=== PATIENT | female | born 1960 | race Caucasian/White ===

== ENCOUNTER 2017-05-05 10:03 | Outpatient (RCR) | payer MEDICARE, SELFPAY | END 2017-06-02 | LOC: PT 10:03 | PROVIDERS: Visit Provider Nurse Practitioner Family | DX: R60.0 Localized edema (principal) | CPT/HCPCS: G8987; G8988; G8989; 97162; 98960 ==

== ENCOUNTER 2017-06-08 08:35 | Outpatient (CLI) | payer MEDICARE, SELFPAY ==
[2017-06-08 14:03] LABS: PHA INR Fingerstick 2.2 (0.9-1.1)
== END 2017-06-08 14:05 | disposition home or self-care (01) ==
LOC: ACC 08:39
PROVIDERS: PCP Emergency Medicine; Visit Provider Emergency Medicine
DX: I82.401 Acute embolism and thrombosis of unspecified deep veins of right lower extremity; Z79.01 Long term (current) use of anticoagulants; Z51.81 Encounter for therapeutic drug level monitoring
CPT/HCPCS: 85610; 99211; G0463

== ENCOUNTER → 2017-06-27 09:00 | Outpatient (CLI) | payer MEDICARE, SELFPAY ==
[2017-06-27 15:59] LABS: PHA INR Fingerstick 3.7 (0.9-1.1)
== END | disposition home or self-care (01) ==
PROVIDERS: PCP Physician Assistant; Visit Provider Physician Assistant
DX: Z79.01 Long term (current) use of anticoagulants (principal); I82.811 Embolism and thrombosis of superficial veins of right lower extremity; Z51.81 Encounter for therapeutic drug level monitoring
CPT/HCPCS: 85610; 99211; G0463

== ENCOUNTER → 2017-07-05 11:33 | Outpatient (CLI) | payer MEDICARE, SELFPAY ==
[2017-07-05 17:01] LABS: PHA INR Fingerstick 2.3 (0.9-1.1)
== END | disposition home or self-care (01) ==
PROVIDERS: Family Provider Physician Assistant; PCP Emergency Medicine; Visit Provider Emergency Medicine
DX: Z79.01 Long term (current) use of anticoagulants (principal); Z51.81 Encounter for therapeutic drug level monitoring
CPT/HCPCS: 85610; 99211; G0463

== ENCOUNTER → 2017-07-18 13:59 | Outpatient (CLI) | payer MEDICARE, SELFPAY ==
--- NOTE | 2017-07-18 14:21 | XR_ITS ---
XR foot LT min 3V HISTORY: Foot pain ITS.REASON: B/L PTTD, COOL EXTREMITY, SKIN CHANGES ORDERING PHYSICIAN: Fatou Russo DPM PATIENT AGE: 56 years COMPARISON: None FINDINGS: Weightbearing views are performed. There is moderate hallux valgus with a first metatarsophalangeal angle of -34 degrees with osteoarthritic change of the first MTP joint and bony hypertrophic change of the distal aspect of the first metatarsal. There is pes planus with Mearys angle of -16 degrees. Hypertrophic changes are present at the talonavicular joint. No fracture or dislocation. There is a small calcaneal spur. IMPRESSION: 1. Pes planus. 2. Calyx valgus with bunion formation and osteoarthritic change of the first MTP joint. 3. Osteoarthritic change of the midfoot
--- NOTE | 2017-07-18 14:21 | XR_ITS ---
XR foot RT min 3V HISTORY: The peripheral ITS.REASON: SKIN CHANGES, B/L PTTD, COOL EXTREMITY ORDERING PHYSICIAN: Fatou Russo DPM PATIENT AGE: 56 years COMPARISON: None FINDINGS: The weightbearing views are performed. There is mild pes planus with osteoarthritic change of the talonavicular joint and the navicular cuneiform joint. There is moderate size calcaneal spur measuring 12 mm. There is moderate hallux valgus with first metatarsophalangeal angle of -44 degrees with osteoarthritic change of the first metatarsophalangeal joint and hypertrophic changes of the distal first metatarsal. No fracture or dislocation. No lytic or blastic change. IMPRESSION: Pes planus with hallux valgus and bunion formation with osteoarthritic change and calcaneal spur
== END ==
PROVIDERS: PCP Emergency Medicine; Referring Provider Podiatrist; Visit Provider Podiatrist
DX: I82.402 Acute embolism and thrombosis of unspecified deep veins of left lower extremity (principal); M20.41 Other hammer toe(s) (acquired), right foot; M20.42 Other hammer toe(s) (acquired), left foot; M21.41 Flat foot [pes planus] (acquired), right foot; M21.42 Flat foot [pes planus] (acquired), left foot; M19.071 Primary osteoarthritis, right ankle and foot; M19.072 Primary osteoarthritis, left ankle and foot; L60.0 Ingrowing nail; R23.9 Unspecified skin changes
CPT/HCPCS: 73630

== ENCOUNTER 2017-07-19 08:18 | Outpatient (CLI) | payer MEDICARE, SELFPAY | END 2017-07-19 15:22 | disposition home or self-care (01) | PROVIDERS: PCP Physician Assistant; Visit Provider Physician Assistant | DX: I82.401 Acute embolism and thrombosis of unspecified deep veins of right lower extremity (principal) | CPT/HCPCS: 85610; 99211; G0463 ==

== ENCOUNTER → 2017-07-28 08:57 | Outpatient (CLI) | payer MEDICARE, SELFPAY ==
--- NOTE | 2017-07-28 09:02 | US_ITS ---
US Arterial Ankle Brachial Ind INDICATION: Leg pain, claudication ORDERING PHYSICIAN: Fatou Russo DPM PATIENT AGE: 57 years TECHNIQUE: Segmental pressures obtained of both right and left leg. These are compared to brachial blood pressure to yield index at each level sampled including summary ANNA. The data sheets from the procedure are available in PACS FINDINGS Rest study only performed today No prior studies available for comparison. Blood pressures reported are in millimeters mercury. RIGHT LEG ANNA = 1.0 Right TBI equals 0.7. Brachial BP: 136 Thigh BP: 156 Calf BP: 134 Ankle PT: 134 Ankle DP : 131 Digit =98 LEFT LEG ANNA = 1.0 Left TBI 0.6 Brachial BPD: 128 Thigh BP: 141 Calf BP: 137 Ankle PT:139 Ankle DP: 135 Digit = 86 Pulses and waveforms: Normal IMPRESSION: 1. The ABIs are normal bilaterally with normal pulses and waveforms. 2. Left TBI is slightly low in the right TBI is borderline suggesting mild small vessel disease
== END ==
PROVIDERS: Family Provider Physician Assistant; PCP Physician Assistant; Visit Provider Podiatrist
DX: I73.9 Peripheral vascular disease, unspecified (principal); M79.671 Pain in right foot; M79.672 Pain in left foot
CPT/HCPCS: 93922

== ENCOUNTER 2017-08-22 12:00 | Outpatient (CLI) | payer MEDICARE, SELFPAY | END 2017-08-22 13:21 | disposition home or self-care (01) | LOC: ACC 12:02 | PROVIDERS: Family Provider Physician Assistant; PCP Emergency Medicine; Visit Provider Emergency Medicine | DX: Z79.01 Long term (current) use of anticoagulants (principal); Z51.81 Encounter for therapeutic drug level monitoring; I82.401 Acute embolism and thrombosis of unspecified deep veins of right lower extremity | CPT/HCPCS: 85610; 99211; G0463 ==

== ENCOUNTER 2017-09-15 10:30 | Outpatient (CLI) | payer MEDICARE, SELFPAY ==
[2017-09-15 13:40] LABS: PHA INR Fingerstick 2.2 (0.9-1.1)
== END 2017-09-15 13:55 | disposition home or self-care (01) ==
LOC: ACC 10:33
PROVIDERS: PCP Physician Assistant; Visit Provider Physician Assistant
DX: Z79.01 Long term (current) use of anticoagulants (principal); Z51.81 Encounter for therapeutic drug level monitoring; I82.401 Acute embolism and thrombosis of unspecified deep veins of right lower extremity
CPT/HCPCS: 85610; 99211; G0463

== ENCOUNTER → 2017-10-13 14:20 | Outpatient (CLI) | payer MEDICARE, SELFPAY ==
[2017-10-13 18:05] LABS: Basophils # 0.1 K/mm3 (0-0.2); Basophils % 0.7 % (0.1-2.0); Eosinophils # 0.2 K/mm3 (0.0-0.4); Hemoglobin 12.5 g/dL (12.2-16.2); Lymphocytes # 1.5 K/mm3 (0.7-4.5); Lymphocytes % 23.2 K/mm3 (10-50); Mean Corpuscular HGB Conc 32.8 g/dL (31.8-35.4); Mean Corpuscular Hemoglobin 30.4 pg (27.0-31.2); Mean Corpuscular Volume 92.8 fl (81-99); Mean Platelet Volume 9.2 fl (7.4-10.4); Monocytes # 0.4 K/mm3 (0.1-1.0); Monocytes % 6.2 % (1.7-9.3); Neutrophils # 4.4 K/mm3 (1.8-7.8); Neutrophils % 66.9 % (37.0-80.0); Platelet Count 275 K/mm3 (142-424); Red Cell Distribution Width 14.4 % (11.5-17.5); White Blood Count 6.6 K/mm3 (4.8-10.8)
[2017-10-13 18:28] LABS: Alanine Aminotransferase 16 U/L (12-78); Albumin Level 3.5 gm/dL (3.4-5.0); Albumin/Globulin Ratio 0.9 (1.1-1.8); Alkaline Phosphatase 89 U/L (46-116); Anion Gap 10.9 mEq/L (5-15); Aspartate Amino Transferase 21 U/L (15-37); Bilirubin,Total 0.2 mg/dL (0.2-1.0); Blood Urea Nitrogen 24 mg/dL (7-18); Calcium 9.5 mg/dL (8.5-10.1); Carbon Dioxide 31 mmol/L (21.0-32.0); Chloride 102 mmol/L (98-107); Creatinine,Serum 0.97 mg/dL (0.55-1.02); Estimated Glomerular Filt Rate 59 ml/min (>60); Free T4 (Free Thyroxine) 1.14 ng/dl (0.76-1.46); GFR (African American) 72 ML/MIN (>60); Globulin 3.7 gm/dl (1.3-3.2); Glucose 92 mg/dL (74-106); Potassium 4.9 mmoL/L (3.5-5.1); Sodium 139 mmol/L (136-145); Thyroid Stimulating Hormone 1.98 uIU/ml (0.358-3.740); Total Protein,Serum 7.2 gm/dL (6.4-8.2)
== END ==
PROVIDERS: Visit Provider Emergency Medicine
DX: Z79.01 Long term (current) use of anticoagulants (principal); R53.83 Other fatigue; R07.9 Chest pain, unspecified
CPT/HCPCS: 80053; 84439; 84443; 85025

== ENCOUNTER 2017-11-21 12:52 | Outpatient (CLI) | payer MEDICARE, SELFPAY ==
[2017-11-21 13:51] LABS: PHA INR Fingerstick 2.8 (0.9-1.1)
== END 2017-11-21 13:57 | disposition home or self-care (01) ==
LOC: ACC 12:54
PROVIDERS: PCP Physician Assistant; Visit Provider Physician Assistant
DX: Z79.01 Long term (current) use of anticoagulants (principal); Z51.81 Encounter for therapeutic drug level monitoring; I82.409 Acute embolism and thrombosis of unspecified deep veins of unspecified lower extremity
CPT/HCPCS: 85610; 99211; G0463

== ENCOUNTER → 2017-12-20 11:26 | Outpatient (REF) | payer MEDICARE, SELFPAY | LOC: LAB 11:26 | PROVIDERS: Visit Provider Physician Assistant | DX: L02.31 Cutaneous abscess of buttock (principal) | CPT/HCPCS: 87070; 87077; 87205 ==

== ENCOUNTER 2017-12-20 11:41 | Outpatient (CLI) | payer MEDICARE, SELFPAY ==
[2017-12-20 15:38] LABS: PHA INR Fingerstick 2.4 (0.9-1.1)
== END 2017-12-20 15:56 | disposition home or self-care (01) ==
LOC: ACC 11:42
PROVIDERS: Visit Provider Physician Assistant
DX: Z79.01 Long term (current) use of anticoagulants (principal); Z51.81 Encounter for therapeutic drug level monitoring; I82.401 Acute embolism and thrombosis of unspecified deep veins of right lower extremity; L02.31 Cutaneous abscess of buttock
CPT/HCPCS: 85610; 87070; 87205; 99211; G0463

== ENCOUNTER → 2018-01-26 06:28 | Outpatient (CLI) | payer MEDICARE, SELFPAY ==
--- NOTE | 2018-01-26 06:31 | NVE_ITS ---
Venous Exam Indications: 782.3 Edema. IMPRESSIONS 1. There is no evidence of significant Reflux. 2. No evidence of deep or superficial vein thrombosis involving the right lower extremity History: PMH: Deep vein thrombosis. Right lower extremity venous duplex evaluation. Doppler flow study including spectral analysis, color and bruno scale imaging. Location: Vascular laboratory. Patient status: Outpatient. CRITICAL FINDINGS - Reported to: HELIO - Read back and verified. - 01/26/18 - 824 - NONE Tables: Venous flow and imaging: + +-------+ + Location Overall Flow properties + +-------+ + Right common femoral Patent Normal phasicity; spontaneous; normal augmentation; compressible + +-------+ + Right saphenofemoral junction Patent Compressible + +-------+ + Right profunda femoral Patent Compressible + +-------+ + Right femoral Patent Normal phasicity; spontaneous; normal augmentation; compressible + +-------+ + Right greater saphenous Patent Normal phasicity; spontaneous; normal augmentation; compressible + +-------+ + Right popliteal Patent Normal phasicity; spontaneous; normal augmentation; compressible + +-------+ + Right posterior tibial Patent Compressible + +-------+ + Right peroneal Patent Compressible + +-------+ + Right gastrocnemius Patent Compressible + +-------+ + Right soleal Patent Compressible + +-------+ + (Report amended ) Electronically signed by: Chico Alejo [id number]
== END ==
PROVIDERS: Family Provider Physician Assistant; PCP Physician Assistant; Visit Provider Internal Medicine
DX: I82.409 Acute embolism and thrombosis of unspecified deep veins of unspecified lower extremity (principal); R06.00 Dyspnea, unspecified; R07.9 Chest pain, unspecified
CPT/HCPCS: 93971

== ENCOUNTER → 2018-01-31 07:16 | Outpatient (CLI) | payer MEDICARE, SELFPAY ==
--- NOTE | 2018-01-31 08:13 | CT_ITS ---
CT angio chest HISTORY: ITS.REASON: chest pain ORDERING PHYSICIAN: Thomas Allan MD PATIENT AGE: 57 years COMPARISON: None TECHNIQUE: Axial images obtained following the administration of 75 mL of Isovue 370 . Sagittal, and coronal reformatted images are also generated and reviewed. All CT scans at the facility use one or more dose reduction, viz: automated exposure control, ma/kV adjustment per patient size (including targeted exams where dose is matched to indication, i.e. head), or iterative reconstruction technique. FINDINGS: PULMONARY ARTERIES:No pulmonary embolus evident. AORTA:No acute finding. No thoracic aortic aneurysm or dissection evident LUNGS:There is a 3 mm noncalcified nodule right lower lobe laterally, a 6 mm noncalcified nodule in the superior segment of the left lower lobe laterally, and a 4 mm noncalcified nodule left lower lobe in the lung bases.. PLEURAL SPACES:No significant effusion. No evidence of pneumothorax. HEART:Unremarkable. Normal heart size. No significant pericardial effusion. MEDIASTINAL AND HILAR STRUCTURES:No mediastinal or hilar mass evident. No dominant adenopathy. BONY STRUCTURES:No acute bony abnormalities apparent. Degenerative changes thoracic spine LYMPH NODES:No enlarged lymph nodes evident UPPER ABDOMEN:Prior gastric surgery. IMPRESSION: 1. No acute finding. No evidence of pulmonary embolus or aortic aneurysm or dissection. 2. There are 3 noncalcified pulmonary nodules largest in the left lower lobe a 6 mm. Suggest 6 month follow-up
--- NOTE | 2018-01-31 08:13 | NM_ITS ---
History and Indications: Hypertension, chronic tobacco use, family history, shortness of breath and fatigue Procedure: Patient received a 0.4 mg of Lexiscan, resting heart rate was 68 bpm resting blood pressure 136/73, with Lexiscan maximum heart rate achieved was 90 bpm which is less than 85% of the maximum predicted heart rate and a blood pressure was 116/49. With Lexiscan patient complained of shortness of breath. Electrocardiogram: Resting electrocardiogram showed sinus rhythm nonspecific ST-T changes, with Lexiscan there is less than 1.[address] segment depression noted from the baseline EKG. The EKG portion of the Lexiscan Myoview is nondiagnostic. Cardiac stress and resting SPECT images: Cardiac stress and rest SPECT images were obtained using technetium 99 Myoview 31.4 mCi at stress 9.6 mCi at rest. Gated SPECT further analysis of segmental wall motion and calculation of the ejection fraction also done. Cardiac stress and rest images show a mild reversible defect involving the anteroapical and apical wall, suggestive of reversible ischemia, computer derived ejection fraction is over 65% with no obvious regional wall motion abnormality, right ventricle is normal size and contractility. This study is technically limited due to patient's body habitus Conclusion: 1. The EKG portion of the Lexiscan Myoview is nondiagnostic. 2. Scintigraphic evidence of mild reversible ischemia involving the anteroapical and apical wall, however this study is technically limited due to patient's body habitus. Computer derived ejection fraction is over 65% with no obvious regional wall motion abnormality, right ventricle is normal size and contractility. 3. Likely abnormal Myoview perfusion imaging
--- NOTE | 2018-01-31 08:39 | HMH.ITSHM ---
NEURONTIN LEVOTHYROXINE METHADONE ATENOLOL
[2018-01-31 11:38] LABS: Blood Urea Nitrogen 28 mg/dL (7-18); Creatinine,Serum 1.18 mg/dL (0.55-1.02); Estimated Glomerular Filt Rate 47 ml/min (>60); GFR (African American) 57 ML/MIN (>60)
== END ==
PROVIDERS: Family Provider Physician Assistant; PCP Physician Assistant; Visit Provider Internal Medicine
DX: R39.9 Unspecified symptoms and signs involving the genitourinary system; R06.09 Other forms of dyspnea; R60.0 Localized edema; R07.9 Chest pain, unspecified
CPT/HCPCS: 36415; 71275; 78452; 82565; 84520; 93017; A9502; J2785; Q9967

== ENCOUNTER → 2018-02-02 11:18 | Outpatient (CLI) | payer MEDICARE, SELFPAY ==
[2018-02-02 11:22] LABS: Microscopic, Urine URINE MICROSCOPIC (MICROSCOPIC)
[2018-02-02 11:49] LABS: Appearance,Urine SL CLOUDY (Clear); Bilirubin,Urine Negative (Negative); Blood, Urine 3+ (Negative); Color,Urine YELLOW (Yellow); Glucose,Urine (UA) Negative (Negative); Ketones,Urine Negative (Negative); Leukocyte Esterase,Urine Negative (Negative); Nitrate,Urine Negative (Negative); Protein,Urine Negative (Negative); Urobilinogen,Urine 0.2 EU/dl (0.2)
[2018-02-02 11:55] LABS: Bacteria,Urine Trace /lpf; WBC,Urine Occasional #/hpf (0-3)
== END ==
PROVIDERS: Internal Medicine Cardiovascular Disease; Family Provider Physician Assistant; PCP Physician Assistant; Visit Provider Emergency Medicine
DX: R39.9 Unspecified symptoms and signs involving the genitourinary system (principal)
CPT/HCPCS: 81001

== ENCOUNTER → 2018-02-09 14:25 | Outpatient (CLI) | payer MEDICARE, SELFPAY ==
[2018-02-09 17:16] LABS: Blood Urea Nitrogen 26 mg/dL (7-18); Calcium 8.5 mg/dL (8.5-10.1); Carbon Dioxide 33 mmol/L (21.0-32.0); Chloride 101 mmol/L (98-107); Estimated Glomerular Filt Rate 51 ml/min (>60); GFR (African American) 62 ML/MIN (>60); Glucose 94 mg/dL (74-106)
[2018-02-09 17:39] LABS: Sodium 134 mmol/L (136-145)
[2018-02-09 17:40] LABS: Anion Gap 4.2 mEq/L (5-15); Potassium 4.2 mmoL/L (3.5-5.1)
== END ==
PROVIDERS: PCP Emergency Medicine; Visit Provider Urology
DX: R06.09 Other forms of dyspnea (principal); R60.0 Localized edema
CPT/HCPCS: 36415; 80048; 83880

== ENCOUNTER → 2018-02-27 09:12 | Outpatient (REF) | payer MEDICARE, SELFPAY ==
[2018-02-27 13:43] LABS: Basophils % 0.8 % (0.1-2.0); Eosinophils # 0.2 K/mm3 (0.0-0.4); Eosinophils % 2.9 % (0.1-12.0); Hematocrit 41.7 % (37.0-47.0); Lymphocytes # 0.9 K/mm3 (0.7-4.5); Lymphocytes % 16.9 K/mm3 (10-50); Mean Corpuscular HGB Conc 31.2 g/dL (31.8-35.4); Mean Corpuscular Hemoglobin 28.8 pg (27.0-31.2); Mean Corpuscular Volume 92.4 fl (81-99); Mean Platelet Volume 9.1 fl (7.4-10.4); Monocytes # 0.3 K/mm3 (0.1-1.0); Monocytes % 5.5 % (1.7-9.3); Neutrophils % 73.9 % (37.0-80.0); Platelet Count 278 K/mm3 (142-424); Red Blood Count 4.51 M/mm3 (4.20-5.40); Red Cell Distribution Width 15.1 % (11.5-17.5); White Blood Count 5.5 K/mm3 (4.8-10.8)
[2018-02-27 14:44] LABS: Alanine Aminotransferase 16 U/L (12-78); Albumin Level 3.4 gm/dL (3.4-5.0); Albumin/Globulin Ratio 0.9 (1.1-1.8); Alkaline Phosphatase 95 U/L (46-116); Anion Gap 12.7 mEq/L (5-15); Aspartate Amino Transferase 17 U/L (15-37); Bilirubin,Total 0.3 mg/dL (0.2-1.0); Blood Urea Nitrogen 22 mg/dL (7-18); Calcium 8.9 mg/dL (8.5-10.1); Carbon Dioxide 29 mmol/L (21.0-32.0); Chloride 102 mmol/L (98-107); Chol/HDL Ratio 3.6 (1-3.5); Cholesterol 178 mg/dL (140-200); Creatinine,Serum 1.01 mg/dL (0.55-1.02); Estimated Glomerular Filt Rate 56 ml/min (>60); GFR (African American) 68 ML/MIN (>60); Globulin 3.6 gm/dl (1.3-3.2); Glucose 86 mg/dL (74-106); HDL Cholesterol 49 mg/dL (29-89); LDL Cholesterol 113 mg/dL (0-130); Potassium 4.7 mmoL/L (3.5-5.1); Sodium 139 mmol/L (136-145); T4 (Thyroxine) 8.7 ug/dl (4.7-13.3); Triglycerides 82 mg/dL (30-200); VLDL Cholesterol 16 mg/dL (0-40)
== END ==
LOC: LAB 09:12
PROVIDERS: Visit Provider Physician Assistant
DX: I11.9 Hypertensive heart disease without heart failure (principal); R53.83 Other fatigue
CPT/HCPCS: 80053; 80061; 82652; 84436; 84443; 85025

== ENCOUNTER 2018-03-05 10:23 | Outpatient (CLI) | payer MEDICARE, SELFPAY ==
--- NOTE | 2018-03-05 10:25 | MM_ITS ---
MM Dig screening mamm BI w/CAD ORDERING PHYSICIAN : GENEVA Lopez PATIENT AGE: 57 years GENDER: Female COMPARISON: Digital mammogram November 2016;. Film mammogram August 2006 INDICATION: ITS.REASON: Breast cancer screening. No hormones. No new complaintsPrevious cyst aspiration Family history. Maternal aunt with breast cancer TECHNIQUE: Standard CC and MLO images were obtained. R2 CAD reviewed. Additional nipple profile cc views bilaterally FINDINGS: Low-density breast with generalized fatty replacement.. Mild to moderate asymmetry with slightly more evident fibroglandular elements throughout the left breast and right RIGHT BREAST:No areas of concern follow-up in one year on right LEFT BREAST: I would note Patient denies female hormones Although the fibroglandular elements is slightly more apparent today, similar asymmetric pattern goes back to at least 2006 & 2004 appears relatively stable. IMPRESSION: Stable bilateral mammogram Generalized fatty replacement with overall Stable mild asymmetry Follow-up in one year recommended BI-RADS Category: 2 Benign Finding(s) RECOMMENDED FOLLOW-UP: 1YR 1 YEAR FOLLOW-UP (A letter has been sent to the patient regarding results of the study.)
[2018-03-05 13:46] LABS: PHA INR Fingerstick 3.8 (0.9-1.1)
== END 2018-03-05 13:51 | disposition home or self-care (01) ==
LOC: RAD 10:24 → ACC 11:42
PROVIDERS: Family Provider Physician Assistant; PCP Emergency Medicine; Visit Provider Physician Assistant
DX: Z12.31 Encounter for screening mammogram for malignant neoplasm of breast (principal); Z79.01 Long term (current) use of anticoagulants
CPT/HCPCS: 77067; 85610; 99211; G0463

== ENCOUNTER 2018-04-19 10:09 | Outpatient (CLI) | payer MEDICARE, SELFPAY ==
[2018-04-19 10:43] LABS: PHA INR Fingerstick 3.3 (0.9-1.1)
== END 2018-04-19 10:45 | disposition home or self-care (01) ==
PROVIDERS: PCP Emergency Medicine; Visit Provider Emergency Medicine
DX: Z51.81 Encounter for therapeutic drug level monitoring (principal); Z79.01 Long term (current) use of anticoagulants; I82.409 Acute embolism and thrombosis of unspecified deep veins of unspecified lower extremity
CPT/HCPCS: 85610; 99211; G0463

== ENCOUNTER 2018-06-20 14:27 | Outpatient (CLI) | payer MEDICARE, SELFPAY ==
[2018-06-20 15:17] LABS: PHA INR Fingerstick 2.2 (0.9-1.1)
== END 2018-06-20 15:29 | disposition home or self-care (01) ==
LOC: ACC 14:30
PROVIDERS: PCP Emergency Medicine; Visit Provider Emergency Medicine
DX: Z51.81 Encounter for therapeutic drug level monitoring (principal); Z79.01 Long term (current) use of anticoagulants; I82.409 Acute embolism and thrombosis of unspecified deep veins of unspecified lower extremity
CPT/HCPCS: 85610; 99211; G0463

== ENCOUNTER → 2018-07-03 09:18 | Outpatient (CLI) | payer MEDICARE, SELFPAY ==
[2018-07-03 10:34] LABS: INR 1.44 (0.9-1.1); Prothrombin Time 14.7 seconds (9.4-11.8)
== END ==
PROVIDERS: Emergency Medicine; PCP Physician Assistant; Visit Provider Internal Medicine Cardiovascular Disease
DX: Z51.81 Encounter for therapeutic drug level monitoring (principal); Z79.01 Long term (current) use of anticoagulants; I82.409 Acute embolism and thrombosis of unspecified deep veins of unspecified lower extremity
CPT/HCPCS: 36415; 85610

== ENCOUNTER 2018-07-11 12:53 | Outpatient (CLI) | payer MEDICARE, SELFPAY ==
[2018-07-11 14:53] LABS: PHA INR Fingerstick 2.3 (0.9-1.1)
== END 2018-07-11 14:59 | disposition home or self-care (01) ==
LOC: ACC 12:54
PROVIDERS: PCP Emergency Medicine; Visit Provider Emergency Medicine
DX: Z51.81 Encounter for therapeutic drug level monitoring (principal); Z79.01 Long term (current) use of anticoagulants; I82.409 Acute embolism and thrombosis of unspecified deep veins of unspecified lower extremity
CPT/HCPCS: 85610; 99211; G0463

== ENCOUNTER 2018-09-18 08:44 | Outpatient (CLI) | payer MEDICARE, SELFPAY ==
[2018-09-18 10:16] LABS: Blood Urea Nitrogen 22 mg/dL (7-18); Creatinine,Serum 1.05 mg/dL (0.55-1.02); Estimated Glomerular Filt Rate 54 ml/min (>60); GFR (African American) 65 ML/MIN (>60)
== END 2018-09-18 10:44 | disposition home or self-care (01) ==
PROVIDERS: PCP Physician Assistant; Visit Provider Anesthesiology Pain Medicine
DX: Z51.81 Encounter for therapeutic drug level monitoring (principal); Z79.01 Long term (current) use of anticoagulants; M47.817 Spondylosis without myelopathy or radiculopathy, lumbosacral region; M47.816 Spondylosis without myelopathy or radiculopathy, lumbar region
CPT/HCPCS: 36415; 82565; 84520; 85610; 93005; 99211; G0463

== ENCOUNTER → 2018-09-20 08:18 | Outpatient (CLI) | payer MEDICARE, SELFPAY ==
--- NOTE | 2018-09-20 08:21 | MR_ITS ---
MR pelvis wo con CLINICAL INDICATION: Left-sided hip and groin pain, left leg pain and numbness ITS.REASON: RADICULOPATHY ORDERING PHYSICIAN: Titi Brown MD PATIENT AGE: 58 years Comparison: None TECHNIQUE: Multiplanar multiecho sequences performed without contrast. FINDINGS: There is extensive motion artifact degrading fine detail. There are osteoarthritic changes involving both hips. There are small bilateral hip joint effusions slightly larger on the left.. No fracture or dislocation. No bony destructive process or soft tissue masses. No evidence of avascular necrosis or bone marrow edema. There is increased T2 signal along the deep aspect of the left iliac is muscle and along the lateral aspect of the iliopsoas at the hip joint level. The etiology of the fluid is indeterminate. This could be due to bursitis or could be posttraumatic.. There is some increased T2 signal along the left aspect of the L5-S1 junction possibly related to type I endplate changes and may be better evaluated with MRI of the lumbar spine There is increased T2 signal along the right lower anterior abdominal wall consistent with an ileostomy site IMPRESSION: Mild bilateral osteoarthritis of the hips with bilateral hip joint effusions slightly larger on the left with fluid along the left iliopsoas muscle laterally extending from the deep iliac is region possibly related to bursitis or could be posttraumatic. No evidence of avascular necrosis, bone marrow edema, or bony destructive process Bilateral osteoarthritis
== END ==
PROVIDERS: PCP Physician Assistant; Visit Provider Anesthesiology Pain Medicine
DX: M47.817 Spondylosis without myelopathy or radiculopathy, lumbosacral region (principal)
CPT/HCPCS: 72195

== ENCOUNTER → 2018-09-26 08:18 | Outpatient (CLI) | payer MEDICARE, SELFPAY ==
--- NOTE | 2018-09-26 08:20 | MR_ITS ---
MR lumbar spine wo/w con, MR 3-d myelogram/MRCP HISTORY: LT sided groin pain. Low back pain. Prior HX back surgery 1999. LT leg pain, numbness, and tingling X1YR. ITS.REASON: RADICULOPATHY ORDERING PHYSICIAN: Titi Brown MD PATIENT AGE: 58 years Comparison: None TECHNIQUE: Standard multiplanar multiecho sequences are performed without and with gadolinium enhancement . 3-D MIP and myelographic images are also rendered and reviewed FINDINGS: There is normal alignment. The spinal cord ends at the T12-L1 level. T10-T11: Mild degenerative disc disease. T11-T12 and T12-L1 have an unremarkable appearance. L1-L2: Mild degenerative disc disease. Mild facet hypertrophic change with mild right lateral recess narrowing. L2-L3: Degenerative disc disease with mild concentric bulging disc along with mild facet and ligamentum flavum hypertrophy with mild bilateral lateral recess and foraminal narrowing. L3-L4: Degenerative disc disease with mild facet and ligamentum flavum hypertrophy with moderate right-sided foraminal narrowing and mild left foraminal narrowing. There are type I endplate changes at this level. L4-L5: Degenerative disc disease with bulging disc. Prior left-sided laminectomy. Mild facet and ligamentum flavum hypertrophy with moderate left-sided foraminal narrowing. There is some minimal enhancement of the posterior aspect of the disc at this region and some minimal enhancement of the left L5 nerve root suggesting some minimal epidural fibrosis. L5-S1: Facet hypertrophic change with moderate to severe left-sided foraminal narrowing with impingement upon the exiting L5 nerve root. There is mild degenerative disc disease at this level with type I endplate changes on the left. No recurrent herniated disc or canal stenosis. IMPRESSION: 1. Multilevel lumbar spondylosis with degenerative disc disease along with facet hypertrophy with lateral recess and foraminal narrowing. Please see above for detailed description at each level. The foraminal narrowing is most severe on the left at L5-S1. 2. Postsurgical changes at L4-L5 with left-sided laminectomy. There is some minimal bulging disc with some minimal enhancement of the posterior aspect of the disc and the left proximal L5 nerve root which may be related to some mild epidural fibrosis.
--- NOTE | 2018-09-26 09:40 | HMH.ITSHM ---
Current Home Medications as stated by this patient Carlos Brunner or public service representative. []KRYSTINA ZARATE NEURONTIN
== END ==
PROVIDERS: PCP Emergency Medicine; Visit Provider Anesthesiology Pain Medicine
DX: M47.817 Spondylosis without myelopathy or radiculopathy, lumbosacral region (principal)
CPT/HCPCS: 72158; 76376; A9576

== ENCOUNTER 2018-12-04 13:42 | Outpatient (CLI) | payer MEDICARE, SELFPAY ==
[2018-12-04 14:21] LABS: PHA INR Fingerstick 2.8 (0.9-1.1)
== END 2018-12-04 14:22 | disposition home or self-care (01) ==
LOC: ACC 13:43
PROVIDERS: PCP Emergency Medicine; Visit Provider Emergency Medicine
DX: Z51.81 Encounter for therapeutic drug level monitoring (principal); Z79.01 Long term (current) use of anticoagulants; I82.409 Acute embolism and thrombosis of unspecified deep veins of unspecified lower extremity
CPT/HCPCS: 85610; 99211; G0463

== ENCOUNTER → 2019-01-15 17:19 | Outpatient (CLI) | payer MEDICARE, SELFPAY ==
[2019-01-15 20:27] LABS: Amphetamine/Metha Screen,Urine Negative ng/mL (<1000); Barbiturates Screen,Urine Negative ng/mL (<200); Benzodiazepines Screen,Urine Negative ng/mL (<200); Cannabinoid Screen,Urine Negative ng/mL (<50); Cocaine Screen,Urine Negative ng/mL (<300); Methadone Screen,Urine Positive ng/mL (<300); Opiate Screen,Urine Negative ng/mL (<300); Phencyclidine Screen,Urine Negative ng/mL (<25)
== END ==
PROVIDERS: Visit Provider Physician Assistant
DX: Z79.899 Other long term (current) drug therapy (principal)
CPT/HCPCS: 80305

== ENCOUNTER → 2019-01-31 20:19 | Outpatient (CLI) | payer MEDICARE, SELFPAY | PROVIDERS: PCP Physician Assistant; Visit Provider Physician Assistant | DX: G47.33 Obstructive sleep apnea (adult) (pediatric) (principal); I10 Essential (primary) hypertension; R40.0 Somnolence; R06.83 Snoring | CPT/HCPCS: 95810 ==

== ENCOUNTER → 2019-02-25 20:17 | Outpatient (CLI) | payer MEDICARE, SELFPAY | PROVIDERS: PCP Physician Assistant; Visit Provider Physician Assistant | DX: G47.33 Obstructive sleep apnea (adult) (pediatric) (principal); J44.9 Chronic obstructive pulmonary disease, unspecified | CPT/HCPCS: 95811 ==

== ENCOUNTER 2019-03-26 14:17 | Outpatient (CLI) | payer MEDICARE, SELFPAY | END 2019-03-26 15:47 | disposition home or self-care (01) | LOC: ACC 14:18 | PROVIDERS: PCP Emergency Medicine; Visit Provider Emergency Medicine | DX: Z51.81 Encounter for therapeutic drug level monitoring (principal); Z79.01 Long term (current) use of anticoagulants | CPT/HCPCS: 85610; 99211; G0463 ==

== ENCOUNTER → 2019-05-07 11:27 | Outpatient (CLI) | payer MEDICARE, SELFPAY | PROVIDERS: PCP Emergency Medicine; Visit Provider Nurse Practitioner Family | DX: Z51.81 Encounter for therapeutic drug level monitoring (principal); Z79.01 Long term (current) use of anticoagulants ==

== ENCOUNTER 2019-05-07 12:12 | Outpatient (CLI) | payer MEDICARE, SELFPAY ==
[2019-05-07 12:59] LABS: INR 5.71 (0.9-1.1); Prothrombin Time 54.7 seconds (9.4-11.8)
[2019-05-07 13:53] LABS: PHA INR Fingerstick 5.1 (0.9-1.1)
== END 2019-05-07 15:07 | disposition home or self-care (01) ==
LOC: ACC 12:15
PROVIDERS: Nurse Practitioner Family; Visit Provider Emergency Medicine
DX: R09.89 Other specified symptoms and signs involving the circulatory and respiratory systems (principal); R69 Illness, unspecified; Z51.81 Encounter for therapeutic drug level monitoring; Z79.01 Long term (current) use of anticoagulants
CPT/HCPCS: 36415; 85610; 86695; 86696; 99211; G0463

== ENCOUNTER → 2020-01-22 18:43 | Outpatient (CLI) | payer MEDICARE, SELFPAY ==
[2020-01-22 19:04] LABS: Basophils # 0.1 K/mm3 (0-0.2); Basophils % 1.1 % (0.1-2.0); Eosinophils # 0.3 K/mm3 (0.0-0.4); Hematocrit 38.6 % (37.0-47.0); Hemoglobin 12.5 g/dL (12.2-16.2); Lymphocytes # 2.2 K/mm3 (0.7-4.5); Lymphocytes % 30.9 % (10-50); Mean Corpuscular HGB Conc 32.4 g/dL (31.8-35.4); Mean Corpuscular Hemoglobin 30.5 pg (27.0-31.2); Mean Corpuscular Volume 94.1 fl (81-99); Mean Platelet Volume 8.8 fl (7.4-10.4); Monocytes # 0.5 K/mm3 (0.1-1.0); Monocytes % 6.6 % (1.7-9.3); Neutrophils % 57.4 % (37.0-80.0); Platelet Count 288 K/mm3 (142-424); Red Cell Distribution Width 14.1 % (11.5-17.5)
[2020-01-22 19:07] LABS: Chloride 99 mmol/L (98-107)
[2020-01-22 19:08] LABS: Potassium 4.5 mmoL/L (3.5-5.1); Sodium 138 mmol/L (136-145)
[2020-01-22 19:10] LABS: Alanine Aminotransferase 12 U/L (12-78); Alkaline Phosphatase 85 U/L (38-126); Anion Gap 12.5 mEq/L (5-15); Aspartate Amino Transferase 29 U/L (14-36); Bilirubin,Total 0.5 mg/dl (0.2-1.3); Blood Urea Nitrogen 19 mg/dl (7-17); Carbon Dioxide 31 mmol/L (22.0-30.0); Estimated Glomerular Filt Rate 57 ml/min (>60); GFR (African American) 69 ML/MIN (>60)
[2020-01-22 19:11] LABS: Albumin Level 3.9 g/dl (3.5-5.0); Albumin/Globulin Ratio 1.1 (1.1-1.8); Calcium 9.3 mg/dl (8.4-10.2); Chol/HDL Ratio 3.5 (1-3.5); Cholesterol 202 mg/dl (140-200); Globulin 3.4 g/dL (1.3-3.2); Glucose 80 mg/dl (74-100); HDL Cholesterol 58 mg/dl (40-60); Total Protein,Serum 7.3 g/dl (6.3-8.2); Triglycerides 116 mg/dl (30-150); VLDL Cholesterol 23 mg/dL (0-40)
[2020-01-22 19:22] LABS: Direct LDL Cholesterol 110.04 mg/dL (100-129)
[2020-01-22 19:27] LABS: T4 (Thyroxine) 9.7 ug/dl (5.53-11.0)
[2020-01-22 19:32] LABS: 25-OH Vitamin D, Total 24.4 ng/mL (30-100)
[2020-01-22 19:41] LABS: Thyroid Stimulating Hormone 3.88 uIU/mL (0.465-4.68)
== END ==
PROVIDERS: Visit Provider Physician Assistant
DX: E07.9 Disorder of thyroid, unspecified (principal); E55.9 Vitamin D deficiency, unspecified; I11.9 Hypertensive heart disease without heart failure
CPT/HCPCS: 80053; 80061; 82306; 84436; 84443; 85025

== ENCOUNTER 2020-01-24 08:56 | Outpatient (CLI) | payer MEDICARE, SELFPAY ==
[2020-01-24 13:46] LABS: PHA INR Fingerstick 2.8 (0.9-1.1)
== END 2020-01-24 13:52 | disposition home or self-care (01) ==
LOC: ACC 08:57
PROVIDERS: Emergency Medicine; PCP Physician Assistant; Visit Provider Internal Medicine
DX: Z79.01 Long term (current) use of anticoagulants (principal)
CPT/HCPCS: 85610; 99211; G0463

== ENCOUNTER → 2020-01-24 16:12 | Outpatient (CLI) | payer MEDICARE, SELFPAY ==
[2020-01-26 08:58] LABS: Covid-19 Nasal PCR Sendout UK Not Detected
== END ==
PROVIDERS: PCP Physician Assistant; Visit Provider Nurse Practitioner
DX: Z03.818 Encounter for observation for suspected exposure to other biological agents ruled out (principal); Z51.81 Encounter for therapeutic drug level monitoring; Z79.01 Long term (current) use of anticoagulants
CPT/HCPCS: 85610; 99211; G0463; U0003

== ENCOUNTER 2020-04-06 13:16 | Outpatient (CLI) | payer MEDICARE, SELFPAY ==
--- NOTE | 2020-04-06 13:31 | MR_ITS ---
PROCEDURE: MR LUMBAR SPINE WO CON CLINICAL INDICATION: SPONDYLS WITHOUT MYELOPATHY OR RADICULOPATHY CHRONIC LOW BACK PAIN, PREVIOUS BACK SURGERIES, TINGLING/NUMBNESS DOWN LEFT LEG. PRIOR 09-26-18 COMPARISON: MR SPLUMBWW MR lumbar spine wo/w con from 09/26/2018 TECHNIQUE: Standard multiplanar multiecho sequences are performed without contrast. 3-D MIP and myelographic images are also rendered and reviewed FINDINGS: There is normal alignment. The spinal cord ends at the T12-L1 level. T12-L1: Unremarkable. L1-L2: Degenerative disc disease with anterior osteophytes. L2-L3: Degenerative disc disease with mild bulging disc with facet and ligamentum hypertrophy. L3-L4: Degenerative disc disease. L4-5: Degenerative disc disease. Prior L5 left-sided laminectomy. There is a small broad based area of bony ridging versus small disc osteophyte complex at L4-5 centrally and slightly to the left abutting the anterior medial aspect of the left L5 nerve root.. There is mild bilateral lateral recess and foraminal narrowing. L5-S1: Moderate left-sided facet and ligamentum hypertrophy which is causing left-sided foraminal narrowing and impinging upon the exiting L5 nerve root similar to the previous exam. There has been a prior laminotomy on the left at L5. No extruded herniated disc is evident. IMPRESSION: 1. Multilevel lumbar spondylosis. Please see above for detailed description at each level. 2. L4-5: Degenerative disc disease. Prior L5 left-sided laminectomy. There is a small broad based area of bony ridging versus small disc osteophyte complex at L4-5 centrally and slightly to the left slightly more prominent compared to the previous exam abutting the anterior medial aspect of the left L5 nerve root.. There is mild bilateral lateral recess and foraminal narrowing. 3. L5-S1: Moderate left-sided facet and ligamentum hypertrophy which is causing left-sided foraminal narrowing and impinging upon the exiting L5 nerve root similar to the previous exam. There has been a prior laminotomy on the left at L5. 4. No extruded herniated disc is evident. Dictated by: Chico Alejo MD 04/08/2020 09:45 Chico Alejo MD in [place] 04/08/2020 09:45
[2020-04-06 14:53] LABS: PHA INR Fingerstick 2.7 (0.9-1.1)
--- NOTE | 2020-04-06 16:38 | ECG_ITS ---
APPROVED REPORT Exam: Resting ECG HR:68 bpm ECG Measurements Heart Rate 68 AXES WY 126 P 16 QRSd 78 QRS 24 QT 406 T -1 QTc 431 Conclusion Normal sinus rhythm Normal ECG Electronically signed by : Reed Raphael, 04/07/2020 14:47:39
== END 2020-04-06 14:54 | disposition home or self-care (01) ==
PROVIDERS: Emergency Medicine; PCP Physician Assistant; Visit Provider Anesthesiology Pain Medicine
DX: M47.817 Spondylosis without myelopathy or radiculopathy, lumbosacral region (principal); Z79.899 Other long term (current) drug therapy; Z51.81 Encounter for therapeutic drug level monitoring; Z79.01 Long term (current) use of anticoagulants
CPT/HCPCS: 72148; 76376; 85610; 93005; 99211; G0463

== ENCOUNTER → 2020-06-16 09:12 | Outpatient (CLI) | payer MEDICARE, SELFPAY ==
--- NOTE | 2020-06-16 09:18 | CA_ITS ---
APPROVED REPORT EXAM: Comprehensive 2D, Doppler, and color-flow Echocardiogram Marketing Rep: Abbi Clay CRT Ht: 5 ft 2 in Wt: 189lbs BSA: 1.87 BP: 123/75 mmHg Indications: Shortness of Breath, Fatigue, Peripheral Edema, Hypertension/HDD, Abnormal ECG, Fatigue, Pre-Op 2D Dimensions LVOT 1.67 cm (M/F) 1.5-2.5 M-Mode Dimensions RVDd 3.75 cm (0.9-2.6) LA Diam 4.06 cm (1.9-4.0) LVDd 5.65 cm (3.5-5.7) Ao Diam 4.13 cm (2.0-3.7) LVDs 3.98 cm (3.5-5.7) IVSd 0.99 cm (0.6-1.1) PWd 0.72 cm (0.6-1.1) EF (Teich) 55.90% FS 29.60% EDV (Teich) 156.80 mL ESV (Teich) 69.20 mL LV Diastology E Decel Time 170.00 (160-240 msec) E/A Ratio 1.15 MED E' 9.80 (< 7 cm/sec) MED A' 6.50 cm/s E'/MED E' Ratio 7.14 (>14) LAT E' 12.10 (<10 cm/sec) LAT A' 6.10 cm/s E/LAT E' Ratio 5.79 (>14) Aortic Valve AO Peak GR. 6.60 mmHg Mitral Valve MV A Velocity 61.00 (40-130 cm/s) E/A Ratio 1.15 MV Decel. Time 170.00 (160-240 ms) Tricuspid Valve TR P. Velocity 254.00 cm/s RAP Estimate 10.00 mmHg RVSP 35.80 mmHg Left Ventricle Left atrium is qualitatively mildly enlarged, left ventricle is normal size, left ventricle wall thickness upper limit of the normal, there is preserved left ventricular systolic function, visually estimated ejection fraction 55% with no regional wall motion abnormality, diastolic parameters are within normal range. Endocardial surfaces are very poorly visualized. Right Ventricle Right atrium and right ventricular qualitatively normal size and function. Aortic Valve Aortic valve is grossly normal, there is no aortic stenosis or aortic insufficiency. Mitral Valve Mitral valve is grossly normal, there is trace mitral regurgitation. Tricuspid Valve Tricuspid valve grossly normal, there is trace tricuspid regurgitation, tricuspid regurgitation jet velocity is inadequate for calculation of the right ventricular systolic pressure. Pulmonic Valve Pulmonic valve is poorly visualized. Great Vessels Aortic root is normal size. Pericardium No significant pericardial effusion noted. Conclusion 1. Qualitatively mildly enlarged left atrium, normal left ventricular size, visually estimated ejection fraction 55% with no regional wall motion abnormality, diastolic parameters are within normal range. 2. Trace mitral and tricuspid regurgitation. 3. No significant pericardial effusion noted. Inferior vena cava is normal size with normal inspiratory collapse. Electronically signed by : Florencio Bess, 06/17/2020 06:03:32
== END ==
LOC: RT 09:15
PROVIDERS: PCP Physician Assistant; Visit Provider Physician Assistant
DX: Z01.810 Encounter for preprocedural cardiovascular examination (principal); R06.02 Shortness of breath; R53.83 Other fatigue; R94.31 Abnormal electrocardiogram [ECG] [EKG]
CPT/HCPCS: 93306

== ENCOUNTER → 2021-02-06 15:10 | Outpatient (CLI) | payer MEDICARE, SELFPAY ==
--- NOTE | 2021-02-07 09:29 | PC.NURSE ---
PATIENT NOTIFIED OF POSITIVE COVID TEST AT THIS TIME
== END ==
PROVIDERS: PCP Physician Assistant; Visit Provider Physician Assistant
DX: Z20.822 Contact with and (suspected) exposure to COVID-19 (principal); U07.1 COVID-19
CPT/HCPCS: U0003

== ENCOUNTER 2021-02-13 15:56 | Emergency (ER) | payer MEDICARE, SELFPAY ==
--- NOTE | 2021-02-13 17:31 | XR_ITS ---
PROCEDURE INFORMATION: Exam: XR Chest Exam date and time: 02/13/2021 5:31 PM Age: 60 years old Clinical indication: Cough and shortness of breath; Additional info: Cough, covid positive TECHNIQUE: Imaging protocol: XR of the chest. Views: 1 view. COMPARISON: CR CXR CHEST(2 VIEWS-NOT PORTABLE) 05/05/2017 7:41 AM FINDINGS: Lungs: Faint left basilar opacities noted Pleural spaces: Unremarkable. No pleural effusion. No pneumothorax. Heart/Mediastinum: Unremarkable. No cardiomegaly. Bones/joints: Unremarkable. IMPRESSION: Faint left basilar opacities could represent atelectasis or infiltrate
--- NOTE | 2021-02-13 17:45 | HMH.EDUTC ---
[facility] [place] Impression: COVID-19, Bronchitis Disposition: Hospice - Medical Facility Condition on Discharge: Good Instructions: DI for COVID-19 (Suspected or Confirmed ), Preventing the Spread of Coronavirus Discharge Instructions Additional Instructions: Drink plenty of fluids. Take tylenol or ibuprofen for pain or fever. Take the medications as directed. Follow up with your regular doctor. GO TO THE ER FOR ANY WORSENING SYMPTOMS Don't start the oral steroids until tomorrow, since you had the shot here today. The cough medication (promethazine dm) will make you drowsy, so don't drive or operate heavy machinery after taking it. Prescriptions: Promethazine/Dextromethorphan [Promethazine-Dm Syrup] 5 ml PO Q6HP PRN #240 ml PRN Reason: Cough Transmission Status: Received by [facility] # dexAMETHasone [Decadron] 6 mg PO DAILY 6 Days #6 tab Transmission Status: Received by [facility] # Referrals: Louisa Parks PA [Primary Care Provider] - Time of Disposition: 18:26 Medical Decision Making - Medical Records Medical records reviewed: No: I reviewed the patient's medical records. - Jonathon Inquiry Pt receiving controlled substance: No Vital Signs: 02/13/21 18:01 02/13/21 18:39 Temperature 98.2 F 98.6 F Temperature Source Oral Pulse Rate 77 Pulse Rate [Left] 67 Respiratory Rate 20 18 Blood Pressure 133/85 Blood Pressure [Right Arm] 136/86 Blood Pressure Mean [Right Arm] 102 02 Sat by Pulse Oximetry 95 Orders (Tests/Meds): ED MEDICATIONS Discontinued Medications Generic Name Dose Route Start Last Admin Trade Name Freq PRN Reason Stop Dose Admin Methylprednisolone Sodium Succinate 125 mg 02/13/21 18:22 02/13/21 18:35 Methylprednisolone Sod Succ 125mg Vial IM 02/13/21 18:23 125 mg ONCE ONE Administration - Radiology Data #1 Image(s): Chest Image Reviewed: Yes I reviewed the patient's radiology image, Yes I have reviewed radiologist's interpretation Preliminary Findings: Abnormal PROCEDURE INFORMATION: Exam: XR Chest Exam date and time: 02/13/2021 5:31 PM Age: 60 years old Clinical indication: Cough and shortness of breath; Additional info: Cough, covid positive TECHNIQUE: Imaging protocol: XR of the chest. Views: 1 view. COMPARISON: CR CXR CHEST(2 VIEWS-NOT PORTABLE) 05/05/2017 7:41 AM FINDINGS: Lungs: Faint left basilar opacities noted Pleural spaces: Unremarkable. No pleural effusion. No pneumothorax. Heart/Mediastinum: Unremarkable. No cardiomegaly. Bones/joints: Unremarkable. IMPRESSION: Faint left basilar opacities could represent atelectasis or infiltrate [facility] [place] General Stated complaint: covid symptoms worsening Time Seen by Provider: 02/13/21 17:45 - History of Present Illness Provider Complaint: She is here stating that she has got worsening chest congestion. She was diagnosed with covid-19 last week. She states that she got better from that, then she started to get her current chest congestion. - Related Data Home Medications Medication Instructions Recorded Confirmed gabapentin 800 mg tablet 800 mg PO TID tab 06/16/20 12/15/20 methadone 10 mg tablet 10 mg PO TID tab 06/16/20 12/15/20 Previous Rx's Medication Instructions Recorded cholecalciferol (vitamin D3) 25 1,000 unit PO DAILY #90 cap 03/12/20 mcg (1,000 unit) capsule ergocalciferol (vitamin D2) 1,250 1,250 mcg PO WEEKLY #14 cap 07/06/20 mcg (50,000 unit) capsule atenolol 50 mg tablet See Rx Instructions .ROUTE 12/31/20 .COMPLEX #90 tab furosemide 40 mg tablet See Rx Instructions .ROUTE 01/14/21 .COMPLEX #90 tab levothyroxine 50 mcg tablet See Rx Instructions .ROUTE 01/14/21 .COMPLEX #90 tab warfarin 5 mg tablet See Rx Instructions .ROUTE 01/14/21 .COMPLEX #111 tab dicyclomine 10 mg capsule 10 mg
[2021-02-13 18:01] VITALS: BP 136/86; PULSE 67; RESP 20; TEMP 36.8; O2SAT 95; BMI 32.5
[2021-02-13 18:39] VITALS: BP 133/85; PULSE 77; RESP 18; TEMP 37
== END 2021-02-13 18:44 | disposition hospice, inpatient (51) ==
PROVIDERS: Emergency Provider Nurse Practitioner Family; PCP Physician Assistant
DX: U07.1 COVID-19 (principal); F41.8 Other specified anxiety disorders; I25.10 Atherosclerotic heart disease of native coronary artery without angina pectoris; I10 Essential (primary) hypertension; E03.9 Hypothyroidism, unspecified; F17.210 Nicotine dependence, cigarettes, uncomplicated
CPT/HCPCS: G0463; 71045; 96372; 99202

== ENCOUNTER → 2021-02-15 21:45 | Outpatient (CLI) | payer MEDICARE, SELFPAY ==
--- NOTE | 2021-02-16 11:47 | PC.NURSE ---
PATIENT NOTIFIED OF POSITIVE COVID TEST AT THIS TIME
== END ==
PROVIDERS: PCP Emergency Medicine; Visit Provider Emergency Medicine
DX: Z20.822 Contact with and (suspected) exposure to COVID-19 (principal); U07.1 COVID-19
CPT/HCPCS: C9803; U0003; U0005

== ENCOUNTER 2021-03-15 12:42 | Outpatient (CLI) | payer MEDICARE, SELFPAY ==
[2021-03-15 15:08] LABS: PHA INR Fingerstick 2.3 (0.9-1.1)
== END 2021-03-15 15:17 | disposition home or self-care (01) ==
LOC: ACC 12:43
PROVIDERS: Emergency Medicine; PCP Physician Assistant; Visit Provider Physician Assistant
DX: Z51.81 Encounter for therapeutic drug level monitoring (principal); Z79.01 Long term (current) use of anticoagulants
CPT/HCPCS: 85610; 99211; G0463

== ENCOUNTER → 2021-05-05 15:08 | Outpatient (CLI) | payer MEDICARE, SELFPAY | PROVIDERS: PCP Physician Assistant; Visit Provider Nurse Practitioner | DX: Z20.822 Contact with and (suspected) exposure to COVID-19 (principal) | CPT/HCPCS: C9803; U0003; U0005 ==

== ENCOUNTER 2021-05-19 11:43 | Emergency (ER) | payer MEDICARE, SELFPAY ==
[2021-05-19 11:44] VITALS: BP 162/86; PULSE 80; RESP 18; TEMP 36.6; O2SAT 97; BMI 32.9
[2021-05-19 12:00] VITALS: BP 134/70; PULSE 85; RESP 16; O2SAT 100
[2021-05-19 12:50] VITALS: BP 150/80; PULSE 88; RESP 16; O2SAT 99
--- NOTE | 2021-05-19 12:53 | PC.NURSE ---
Patient was walking around the room, yelling out that she needed someone to help her and that her legs were cramping up. Went in to patient's room and attempted to calm her down. Advised her that we had medicated her per MAR and she needed to give the medicine some time to work. Pt continued to yell and smack the bedside table. I advised patient again she needed to try and calm down and give the medicine some time to work. V/S obtained at this time and are as noted. Pt laying in bed at this time, trying to relax
--- NOTE | 2021-05-19 12:58 | HMH.EDANX ---
ED Disposition Clinical Impression: Anxiety Disposition: Home, Self-Care Condition on Discharge: Good Instructions: Anxiety Disorders Additional Instructions: Please follow up with your primary care physician in 2-3 days for further management. Please continue to go to the suboxone clinic for treatment. I have also placed you a script for clonidine please take as prescribed. Return for any concerning symptoms such as ches tpain, difficulty breathing, or other worsening symptoms. Prescriptions: cloNIDine HCL [cloNIDine 0.1mg Tablet] 0.1 mg PO BID #9 tab Transmission Status: Received by [facility] Referrals: Louisa Parks PA [Primary Care Provider] - Time of Disposition: 13:35 - Critical Care Critical Care Time: No Attestation: On 05/19/21, the high probability of a clinically significant, sudden or life threatening deterioration of the following system(s) required my full and direct attention, intervention and personal management. The time I documented below is in addition to time spent performing reported procedures but includes the following listed in this critical care notation. Medical Decision Making - Medical Records Medical records reviewed: Yes: I reviewed the patient's medical records. - Jonathon Inquiry Pt receiving controlled substance: No Vital Signs: 05/19/21 11:44 05/19/21 12:00 05/19/21 12:50 Temperature 97.9 F Temperature Source Oral Pulse Rate 85 88 Pulse Rate [Left Radial] 80 Respiratory Rate 18 16 16 Blood Pressure 134/70 150/80 H Blood Pressure [Right Arm] 162/86 H Blood Pressure Mean 94 Blood Pressure Mean [Right Arm] 111 Blood Pressure Source Automatic Cuff Blood Pressure Source [Right Arm] Automatic Cuff Blood Pressure Position Sitting Blood Pressure Position [Right Arm] Sitting 02 Sat by Pulse Oximetry 97 100 99 Oxygen Delivery Method Room Air Room Air 05/19/21 13:20 Temperature 98.2 F Temperature Source Oral Pulse Rate 88 Pulse Rate [Left Radial] Respiratory Rate 16 Blood Pressure 148/84 H Blood Pressure [Right Arm] Blood Pressure Mean Blood Pressure Mean [Right Arm] Blood Pressure Source Automatic Cuff Blood Pressure Source [Right Arm] Blood Pressure Position Sitting Blood Pressure Position [Right Arm] 02 Sat by Pulse Oximetry Oxygen Delivery Method Room Air - Lab Data Lab results reviewed: Yes: I reviewed the patient's lab results. Orders (Tests/Meds): ED MEDICATIONS Discontinued Medications Generic Name Dose Route Start Last Admin Trade Name Freq PRN Reason Stop Dose Admin Lorazepam 1 mg 05/19/21 12:12 05/19/21 12:21 Lorazepam 1mg Tablet PO 05/19/21 12:13 1 mg ONCE ONE Administration Medical Decision Narrative: Mrs. Brunner is a 60-year-old female with past medical history for methadone use who presents to the emergency department for restlessness following Suboxone dose. Patient is hemodynamically stable on arrival. Patient is very agitated and not cooperative with staff. Patient is given 1mg Ativan p.o. but continues to be noncooperative. Patient's vital signs are monitored in the emergency department for an hour and a half patient remains hemodynamically stable with no obvious signs of withdrawal. Concern for seeking behavior. Patient continues to ask for pain meds for her legs. Discussed with patient giving her a prescription for clonidine, following this the restlessness resolves, patient is agreeable to plan. Patient is given a prescription for clonidine and informed to follow-up with her primary care physician who prescribes her methadone. Patient is discharged in stable condition. Anxiety HPI - General Chief Complaint: Anxiety Stated Complaint: side effects from methadone Time Seen by Provider: 05/19/21 11:55 Mode of Arrival: Ambulatory Limitations: No Limitations Description of Symptoms (Recalled from ER Triage Doc. by RN): nervous/scared after taking subaxone, pt usu
[2021-05-19 13:20] VITALS: BP 148/84; PULSE 88; RESP 16; TEMP 36.8; O2SAT 99
== END 2021-05-19 13:21 | disposition home or self-care (01) ==
PROVIDERS: Emergency Provider Student in an Organized Health Care Education/Training Program; PCP Physician Assistant
DX: F41.8 Other specified anxiety disorders (principal); M54.50 Low back pain, unspecified; I25.10 Atherosclerotic heart disease of native coronary artery without angina pectoris; I10 Essential (primary) hypertension; E03.9 Hypothyroidism, unspecified; F17.210 Nicotine dependence, cigarettes, uncomplicated; Z96.642 Presence of left artificial hip joint; Z79.899 Other long term (current) drug therapy
CPT/HCPCS: 99281

== ENCOUNTER → 2021-06-04 10:20 | Outpatient (CLI) | payer MEDICARE, SELFPAY ==
[2021-06-04 10:52] LABS: Basophils # 0.1 K/mm3 (0-0.2); Basophils % 1.5 % (0.1-2.0); Eosinophils # 0.3 K/mm3 (0.0-0.4); Hematocrit 43.6 % (37.0-47.0); Hemoglobin 13.9 g/dL (12.2-16.2); Lymphocytes # 1.3 K/mm3 (0.7-4.5); Mean Corpuscular HGB Conc 31.9 g/dL (31.8-35.4); Mean Corpuscular Hemoglobin 30.6 pg (27.0-31.2); Mean Platelet Volume 8.9 fl (7.4-10.4); Monocytes # 0.4 K/mm3 (0.1-1.0); Monocytes % 5.2 % (1.7-9.3); Neutrophils # 5.8 K/mm3 (1.8-7.8); Neutrophils % 73.3 % (37.0-80.0); Platelet Count 373 K/mm3 (142-424); Red Blood Count 4.54 M/mm3 (4.20-5.40); Red Cell Distribution Width 14.3 % (11.5-17.5); White Blood Count 7.9 K/mm3 (4.8-10.8)
[2021-06-04 11:49] LABS: Chloride 102 mmol/L (98-107); Potassium 4.3 mmoL/L (3.5-5.1); Sodium 138 mmol/L (136-145)
[2021-06-04 11:52] LABS: Alanine Aminotransferase 15 U/L (12-78); Albumin Level 4.1 g/dl (3.5-5.0); Albumin/Globulin Ratio 1.4 (1.1-1.8); Alkaline Phosphatase 91 U/L (38-126); Anion Gap 13.3 mEq/L (5-15); Aspartate Amino Transferase 27 U/L (14-36); Bilirubin,Total 0.3 mg/dl (0.2-1.3); Blood Urea Nitrogen 26 mg/dl (7-17); Calcium 9.4 mg/dl (8.4-10.2); Carbon Dioxide 27 mmol/L (22.0-30.0); Cholesterol 207 mg/dl (140-200); Estimated Glomerular Filt Rate 51 ml/min (>60); GFR (African American) 61 ML/MIN (>60); Glucose 98 mg/dl (74-100); Total Protein,Serum 7.1 g/dl (6.3-8.2); Triglycerides 105 mg/dl (30-150); VLDL Cholesterol 21 mg/dL (0-40)
[2021-06-04 11:53] LABS: Chol/HDL Ratio 3.3 (1-3.5); HDL Cholesterol 63 mg/dl (40-60)
[2021-06-04 12:03] LABS: Direct LDL Cholesterol 106.55 mg/dL (100-129)
[2021-06-04 12:09] LABS: Free T4 (Free Thyroxine) 1.33 ng/dl (0.78-2.19)
[2021-06-04 12:23] LABS: Thyroid Stimulating Hormone 0.64 uIU/mL (0.465-4.68)
[2021-06-04 12:35] LABS: 25-OH Vitamin D, Total 51.9 ng/mL (30-100)
== END ==
PROVIDERS: Visit Provider Nurse Practitioner Family
DX: E03.9 Hypothyroidism, unspecified (principal); R53.83 Other fatigue; E55.9 Vitamin D deficiency, unspecified; Z09 Encounter for follow-up examination after completed treatment for conditions other than malignant neoplasm
CPT/HCPCS: 36415; 80053; 80061; 82306; 84439; 84443; 85025

== ENCOUNTER 2021-06-23 09:04 | Outpatient (CLI) | payer MEDICARE, SELFPAY ==
[2021-06-23 09:41] LABS: PHA INR Fingerstick 2.2 (0.9-1.1)
== END 2021-06-23 09:51 | disposition home or self-care (01) ==
LOC: ACC 09:05
PROVIDERS: PCP Emergency Medicine; Visit Provider Emergency Medicine
DX: Z51.81 Encounter for therapeutic drug level monitoring (principal); Z79.01 Long term (current) use of anticoagulants
CPT/HCPCS: 85610; 99211; G0463

== ENCOUNTER → 2021-06-24 13:46 | Outpatient (CLI) | payer MEDICARE, SELFPAY | PROVIDERS: Visit Provider Nurse Practitioner Family | DX: R82.90 Unspecified abnormal findings in urine (principal) | CPT/HCPCS: 87086 ==

== ENCOUNTER → 2021-07-26 16:00 | Outpatient (CLI) | payer MEDICARE, SELFPAY ==
[2021-07-26 16:03] LABS: Adenovirus,PCR Not Detected (NotDetected); Bordetella Pertussis Not Detected (NotDetected); Chlamydophila Pneumoniae, PCR Not Detected (NotDetected); Coronavirus 19, PCR Not Detected (NotDetected); Coronavirus 229E Not Detected (NotDetected); Coronavirus NL63 Not Detected (NotDetected); Coronavirus OC43 Not Detected (NotDetected); Coronovirus HKU1,PCR Not Detected (NotDetected); Human Metapneumovirus Not Detected (NotDetected); Influenza A, PCR Not Detected (NotDetected); Influenza AH1, 2009 Not Detected (NotDetected); Influenza AH1, PCR Not Detected (NotDetected); Influenza AH3,PCR Not Detected (NotDetected); Influenza B, PCR Not Detected (NotDetected); Mycoplasma Pneumoniae, PCR Not Detected (NotDetected); Parainfluenza 1, PCR Not Detected (NotDetected); Parainfluenza 2, PCR Not Detected (NotDetected); Parainfluenza 3, PCR Not Detected (NotDetected); Parainfluenza 4, PCR Not Detected (NotDetected); Respiratory Syncytial Virus Not Detected (NotDetected); Rhinovirus/Enterovirus Not Detected (NotDetected)
== END ==
PROVIDERS: Visit Provider Emergency Medicine
DX: J06.9 Acute upper respiratory infection, unspecified (principal); R06.02 Shortness of breath
CPT/HCPCS: 87581; 87632; 87798; C9803; U0003; U0005

== ENCOUNTER 2021-08-17 08:23 | Outpatient (CLI) | payer MEDICARE, SELFPAY ==
[2021-08-17 08:45] LABS: PHA INR Fingerstick 1.9 (0.9-1.1)
--- NOTE | 2021-08-23 13:42 | HMH.PHAINT ---
08/24/21 Spoke with pt concerning upcoming surgery on Monday08/30/21. Instructed pt to hold warfarin starting tomorrow (08/24/21) and hold until after surgery. Pt will get instructions from [facility] on day of surgery and agrees to call [facility] upon her return home post-op. Pt verbalized understanding. Geetha Quinonez PharmD [facility]
== END 2021-08-17 14:15 | disposition home or self-care (01) ==
PROVIDERS: PCP Emergency Medicine; Visit Provider Emergency Medicine
DX: Z51.81 Encounter for therapeutic drug level monitoring (principal); Z79.01 Long term (current) use of anticoagulants
CPT/HCPCS: 85610; 99211; G0463

== ENCOUNTER 2021-09-02 13:01 | Outpatient (CLI) | payer MEDICARE, SELFPAY ==
[2021-09-02 14:52] LABS: PHA INR Fingerstick 1.4 (0.9-1.1)
== END 2021-09-02 14:55 | disposition home or self-care (01) ==
LOC: ACC 13:02
PROVIDERS: PCP Emergency Medicine; Visit Provider Internal Medicine
DX: Z51.81 Encounter for therapeutic drug level monitoring (principal); Z79.01 Long term (current) use of anticoagulants
CPT/HCPCS: 85610; 99211; G0463

== ENCOUNTER 2021-09-07 13:01 | Outpatient (CLI) | payer MEDICARE, SELFPAY ==
[2021-09-07 14:14] LABS: PHA INR Fingerstick 3.9 (0.9-1.1)
== END 2021-09-07 14:15 | disposition home or self-care (01) ==
LOC: ACC 13:02
PROVIDERS: PCP Emergency Medicine; Visit Provider Emergency Medicine
DX: I82.509 Chronic embolism and thrombosis of unspecified deep veins of unspecified lower extremity (principal); Z79.01 Long term (current) use of anticoagulants
CPT/HCPCS: 85610; 99211; G0463

== ENCOUNTER 2021-10-13 09:43 | Outpatient (CLI) | payer MEDICARE, SELFPAY ==
[2021-10-13 15:07] LABS: PHA INR Fingerstick 1.3 (0.9-1.1)
== END 2021-10-13 15:18 | disposition home or self-care (01) ==
LOC: ACC 09:44
PROVIDERS: PCP Emergency Medicine; Visit Provider Emergency Medicine
DX: Z51.81 Encounter for therapeutic drug level monitoring (principal); Z79.01 Long term (current) use of anticoagulants
CPT/HCPCS: 85610; 99211; G0463

== ENCOUNTER → 2021-11-25 09:01 | Outpatient (CLI) | payer MEDICARE, SELFPAY ==
--- NOTE | 2021-11-25 09:01 | MR_ITS ---
FINAL REPORT CLINICAL HISTORY: back pain. PRIOR LUMBAR SURGERY 2001. LOW BACK AND LEFT LEG PAIN. COMPARISON: April 06, 2020 FINDINGS: Multiplanar MR imaging of the lumbar spine was performed without contrast. On the sagittal T2-weighted images, disc degeneration is seen throughout. There are endplate changes at multiple levels. There is leftward curvature. Several hemangiomas are noted. There is mild retrolisthesis of L2 on L3 and L3 on L4. There is no evidence of fracture. No bony mass is identified. The conus has an unremarkable appearance. No significant canal stenosis is identified. T10-11: An annular bulge is present. There is no significant canal stenosis or neural foraminal narrowing. T12-L1: There is no significant canal stenosis or neural foraminal narrowing. L1-2: There is an annular disc bulge with facet arthropathy and vertebral osteophytes. There is no significant canal stenosis. Mild right neural foraminal narrowing. L2-3: There is an annular disc bulge with facet arthropathy. There is no significant canal stenosis. Mild right neural foraminal narrowing. L3-4: There is an annular disc bulge with facet arthropathy and vertebral osteophytes. There is no significant canal stenosis. Moderate right and mild left neural foraminal narrowing. L4-5: There is an annular disc bulge with facet arthropathy and vertebral osteophytes. There is no significant canal stenosis. Mild left neural foraminal narrowing. Postoperative changes on the left are again noted. L5-S1: There is an annular disc bulge with facet arthropathy. There is no significant canal stenosis. Moderate left neural foraminal narrowing. IMPRESSION: Multilevel degenerative disc disease, spondylosis, and osteophytes as described. Several hemangiomas. Reviewed, Interpreted and Dictated by Anselmo Hirsch III, MD Transcribed by Alicia Vigil Authenticated and [facility]
== END ==
LOC: RAD 09:01
PROVIDERS: PCP Emergency Medicine; Visit Provider Emergency Medicine
DX: M54.50 Low back pain, unspecified (principal)
CPT/HCPCS: 72148; 76376

== ENCOUNTER → 2021-12-14 12:28 | Outpatient (CLI) | payer MEDICARE, SELFPAY ==
[2021-12-14 19:23] LABS: Amphetamine/Metha Screen,Urine Negative ng/ml (<1000); Benzodiazepines Screen,Urine Negative ng/ml (<200)
[2021-12-14 19:24] LABS: Barbiturates Screen,Urine Negative ng/ml (<200)
[2021-12-14 19:25] LABS: Cannabinoid Screen,Urine Negative ng/ml (<50); Cocaine Screen,Urine Negative ng/ml (<300)
[2021-12-14 19:26] LABS: Methadone Screen,Urine Negative ng/ml (<300); Opiate Screen,Urine Positive ng/ml (<300)
[2021-12-14 19:27] LABS: Phencyclidine Screen,Urine Negative ng/ml (<25)
== END ==
PROVIDERS: PCP Emergency Medicine; Visit Provider Emergency Medicine
DX: M51.36 Other intervertebral disc degeneration, lumbar region (principal)
CPT/HCPCS: 80305

== ENCOUNTER → 2022-01-24 14:11 | Outpatient (POV) | payer MEDICARE, SELFPAY ==
[2022-01-24 15:01] VITALS: BP 152/81; PULSE 84; RESP 20; TEMP 36.6; O2SAT 97; BMI 39.4
--- NOTE | 2022-01-24 15:16 | HMH.PMCON ---
Assessment and Plan (1) Lumbar radiculopathy Status: Acute Category: Medical Code(s): M54.16 - Radiculopathy, lumbar region (2) Left leg pain Status: Acute Category: Medical Code(s): M79.605 - Pain in left leg (3) DDD (degenerative disc disease), lumbar Status: Acute Category: Medical Code(s): M51.36 - Other intervertebral disc degeneration, lumbar region - Assessment and plan all Dx Assessment and Plan for all problems:: Patient is having significant pain along her lumbar spine that radiates down her left leg. Patient's lumbar MRI did show degenerative disc disease multilevels and spondylosis. Patient has tried and failed conservative therapy such as oral medications, topical creams, injective therapy, at home exercises and stretching for longer than 6 weeks. I have discussed with the patient regarding injective therapy however patient did not get any relief previously at her other pain clinic and is not interested at this time. I have discussed with her regarding trying physical therapy. Patient is agreeable to this option and I will order a referral to PT at today's visit. I will also order the patient a compounding cream. I did residential treatment counselor the patient regarding long-term treatment that she may be a candidate for a spinal cord stimulator. Educational handouts were given to the patient at today's visit. Patient is on warfarin due to a history of blood clots. We will follow-up with the patient in 1 month. Patient will return to clinic in 1 month for follow-up and reevaluation of symptoms. Patient has been instructed to contact the clinic with any concerns before the next appointment. Dr. Lutz has reviewed this note and agrees with this plan of care. This note was dictated using voice recognition software and make contain errors or omissions. HPI - Data of Consult Patient: new to practice Consult date: 01/24/22 Requesting Physician: Bernarda Reddy APRN Primary Care Provider: Chuy Stewart MD Family Provider: Dr. Stewart - Consult Narrative Reason for consult: Low back pain, left leg pain, generalized pain History of present illness: Ms. Brunner is a 61 year old female presents today as a new patient. She is a referral from Dr. Chuy Stewart. Patient states that she is having significant pain in her low back that radiates down into her left leg all the way to her foot. She states that this pain has worsened over the last several months since July. She states she is unable to walk long distances and has trouble doing ADLs. She states the pain is a constant, aching, throbbing sensation that is worse with increased activity. She states that she has been to a pain clinic in the past about [address] Del Valle. At that time she did multiple injective therapies however did not get significant relief with any of these. She states she was put on methadone however the doctor who prescribed the medication did end up getting into trouble and close the practice. She stopped taking the methadone cold and did end up having some blood clots. She is currently on warfarin. Patient states she has tried [id number] oral and topical medications with no relief as well as heat/ice. Patient does use a pillow for positioning between her knees when she sleeps to help give minimal relief of her symptoms. Patient has a significant health history including 4 back surgeries around L2-L3, L4-5. She also has a history of a right shoulder rotator cuff repair. She has had her left leg injured due to a horse falling on her. Recently she has had bilateral hip arthroplasty and she states that her incision sites are still draining. She is scheduled for a bilateral hip/pelvis CT on 01/28/2020. Patient has recent imaging of her lumbar spine. She is currently being managed with gabapentin 800 mg 3 times a day and Clymer 5 mg 4 times a day. These medications are written by Dr. Stewart. Patient also takes clonazepam 0.5 m
== END ==
PROVIDERS: PCP Emergency Medicine; Visit Provider Nurse Practitioner Family
DX: M51.16 Intervertebral disc disorders with radiculopathy, lumbar region (principal); M79.605 Pain in left leg
CPT/HCPCS: 99202; G0463

== ENCOUNTER → 2022-03-01 14:00 | Outpatient (CLI) | payer MEDICARE, SELFPAY ==
[2022-03-01 19:34] LABS: Barbiturates Screen,Urine Negative ng/ml (<200)
[2022-03-01 19:35] LABS: Amphetamine/Metha Screen,Urine Negative ng/ml (<1000); Benzodiazepines Screen,Urine Negative ng/ml (<200)
[2022-03-01 19:36] LABS: Cannabinoid Screen,Urine Negative ng/ml (<50); Cocaine Screen,Urine Negative ng/ml (<300)
[2022-03-01 19:37] LABS: Methadone Screen,Urine Negative ng/ml (<300)
[2022-03-01 19:38] LABS: Opiate Screen,Urine Positive ng/ml (<300); Phencyclidine Screen,Urine Negative ng/ml (<25)
== END ==
PROVIDERS: PCP Emergency Medicine; Visit Provider Emergency Medicine
DX: Z79.899 Other long term (current) drug therapy (principal)
CPT/HCPCS: 80305

== ENCOUNTER 2022-03-18 09:15 | Outpatient (CLI) | payer MEDICARE, SELFPAY | END 2022-03-18 16:14 | PROVIDERS: PCP Emergency Medicine; Visit Provider Emergency Medicine | DX: Z51.81 Encounter for therapeutic drug level monitoring (principal); Z79.01 Long term (current) use of anticoagulants | CPT/HCPCS: 85610; 99211; G0463 ==

== ENCOUNTER 2022-04-09 14:26 | Emergency (ER) | payer MEDICARE, SELFPAY ==
[2022-04-09 15:33] LABS: Apearance,Urine Clear (Clear); Bilirubin,Urine Negative (Negative); Blood, Urine 1+ (Negative); Color,Urine Yellow (Yellow); Glucose,Urine (UA) Negative (Negative); Ketones,Urine Negative (Negative); PH,Urine 5.5 (5.0-8.5); Protein,Urine Negative (Negative); UTC Leukocyte Esterase,Urine Negative (Negative); UTC Nitrate,Urine Negative (Negative); Urobilinogen,Urine 0.2 EU/dl (0.2)
--- NOTE | 2022-04-09 15:40 | EXP.UTC ---
Discharge Plan Disposition Patient Disposition: Home, Self-Care Condition: Good Prescriptions Prescriptions: New metronidazole 500 mg tablet 500 mg PO BID 10 Days Qty: 20 0RF cefdinir 300 mg capsule 300 mg PO BID 7 Days Qty: 14 0RF No Action warfarin 5 mg tablet See Rx Instructions .ROUTE .COMPLEX Dose Instruction: TAKE 1 TABLET DAILY EXCEPT ON MONDAY, MONDAY AND MONDAY TAKE 1 AND 1/2 TABLETS, OR DIRECTED BY COUMADIN CLINIC. Rx Instructions: . clonazepam 0.5 mg tablet 0.5 mg PO BID Qty: 60 1RF gabapentin 800 mg tablet 800 mg PO TID 90 Days Qty: 270 0RF hydrocodone-acetaminophen 7.5-325 mg tablet 1 tab PO QID Qty: 120 0RF atenolol 50 mg tablet See Rx Instructions .Route .COMPLEX Qty: 90 3RF Rx Instructions: TAKE 1 TABLET EVERY DAY cetirizine 10 mg tablet 10 mg PO DAILY Qty: 90 0RF nystatin 100,000 unit/mL suspension 1 ml PO DAILY Qty: 60 0RF Rx Instructions: swish and swallow escitalopram oxalate 20 mg tablet See Rx Instructions .ROUTE .COMPLEX Qty: 30 3RF Dose Instruction: TAKE ONE TABLET BY MOUTH ONCE A DAY Rx Instructions: TAKE ONE TABLET BY MOUTH ONCE A DAY benzonatate 100 mg capsule 100 mg PO TID PRN (Reason: cough) Qty: 30 0RF apxyrytpdchnsyb-[id number] [Bromfed DM] 2-30-10 mg/5 mL syrup 5 ml PO Q6H PRN (Reason: cold symptoms) Qty: 118 0RF furosemide 40 mg tablet See Rx Instructions .ROUTE .COMPLEX Qty: 90 0RF Dose Instruction: TAKE 1 TABLET EVERY DAY Rx Instructions: TAKE 1 TABLET EVERY DAY levothyroxine 50 mcg tablet See Rx Instructions .ROUTE .COMPLEX Qty: 90 0RF Dose Instruction: TAKE 1 TABLET EVERY DAY Rx Instructions: TAKE 1 TABLET EVERY DAY famotidine 20 MG tablet See Rx Instructions .Route .COMPLEX Rx Instructions: TAKE ONE TABLET BY MOUTH ONCE A DAY Referrals Follow up/Referrals: Chuy Stewart MD [Primary Care Provider] - See instructions Activity Restrictions/Add. Instructions Additional Instructions/Restrictions: Drink plenty of fluids. Take tylenol or ibuprofen for pain or fever. Take the medications as directed. Follow up with your regular doctor. GO TO THE ER FOR ANY WORSENING SYMPTOMS We will culture the urine. That will tell what bacteria is causing your infection and which antibiotics will treat it best. Sometimes the first antibiotic we prescribe turns out to not work against different bacteria. So, make sure you follow up within 3 days if you are not getting better. Clinical Impressions Clinical Impression: UTI (urinary tract infection) Instructions Patient Instructions: Urinary Tract Infection, DI for Urinary Tract Infection (UTI) Discharge ED Provider: Maxi Price [facility] General Stated complaint: Burning when urination Time Seen by Provider: 04/09/22 15:40 History of Present Illness Provider Complaint: She states that she has had dysuria, urinary frequency and low back pain for the past 2 days. Related Data Home Medications Medication Instructions Recorded Confirmed warfarin 5 mg tablet See Rx Instructions .Route 11/22/21 03/01/22 .COMPLEX dvt famotidine 20 mg tablet See Rx Instructions .Route 01/24/22 03/01/22 .COMPLEX GERD Previous Rx's Medication Instructions Recorded atenolol 50 mg tablet See Rx Instructions .Route 03/01/22 .COMPLEX htn #90 tabs clonazepam 0.5 mg tablet 0.5 mg PO BID . #60 tabs 03/01/22 gabapentin 800 mg tablet 800 mg PO TID Pain 90 days #270 03/01/22 tabs hydrocodone 7.5 mg-acetaminophen 1 tab PO QID Pain #120 tabs 03/01/22 325 mg tablet cetirizine 10 mg tablet 10 mg PO DAILY Allergy symptoms 03/08/22 #90 tabs nystatin 100,000 unit/mL oral 1 ml PO DAILY #60 mL 03/17/22 suspension escitalopram oxalate 20 mg tablet See Rx Instructions .Route 03/24/22 .COMPLEX #30 tabs benzonatate 100 mg capsule 100 mg PO TID PRN cough #
[2022-04-09 15:41] VITALS: BP 106/76; PULSE 85; RESP 18; TEMP 37; O2SAT 100; BMI 36.7
[2022-04-09 16:04] VITALS: BP 106/76; PULSE 85; RESP 18; TEMP 37
== END 2022-04-09 16:11 | disposition home or self-care (01) ==
PROVIDERS: Emergency Provider Nurse Practitioner Family; PCP Emergency Medicine
DX: N39.0 Urinary tract infection, site not specified (principal)
CPT/HCPCS: 81003; 87086; 99212; G0463

== ENCOUNTER → 2022-04-20 14:36 | Outpatient (CLI) | payer MEDICARE, SELFPAY ==
[2022-04-20 14:36] LABS: Basophils # 0.1 K/mm3 (0-0.2); Basophils % 1.6 % (0.1-2.0); Eosinophils # 0.3 K/mm3 (0.0-0.4); Eosinophils % 3.6 % (0.1-12.0); Hematocrit 43.9 % (37.0-47.0); Hemoglobin 13.4 g/dL (12.2-16.2); Lymphocytes % 25.9 % (10-50); Mean Corpuscular HGB Conc 30.5 g/dL (31.8-35.4); Mean Corpuscular Hemoglobin 29.6 pg (27.0-31.2); Mean Platelet Volume 10.4 fl (7.4-10.4); Monocytes # 0.4 K/mm3 (0.1-1.0); Monocytes % 5.5 % (1.7-9.3); Neutrophils % 63.4 % (37.0-80.0); Platelet Count 415 K/mm3 (142-424); Red Blood Count 4.53 M/mm3 (4.20-5.40); Red Cell Distribution Width 17.9 % (11.5-17.5); White Blood Count 7.9 K/mm3 (4.8-10.8)
[2022-04-20 14:39] LABS: Alanine Aminotransferase 21 U/L (12-78); Albumin Level 4.5 g/dl (3.5-5.0); Albumin/Globulin Ratio 1.6 (1.1-1.8); Alkaline Phosphatase 123 U/L (38-126); Anion Gap 15.8 mEq/L (5-15); Aspartate Amino Transferase 40 U/L (14-36); Bilirubin,Total 0.4 mg/dl (0.2-1.3); Blood Urea Nitrogen 25 mg/dl (7-17); Calcium 9.8 mg/dl (8.4-10.2); Carbon Dioxide 27 mmol/L (22.0-30.0); Chloride 101 mmol/L (98-107); Chol/HDL Ratio 3.9 (1-3.5); Cholesterol 206 mg/dl (140-200); Estimated Glomerular Filt Rate 50 ml/min (>60); GFR (African American) 61 ML/MIN (>60); Globulin 2.8 g/dL (1.3-3.2); Glucose 96 mg/dl (74-100); HDL Cholesterol 53 mg/dl (40-60); Potassium 4.8 mmoL/L (3.5-5.1); Sodium 139 mmol/L (136-145); Total Protein,Serum 7.3 g/dl (6.3-8.2); Triglycerides 171 mg/dl (30-150); VLDL Cholesterol 34 mg/dL (0-40)
[2022-04-20 14:41] LABS: Barbiturates Screen,Urine Negative ng/ml (<200)
[2022-04-20 14:42] LABS: Benzodiazepines Screen,Urine Negative ng/ml (<200)
[2022-04-20 14:43] LABS: Amphetamine/Metha Screen,Urine Negative ng/ml (<1000); Cannabinoid Screen,Urine Negative ng/ml (<50)
[2022-04-20 14:44] LABS: Cocaine Screen,Urine Negative ng/ml (<300)
[2022-04-20 14:45] LABS: Methadone Screen,Urine Negative ng/ml (<300)
[2022-04-20 14:46] LABS: Opiate Screen,Urine Positive ng/ml (<300)
[2022-04-20 14:47] LABS: Phencyclidine Screen,Urine Negative ng/ml (<25)
[2022-04-20 14:56] LABS: 25-OH Vitamin D, Total 39.9 ng/mL (30-100); Free T4 (Free Thyroxine) 1.29 ng/dl (0.78-2.19)
[2022-04-20 15:10] LABS: Thyroid Stimulating Hormone 1.46 uIU/mL (0.465-4.68)
== END ==
PROVIDERS: PCP Emergency Medicine; Visit Provider Emergency Medicine
DX: E66.9 Obesity, unspecified (principal); Z79.899 Other long term (current) drug therapy; R10.9 Unspecified abdominal pain; E55.9 Vitamin D deficiency, unspecified; Z68.39 Body mass index [BMI] 39.0-39.9, adult
CPT/HCPCS: 80053; 80061; 80305; 82306; 84439; 84443; 85025; 87086

== ENCOUNTER → 2022-05-02 08:25 | Outpatient (CLI) | payer MEDICARE, SELFPAY ==
--- NOTE | 2022-05-02 08:26 | CT_ITS ---
FINAL REPORT TECHNIQUE: Axial images through the abdomen and pelvis were performed without contrast.This study was performed with techniques to keep radiation doses as low as reasonably achievable, (ALARA). Individualized dose reduction techniques using automated exposure control or adjustment of mA and/or kV according to the patient's size were employed. CLINICAL HISTORY: kidney stone. recent infection causing stomach pain FINDINGS: ABDOMEN: The lung bases are clear. The heart size is normal. Limited images of the liver and gallbladder are unremarkable. The spleen is normal. No adrenal mass is identified. The aorta is normal in caliber. There is no significant free fluid or adenopathy. There is no nephrolithiasis. There is no hydronephrosis. There are postoperative changes of gastric bypass. A right-sided ileostomy is present. PELVIS: There are postoperative changes. Although, streak artifact severely obscures the lower pelvis. The appendix is not identified and presumably surgically absent. The urinary bladder is unremarkable. There is no significant free fluid or adenopathy. IMPRESSION: No urinary tract stone disease or obstruction. No bowel obstruction. Reviewed, Interpreted and Dictated by Rodolfo Alex MD Transcribed by Charlotte Bhagat Authenticated and [facility]
== END ==
LOC: RAD 08:26
PROVIDERS: PCP Emergency Medicine; Visit Provider Emergency Medicine
DX: N20.0 Calculus of kidney (principal)
CPT/HCPCS: 74176

== ENCOUNTER 2022-05-03 10:48 | Outpatient (CLI) | payer MEDICARE, SELFPAY ==
[2022-05-03 16:05] LABS: PHA INR Fingerstick 1.6 (0.9-1.1)
== END 2022-05-03 16:07 ==
PROVIDERS: PCP Emergency Medicine; Visit Provider Emergency Medicine
DX: Z79.01 Long term (current) use of anticoagulants (principal)
CPT/HCPCS: 85610; 99211; G0463

== ENCOUNTER → 2022-05-03 15:30 | Outpatient (CLI) | payer MEDICARE, SELFPAY | PROVIDERS: PCP Emergency Medicine; Visit Provider Emergency Medicine | DX: R53.83 Other fatigue (principal); Z51.81 Encounter for therapeutic drug level monitoring; Z79.01 Long term (current) use of anticoagulants | CPT/HCPCS: 85610; 87086; 99211; G0463 ==

== ENCOUNTER → 2022-05-13 15:26 | Outpatient (CLI) | payer MEDICARE, SELFPAY ==
--- NOTE | 2022-05-13 15:26 | MM_ITS ---
PROCEDURE INFORMATION: Exam: MG Bilateral Screening 3D Mammography Exam date and time: 05/13/2022 3:32 PM Age: 61 years old Clinical indication: Screening examination TECHNIQUE: Imaging protocol: Bilateral Screening tomosynthesis and 2D mammography including computer-aided detection (CAD) when performed. COMPARISON: 1. MG SCBI MM Dig screening mamm BI w/CAD 03/05/2018 10:37 AM 2. MG DMSB DIG MAMM-SCREEN GREGORY W/CAD 11/24/2016 8:35 AM 3. MG DIGMAMMS MAMMOGRAM SCREEN-JOB PRESS FEEDER N/C 08/09/2006 11:13 AM 4. MG DIGMAMMS MAMMOGRAM SCREEN-JOB PRESS FEEDER N/C 09/01/2004 11:13 AM FINDINGS: MAMMOGRAPHY: Breast composition: There are scattered areas of fibroglandular density. Mass: None. Architectural distortion: No new or suspicious architectural distortion. Calcifications: No new or suspicious calcifications are present Asymmetric density: No new or suspicious asymmetric density is present Skin thickening: None. Axillary adenopathy: None. IMPRESSION: No mammographic evidence of malignancy. Recommend annual screening mammography unless otherwise clinically indicated. ASSESSMENT: BI-RADS category 1: Negative
== END ==
PROVIDERS: PCP Emergency Medicine; Visit Provider Emergency Medicine
DX: Z12.31 Encounter for screening mammogram for malignant neoplasm of breast (principal)
CPT/HCPCS: 77063; 77067

== ENCOUNTER → 2022-06-17 16:36 | Outpatient (CLI) | payer MEDICARE, SELFPAY ==
[2022-06-17 14:15] LABS: Benzodiazepines Screen,Urine Negative ng/ml (<200)
[2022-06-17 14:16] LABS: Amphetamine/Metha Screen,Urine Negative ng/ml (<1000)
[2022-06-17 14:17] LABS: Barbiturates Screen,Urine Negative ng/ml (<200); Cannabinoid Screen,Urine Negative ng/ml (<50)
[2022-06-17 14:18] LABS: Cocaine Screen,Urine Negative ng/ml (<300)
[2022-06-17 14:19] LABS: Methadone Screen,Urine Negative ng/ml (<300); Opiate Screen,Urine Positive ng/ml (<300)
[2022-06-17 14:20] LABS: Phencyclidine Screen,Urine Negative ng/ml (<25)
== END ==
PROVIDERS: PCP Emergency Medicine; Visit Provider Emergency Medicine
DX: M54.16 Radiculopathy, lumbar region (principal)
CPT/HCPCS: 80305

== ENCOUNTER 2022-07-01 10:36 | Outpatient (CLI) | payer MEDICARE, SELFPAY ==
[2022-07-01 11:42] LABS: PHA INR Fingerstick 1.6 (0.9-1.1)
== END 2022-07-01 15:27 ==
LOC: ACC 10:37
PROVIDERS: PCP Emergency Medicine; Visit Provider Emergency Medicine
DX: Z51.81 Encounter for therapeutic drug level monitoring (principal); Z79.01 Long term (current) use of anticoagulants
CPT/HCPCS: 85610; 99211; G0463

== ENCOUNTER → 2022-07-08 10:29 | Outpatient (CLI) | payer MEDICARE, SELFPAY ==
--- NOTE | 2022-07-08 10:58 | XR_ITS ---
FINAL REPORT CLINICAL HISTORY: COUGH COMPARISON: 02/13/2021 FINDINGS: Two views of the chest were obtained. The heart size and pulmonary vascularity are within normal limits. The mediastinum is normal. No acute pulmonary abnormality is identified. There is no pneumothorax. The bony thorax is intact. IMPRESSION: No active cardiopulmonary disease. Reviewed, Interpreted and Dictated by Anselmo Hirsch III, MD Transcribed by Alicia Vigil Authenticated and [facility]
[2022-07-08 12:03] LABS: Basophils # 0.1 K/mm3 (0-0.2); Basophils % 1.5 % (0.1-2.0); Eosinophils # 0.3 K/mm3 (0.0-0.4); Eosinophils % 3.5 % (0.1-12.0); Hematocrit 44.5 % (37.0-47.0); Hemoglobin 14.1 g/dL (12.2-16.2); Lymphocytes # 1.7 K/mm3 (0.7-4.5); Mean Corpuscular HGB Conc 31.6 g/dL (31.8-35.4); Mean Corpuscular Hemoglobin 29.9 pg (27.0-31.2); Mean Corpuscular Volume 94.7 fl (81-99); Mean Platelet Volume 9.5 fl (7.4-10.4); Monocytes # 0.4 K/mm3 (0.1-1.0); Monocytes % 5.4 % (1.7-9.3); Neutrophils # 5.5 K/mm3 (1.8-7.8); Neutrophils % 68.8 % (37.0-80.0); Platelet Count 341 K/mm3 (142-424); Red Blood Count 4.69 M/mm3 (4.20-5.40); Red Cell Distribution Width 15.5 % (11.5-17.5)
[2022-07-08 12:27] LABS: Anion Gap 12.3 mEq/L (5-15); Blood Urea Nitrogen 25 mg/dl (7-17); Calcium 9.5 mg/dl (8.4-10.2); Carbon Dioxide 28 mmol/L (22.0-30.0); Chloride 106 mmol/L (98-107); Estimated Glomerular Filt Rate 46 ml/min (>60); GFR (African American) 55 ML/MIN (>60); Glucose 83 mg/dl (74-100); Potassium 5.3 mmoL/L (3.5-5.1); Sodium 141 mmol/L (136-145)
[2022-07-08 12:32] LABS: INR 1.74 (0.9-1.1); Prothrombin Time 18.2 seconds (10.1-12.5)
[2022-07-08 12:34] LABS: Erythrocyte Sedimentation Rate 25 mm/hr (0-30)
[2022-07-08 17:34] LABS: Hemoglobin A1C 6.1 % (4.0-6.0)
== END ==
PROVIDERS: PCP Emergency Medicine; Visit Provider Orthopaedic Surgery
DX: Z01.818 Encounter for other preprocedural examination (principal); R06.02 Shortness of breath; R73.09 Other abnormal glucose; Z51.81 Encounter for therapeutic drug level monitoring; Z79.01 Long term (current) use of anticoagulants; Z87.898 Personal history of other specified conditions
CPT/HCPCS: 36415; 71046; 80048; 83036; 85025; 85610; 85651

== ENCOUNTER 2022-07-22 08:43 | Outpatient (CLI) | payer MEDICARE, SELFPAY ==
[2022-07-22 09:14] LABS: PHA INR Fingerstick 1.9 (0.9-1.1)
== END 2022-07-22 09:16 ==
LOC: ACC 08:44
PROVIDERS: PCP Emergency Medicine; Visit Provider Emergency Medicine
DX: R82.90 Unspecified abnormal findings in urine (principal); Z51.81 Encounter for therapeutic drug level monitoring; Z79.01 Long term (current) use of anticoagulants; B96.29 Other Escherichia coli [E. coli] as the cause of diseases classified elsewhere
CPT/HCPCS: 85610; 87086; 87088; 87186; 99211; G0463

== ENCOUNTER → 2022-08-03 15:52 | Outpatient (CLI) | payer MEDICARE, SELFPAY ==
[2022-08-03 16:38] LABS: Amphetamine/Metha Screen,Urine Negative ng/ml (<1000)
[2022-08-03 16:39] LABS: Barbiturates Screen,Urine Negative ng/ml (<200); Benzodiazepines Screen,Urine Negative ng/ml (<200)
[2022-08-03 16:40] LABS: Cannabinoid Screen,Urine Negative ng/ml (<50)
[2022-08-03 16:41] LABS: Cocaine Screen,Urine Negative ng/ml (<300); Methadone Screen,Urine Negative ng/ml (<300)
[2022-08-03 16:42] LABS: Opiate Screen,Urine Positive ng/ml (<300)
[2022-08-03 17:03] LABS: Phencyclidine Screen,Urine Negative ng/ml (<25)
== END ==
PROVIDERS: PCP Emergency Medicine; Visit Provider Emergency Medicine
DX: R40.0 Somnolence (principal); Z79.899 Other long term (current) drug therapy
CPT/HCPCS: 80305

== ENCOUNTER → 2022-09-28 06:26 | Outpatient (CLI) | payer MEDICARE, SELFPAY ==
[2022-09-28 20:11] LABS: Barbiturates Screen,Urine Negative ng/ml (<200)
[2022-09-28 20:13] LABS: Benzodiazepines Screen,Urine Negative ng/ml (<200); Cannabinoid Screen,Urine Negative ng/ml (<50)
[2022-09-28 20:14] LABS: Cocaine Screen,Urine Negative ng/ml (<300); Methadone Screen,Urine Negative ng/ml (<300)
[2022-09-28 20:15] LABS: Opiate Screen,Urine Positive ng/ml (<300)
[2022-09-28 20:16] LABS: Phencyclidine Screen,Urine Negative ng/ml (<25)
[2022-09-28 20:21] LABS: Amphetamine/Metha Screen,Urine Negative ng/ml (<1000)
== END ==
PROVIDERS: PCP Emergency Medicine; Visit Provider Emergency Medicine
DX: R40.0 Somnolence (principal); Z79.899 Other long term (current) drug therapy
CPT/HCPCS: 80305

== ENCOUNTER → 2022-10-12 16:50 | Outpatient (CLI) | payer MEDICARE, SELFPAY | PROVIDERS: PCP Emergency Medicine; Visit Provider Emergency Medicine | DX: R82.90 Unspecified abnormal findings in urine (principal) | CPT/HCPCS: 87086 ==

== ENCOUNTER 2022-10-17 11:08 | Emergency (ER) | payer MEDICARE, SELFPAY ==
[2022-10-17 11:09] VITALS: BP 115/63; PULSE 82; RESP 16; TEMP 36.7; O2SAT 98; BMI 34.5
--- NOTE | 2022-10-17 11:24 | HMH.EDGENADL ---
Discharge Plan Disposition Patient Disposition: Home, Self-Care Prescriptions Prescriptions: No Action clonazepam 0.5 mg tablet 0.5 mg PO BID Qty: 60 1RF gabapentin 800 mg tablet 800 mg PO TID 90 Days Qty: 270 0RF hydrocodone-acetaminophen 10-325 mg tablet 1 tab PO QID Qty: 120 0RF atenolol 50 mg tablet See Rx Instructions .Route .COMPLEX Qty: 90 3RF Rx Instructions: TAKE 1 TABLET EVERY DAY famotidine 20 mg tablet See Rx Instructions .ROUTE .COMPLEX Qty: 180 0RF Dose Instruction: TAKE 2 TABLETS AT BEDTIME NIGHTLY FOR GERD Rx Instructions: TAKE 2 TABLETS AT BEDTIME NIGHTLY FOR GERD warfarin 5 mg tablet See Rx Instructions .ROUTE .COMPLEX Qty: 90 0RF Dose Instruction: TAKE 1 TABLET EVERY DAY FOR DVT; OR DIRECTED Rx Instructions: TAKE 1 TABLET EVERY DAY FOR DVT; OR DIRECTED furosemide 40 mg tablet See Rx Instructions .ROUTE .COMPLEX Qty: 90 0RF Dose Instruction: TAKE 1 TABLET EVERY DAY Rx Instructions: TAKE 1 TABLET EVERY DAY levothyroxine 50 mcg tablet See Rx Instructions .ROUTE .COMPLEX Qty: 90 0RF Dose Instruction: TAKE 1 TABLET EVERY DAY Rx Instructions: TAKE 1 TABLET EVERY DAY nitrofurantoin macrocrystal 100 mg capsule 100 mg PO BID 10 Days Qty: 20 0RF Rx Instructions: must administer with a meal/food Referrals Follow up/Referrals: Chuy Stewart MD [Primary Care Provider] - See instructions Activity Restrictions/Add. Instructions Additional Instructions/Restrictions: Your evaluation for your abdominal pain and back pain today was unremarkable for emergency standpoint and remains diagnostic uncertainty. Please return to your primary care doctor and return to the emergency department if your symptoms have significant worsened in 12 to 24 hours. Of note there was an incidental pulmonary nodule that was noted on your CT scan and a recommended CT scan in 6 months for follow-up was noted by the radiologist. Please discuss this further with your primary care doctor as well. 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 States that it is constant in nature but intermittently gets better and worse and is similar to pain that she had in the past with kidney stones. She states she had no changes in her bowel movements. She has not had any blood in her urine that she is aware of. No fevers or chills. Given her history of FAP she is concerned about malignancy. She had no symptoms prior to 1-1/2 weeks ago. Related Data Previous Rx's Medication Instructions Recorded atenolol 50 mg tablet See Rx Instructions .Route 03/01/22 .COMPLEX htn #90 tabs famotidine 20 mg tablet See Rx Instructions .Route 09/01/22 .COMPLEX #180 tabs warfarin 5 mg tablet See Rx Instructions .Route 09/01/22 .COMPLEX #90 tabs furosemide 40 mg tablet See Rx Instructions .Route 09/06/22 .COMPLEX #90 tabs levothyroxine 50 mcg tablet See Rx Instructions .Route 09/06/22 .COMPLEX #90 tabs clonazepam 0.5 mg tablet 0.5 mg PO BID . #60 tabs 09/28/22 gabapentin 800 mg tablet 800 mg PO TID Pain 90 days #270 09/28/22 tabs hydrocodone 10 mg-acetaminophen 1 tab PO QID #120 tabs 09/28/22 325 mg tablet nitrofurantoin macrocrystal 100 mg 100 mg PO BID 10 days #20 caps 10/06/22 capsule Allergies Allergy/AdvReac Type Severity Reaction Status Date / Time eryth
[2022-10-17 11:27] LABS: Microscopic, Urine URINE MICROSCOPIC (MICROSCOPIC)
[2022-10-17 11:28] LABS: Appearance,Urine CLEAR (Clear); Bilirubin,Urine Negative (Negative); Blood, Urine 1+ (Negative); Color,Urine YELLOW (Yellow); Glucose,Urine (UA) Negative (Negative); Ketones,Urine Negative (Negative); Leukocyte Esterase,Urine Negative (Negative); Nitrate,Urine Negative (Negative); Protein,Urine Negative (Negative); Urobilinogen,Urine 0.2 EU/dl (0.2)
--- NOTE | 2022-10-17 11:36 | CT_ITS ---
FINAL REPORT CLINICAL HISTORY: LUQ, LLQ abd pain COMPARISON: April 2022 FINDINGS: CT OF THE ABDOMEN AND PELVIS WITH CONTRAST Axial CT images of the abdomen and pelvis were obtained after the administration of intravenous contrast. Coronal reformatted images were also obtained and reviewed.This study was performed with techniques to keep radiation doses as low as reasonably achievable (ALARA). Individualized dose reduction techniques using automated exposure control or adjustment of mA and/or kV according to the patient's size were employed. Abdomen: There is a 6 mm nodule in the lateral left lung base that is new or larger from prior. There is mild bibasilar atelectasis.. The heart is normal in size. The liver has an unremarkable appearance, without evidence of mass or biliary ductal dilatation. There is probable wall thickening of the fundus of the gallbladder that could be inflammatory or neoplastic. This could possibly also represent stones. There are postoperative changes from gastric bypass. The spleen is unremarkable. Mild bilateral adrenal gland enlargement could represent adenomas or hyperplasia. The pancreas has an unremarkable appearance. There is left renal cortical thinning. The aorta is normal in caliber. There is no free fluid or adenopathy. No mass or abnormal fluid collection is seen. Pelvis: There are bilateral hip arthroplasties with streak artifact. The appendix is not well-visualized. Postoperative changes are seen in the pelvis. There is a right pelvic ostomy. The urinary bladder is unremarkable. No inflammatory process is seen. There is no evidence of mass or adenopathy. There is no evidence of bowel obstruction. IMPRESSION: 6 mm lateral left lung base nodule is new or increased in size from prior. Recommend six-month follow-up chest CT. Probable wall thickening of the fundus of the gallbladder could be inflammatory or neoplastic. This could possibly also represent gallstones. This could be further evaluated with right upper quadrant ultrasound. Reviewed, Interpreted and Dictated by Anselmo Hirsch III, MD Transcribed by Vinay Gonzalez Authenticated and [facility]
[2022-10-17 11:48] LABS: Bacteria,Urine Trace /lpf; Hyaline Casts,Urine Occasional #/lpf (0); RBC,Urine Occasional #/hpf (0-3); Squamous Epithelial Cell,Urine Occasional #/hpf (0-5)
[2022-10-17 11:56] LABS: Basophils # 0.1 K/mm3 (0-0.2); Basophils % 0.8 % (0.1-2.0); Eosinophils # 0.3 K/mm3 (0.0-0.4); Eosinophils % 3.8 % (0.1-12.0); Hematocrit 42.9 % (37.0-47.0); Hemoglobin 13.5 g/dL (12.2-16.2); Lymphocytes # 1.6 K/mm3 (0.7-4.5); Lymphocytes % 20.3 % (10-50); Mean Corpuscular HGB Conc 31.5 g/dL (31.8-35.4); Mean Corpuscular Hemoglobin 30.2 pg (27.0-31.2); Mean Corpuscular Volume 95.8 fl (81-99); Mean Platelet Volume 9.1 fl (7.4-10.4); Monocytes # 0.4 K/mm3 (0.1-1.0); Monocytes % 4.7 % (1.7-9.3); Neutrophils # 5.6 K/mm3 (1.8-7.8); Neutrophils % 70.4 % (37.0-80.0); Platelet Count 294 K/mm3 (142-424); Red Blood Count 4.48 M/mm3 (4.20-5.40); Red Cell Distribution Width 14.1 % (11.5-17.5)
[2022-10-17 12:00] LABS: Alanine Aminotransferase 27 U/L (12-78); Albumin Level 4.1 g/dl (3.5-5.0); Albumin/Globulin Ratio 1.4 (1.1-1.8); Alkaline Phosphatase 88 U/L (38-126); Anion Gap 14.7 mEq/L (5-15); Aspartate Amino Transferase 34 U/L (14-36); Bilirubin,Total 0.4 mg/dl (0.2-1.3); Blood Urea Nitrogen 22 mg/dl (7-17); Calcium 9.1 mg/dl (8.4-10.2); Carbon Dioxide 28 mmol/L (22.0-30.0); Chloride 99 mmol/L (98-107); Creatinine Clearance Estimated 72 mL/min (50-200); Estimated Glomerular Filt Rate 50 ml/min (>60); GFR (African American) 61 ML/MIN (>60); Glucose 106 mg/dl (74-100); Lactic Acid 1.2 mmol/L (0.7-2.1); Lipase 201 U/L (23-300); Potassium 4.7 mmoL/L (3.5-5.1); Sodium 137 mmol/L (136-145); Total Protein,Serum 7.1 g/dl (6.3-8.2)
[2022-10-17 12:06] LABS: INR 1.42 (0.9-1.1)
[2022-10-17 12:07] VITALS: BP 123/65; PULSE 73; O2SAT 98
--- NOTE | 2022-10-17 12:52 | PC.NURSE ---
waiting director of education and training back from Ct to check to see if any preliminary results
--- NOTE | 2022-10-17 13:30 | PC.NURSE ---
rad staff reports ct scans appears to be next in line to be read
[2022-10-17 14:11] VITALS: BP 99/45; PULSE 69; O2SAT 100
--- NOTE | 2022-10-17 14:11 | PC.NURSE ---
rounded on pt at this time. no needs voiced.
--- NOTE | 2022-10-17 14:44 | PC.NURSE ---
ER notified pt ct scan is resulted
--- NOTE | 2022-10-17 14:53 | PC.NURSE ---
ER at discussing POC and test results
--- NOTE | 2022-10-17 15:05 | PC.NURSE ---
LUNCH TRAY GOTTEN FOR PATIENT
[2022-10-17 15:10] VITALS: BP 107/67; PULSE 81; RESP 20; TEMP 36.7; O2SAT 97
== END 2022-10-17 15:10 | disposition home or self-care (01) ==
PROVIDERS: Emergency Provider Student in an Organized Health Care Education/Training Program; PCP Emergency Medicine
DX: R10.9 Unspecified abdominal pain (principal); M54.9 Dorsalgia, unspecified; F17.210 Nicotine dependence, cigarettes, uncomplicated
CPT/HCPCS: 74177; 80053; 81001; 83605; 83690; 85025; 85610; 96361; 96374; 96375; 99285; J2405; Q9967

== ENCOUNTER → 2022-11-23 15:15 | Outpatient (CLI) | payer MEDICARE, SELFPAY ==
[2022-11-23 20:27] LABS: Amphetamine/Metha Screen,Urine Negative ng/ml (<1000)
[2022-11-23 20:28] LABS: Barbiturates Screen,Urine Negative ng/ml (<200); Benzodiazepines Screen,Urine Negative ng/ml (<200)
[2022-11-23 20:29] LABS: Cannabinoid Screen,Urine Negative ng/ml (<50)
[2022-11-23 20:30] LABS: Cocaine Screen,Urine Negative ng/ml (<300); Methadone Screen,Urine Negative ng/ml (<300)
[2022-11-23 20:31] LABS: Opiate Screen,Urine Positive ng/ml (<300)
[2022-11-23 20:32] LABS: Phencyclidine Screen,Urine Negative ng/ml (<25)
== END ==
PROVIDERS: PCP Emergency Medicine; Visit Provider Emergency Medicine
DX: R40.0 Somnolence (principal); Z79.899 Other long term (current) drug therapy
CPT/HCPCS: 80305

== ENCOUNTER 2022-11-25 13:35 | Outpatient (CLI) | payer MEDICARE, SELFPAY ==
[2022-11-25 14:49] LABS: PHA INR Fingerstick 1.7 (0.9-1.1)
== END 2022-11-25 15:06 ==
LOC: ACC 13:36
PROVIDERS: PCP Emergency Medicine; Visit Provider Emergency Medicine
DX: Z51.81 Encounter for therapeutic drug level monitoring (principal); Z79.01 Long term (current) use of anticoagulants
CPT/HCPCS: 85610; 99211; G0463

== ENCOUNTER → 2022-12-02 13:43 | Outpatient (CLI) | payer MEDICARE, OTHER, SELFPAY ==
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
== END ==
LOC: RAD 13:44
PROVIDERS: PCP Emergency Medicine; Visit Provider Emergency Medicine
DX: V89.2XXA Person injured in unspecified motor-vehicle accident, traffic, initial encounter (principal); R07.89 Other chest pain; M25.511 Pain in right shoulder; R10.2 Pelvic and perineal pain
CPT/HCPCS: 71046; 71101; 72170; 73030

== ENCOUNTER → 2022-12-14 13:51 | Outpatient (CLI) | payer MEDICARE, SELFPAY ==
--- NOTE | 2022-12-14 14:13 | CA_ITS ---
FINAL REPORT TECHNIQUE: Multiple transverse and longitudinal images were performed of the right femoral-popliteal deep venous system with augmentation and compression maneuvers. CLINICAL HISTORY: pain and edema RLE COMPARISON: None FINDINGS: Right lower extremity duplex ultrasound demonstrates normal flow in the deep venous system. There is no abnormal echogenicity to suggest thrombus. There is normal compression and augmentation. IMPRESSION: No evidence of right DVT. Reviewed, Interpreted and Dictated by Anselmo Hirsch III, MD Transcribed by Alicia Vigil Authenticated and . [facility]
== END ==
PROVIDERS: PCP Physician Assistant; Visit Provider Physician Assistant
DX: M79.661 Pain in right lower leg (principal); M79.89 Other specified soft tissue disorders
CPT/HCPCS: 93971

== ENCOUNTER → 2023-01-19 16:30 | Outpatient (CLI) | payer MEDICARE, SELFPAY ==
[2023-01-19 14:39] LABS: Amphetamine/Metha Screen,Urine Negative ng/ml (<1000); Barbiturates Screen,Urine Negative ng/ml (<200)
[2023-01-19 14:41] LABS: Benzodiazepines Screen,Urine Negative ng/ml (<200); Cannabinoid Screen,Urine Negative ng/ml (<50)
[2023-01-19 14:42] LABS: Cocaine Screen,Urine Negative ng/ml (<300); Methadone Screen,Urine Negative ng/ml (<300)
[2023-01-19 14:43] LABS: Opiate Screen,Urine Positive ng/ml (<300)
[2023-01-19 14:44] LABS: Phencyclidine Screen,Urine Negative ng/ml (<25)
== END ==
PROVIDERS: PCP Emergency Medicine; Visit Provider Emergency Medicine
DX: R40.0 Somnolence (principal); Z79.899 Other long term (current) drug therapy
CPT/HCPCS: 80305

== ENCOUNTER → 2023-03-10 21:17 | Outpatient (CLI) | payer MEDICARE, SELFPAY ==
[2023-03-10 17:32] LABS: Amphetamine/Metha Screen,Urine Negative ng/ml (<1000)
[2023-03-10 17:33] LABS: Barbiturates Screen,Urine Negative ng/ml (<200)
[2023-03-10 17:35] LABS: Benzodiazepines Screen,Urine Negative ng/ml (<200); Cannabinoid Screen,Urine Positive ng/ml (<50)
[2023-03-10 17:36] LABS: Cocaine Screen,Urine Negative ng/ml (<300)
[2023-03-10 17:37] LABS: Methadone Screen,Urine Negative ng/ml (<300); Opiate Screen,Urine Positive ng/ml (<300)
[2023-03-10 17:38] LABS: Phencyclidine Screen,Urine Negative ng/ml (<25)
== END ==
PROVIDERS: PCP Emergency Medicine; Visit Provider Emergency Medicine
DX: M54.9 Dorsalgia, unspecified (principal); R40.0 Somnolence
CPT/HCPCS: 80305

== ENCOUNTER 2023-03-27 10:34 | Outpatient (CLI) | payer MEDICARE, SELFPAY ==
[2023-03-27 12:51] LABS: PHA INR Fingerstick 2.4 (0.9-1.1)
== END 2023-03-27 14:43 ==
LOC: ACC 10:35
PROVIDERS: PCP Emergency Medicine; Visit Provider Emergency Medicine
DX: Z79.01 Long term (current) use of anticoagulants (principal); Z51.81 Encounter for therapeutic drug level monitoring
CPT/HCPCS: 85610; 99211; G0463

== ENCOUNTER → 2023-05-08 23:51 | Outpatient (CLI) | payer MEDICARE, SELFPAY ==
[2023-05-08 19:20] LABS: Alanine Aminotransferase 22 U/L (12-78); Albumin Level 4.3 g/dl (3.5-5.0); Albumin/Globulin Ratio 1.3 (1.1-1.8); Alkaline Phosphatase 85 U/L (38-126); Anion Gap 10.4 mEq/L (5-15); Aspartate Amino Transferase 33 U/L (14-36); Bilirubin,Total 0.5 mg/dl (0.2-1.3); Blood Urea Nitrogen 24 mg/dl (7-17); Calcium 9.4 mg/dl (8.4-10.2); Carbon Dioxide 28 mmol/L (22.0-30.0); Chloride 103 mmol/L (98-107); Estimated Glomerular Filt Rate 46 ml/min (>60); GFR (African American) 55 ML/MIN (>60); Globulin 3.3 g/dL (1.3-3.2); Glucose 91 mg/dl (74-100); Potassium 4.4 mmoL/L (3.5-5.1); Sodium 137 mmol/L (136-145); Total Protein,Serum 7.6 g/dl (6.3-8.2)
[2023-05-08 19:44] LABS: Thyroid Stimulating Hormone 0.34 uIU/mL (0.465-4.68)
== END ==
PROVIDERS: PCP Internal Medicine; Visit Provider Internal Medicine
DX: R53.83 Other fatigue (principal)
CPT/HCPCS: 80053; 84443

== ENCOUNTER → 2023-05-30 06:47 | Outpatient (CLI) | payer MEDICARE, SELFPAY ==
--- NOTE | 2023-05-30 | CA_ITS ---
APPROVED REPORT Exam: Pharmacologic Technologist: Jayda Longo, Ht: 5 ft 2 in Wt: 187 lbs BSA: 1.86 m2 HR: 63 bpm BP: 107/63 mmHg Rhythm: NSR Medical History Medications: Levothyroxine,,,,, Warfarin,,,,, Atenolol,,,,, Gabapentin,,,,, Famotidine,,,,, ClonAZapam,,,,, Furosemide,,,,, Hyrdrocodone acetaminophen,,,,, Cardiac Risk Factors: HTN, FHX of CAD, Smoking Stress Test Details Test: LEXISCAN HR Resting HR: 69 bpm Max Heart Rate (APMHR): 158 bpm Max HR Achieved: 90 bpm Target HR (85% APMHR): 134 bpm % of APMHR: 57 Recovery HR: 83 bpm BP Resting BP: 107/63 mmHg Max BP: 107/63 mmHg Recovery BP: 93.0/61.0 mmHg ECG Resting ECG: Normal sinus rhythm, diffuse T wave changes Stress ECG: No significant ST changes Arrhythmia: None Clinical Exercise duration: 04:01 min Highest Stage Achieved: Stress ECG Conclusion During lexiscan pt experinced dyspnea. No arrhythmias noted. No significant ST changes Conclusion: EKG portion of the test is unremarkable due to lexiscan infusion. Myoview images are reported separately. Test Summary REST . . . . . . . Sitting REST 02:05 . . 69 . 107/ 63 . . Stage 1 . . . . . . . Myoview Injected Stage 1 01:00 . . 75 . . . . Stage 2 01:00 . . 82 . . . . Stage 3 01:00 . . 80 . 77/ 50 . . Stage 4 01:00 . . 81 . . . . Stage 4 01:01 . . 81 . . . Stop exercise at 04:01 RECOVERY 01:00 . . 80 . 84/ 51 . . RECOVERY 02:00 . . 83 . 84/ 51 . . RECOVERY 03:00 . . 78 . 93/ 61 . . RECOVERY 03:27 . . 86 . 103/ 64 . . Electronically signed by : Radha Bland MD 05/30/2023 23:56:19
--- NOTE | 2023-05-30 06:48 | CA_ITS ---
APPROVED REPORT EXAM: Comprehensive 2D, Doppler, and color-flow Echocardiogram Pharmacy Operations Specialist: Abbi Clay CRT Ht: 5 ft 2 in Wt: 194lbs BSA: 1.89 BP: 137/80 mmHg Indications: Abnormal ECG, Pre-Op,KASSI, DVT, SOB 2D Dimensions Left Atrium 4.09 cm LVEF (De La Torre's) 58.20 % LVOT 2.07 cm (M/F) 1.5-2.5 LV Volume 71.70 mL LA Volume 43.90 mL LA Volume Index 23.20 mL/m2 (M/F) 16-34 EF AP4 63.60 % EF AP2 50.7 % EF BP 58.2 % GL Strain -21.0 % M-Mode Dimensions RVDd 2.68 cm (0.9-2.6) LVDd 4.78 cm (3.5-5.7) Ao Diam 3.69 cm (2.0-3.7) LVDs 3.21 cm (3.5-5.7) IVSd 1.39 cm (0.6-1.1) PWd 0.68 cm (0.6-1.1) EF (Teich) 61.20% FS 32.80% EDV (Teich) 106.50 mL TAPSE 1.94 (<1.7) ESV (Teich) 41.30 mL LV Diastology E Decel Time 158 (160-240 msec) E/A Ratio 1.23 MED E' 8.9 (>= 7 cm/sec) MED A' 5.70 cm/s E'/MED E' Ratio 6.98 (<= 14) LAT E' 10.2 (>= 10 cm/sec) LAT A' 7.30 cm/s E/LAT E' Ratio 6.09 (<= 14) Aortic Valve AoV Peak Dawson. 120.0 (50-130 cm/s) AI PHT 487.00 ms AO Peak GR. 5.80 mmHg Mitral Valve MV E Max Dawson. 62.0 (40-130 cm/s) MV A Velocity 50.0 (40-130 cm/s) E/A Ratio 1.23 MV Decel. Time 158 (160-240 ms) Tricuspid Valve TR P. Velocity 312.00 cm/s RAP Estimate 10.00 mmHg RVSP 49.00 mmHg Left Ventricle The left ventricle is normal size. The left ventricular systolic function is normal. The left ventricular ejection fraction is within the normal range. There is normal left ventricular wall thickness. There is normal LV segmental wall motion. Diastolic function is indeterminate. LVEF is 55%. Right Ventricle The right ventricle is normal size. The right ventricular systolic function is normal. Atria The left atrium is severely dilated. The right atrium is moderately dilated. There is no Doppler evidence of interatrial shunt. Aortic Valve The aortic valve opens well. There is no aortic valvular stenosis. Mild aortic regurgitation. Mitral Valve There is possible bileaflet prolapse of the mitral valve leaflets. No evidence of mitral valve stenosis. At least mild mitral regurgitation. The MR jet is eccentric and may be underestimated. Tricuspid Valve The tricuspid valve leaflets are thin and pliable. Trace tricuspid regurgitation. RVSP is 25-30 mmHg. Pulmonic Valve The pulmonary valve is normal in structure. Trace pulmonic regurgitation. Great Vessels The aortic root is normal in size. The ascending aorta is not well-visualized. IVC is normal in size and collapses >50% with inspiration. Pericardium There is no pericardial effusion. Other Information Study Quality: Fair Conclusion Normal biventricular systolic function. Possible bileaflet MV prolapse. Biatrial dilation. At least mild mitral regurgitation. The MR severity may be underestimated due to eccentric MR jet. If patient is symptomatic and if clinically indicated, further evaluation to assess accurately the severity of MR is recommended by NORMA. Electronically signed by : Radha Bland MD 05/30/2023 21:40:22
--- NOTE | 2023-05-30 06:50 | NM_ITS ---
APPROVED REPORT Exam: Nuclear Stress Test Indication: soa..fatigue Patient Location: Outpatient Stress Tech: Jayda MARTINEZ Tech:DENISE Bowens RT(R)(N) Ht: 5 ft 2 in Wt: 185 lbs Bra Size: 40dd HR: 69 bpm BP: 107/63 mmHg BSA: 1.85 m2 TID: 1.08 BMI: 33.8 History: soa..fatigue Procedure: Patient received 0.4 mg of intravenous Lexiscan, resting heart rate 69 bpm, resting blood pressure 107/63 mmHg, with Lexiscan maximum heart rate achieved was 90 bpm which is 85 % of the maximum predicted heart rate and blood pressure was 107/63 mmHg. With Lexiscan, patient denied any complaint of chest pain. The patient was not able to lie on her abdomen for prone images Cardiac Stress and Resting SPECT Images: Cardiac Stress and Resting SPECT images were obtained using technetium 99m Myoview 31.8 mCi stress and 10.36 mCi at rest. The patient could not lie on her abdomen. Therefore, prone stress imaging could not be performed. This may affect the diagnostic interpretation of the study findings. Resting and stress imaging and supine positions demonstrate a medium sized, moderate, predominantly fixed perfusion defect in the apical LV wall. There is a region of surrounding reversibility. Gated imaging demonstrates normal global LV systolic function. There is mild hypokinesis of the LV apex. LVEF is calculated at 54%. Conclusion: Medium sized, moderate, predominantly fixed perfusion defect in the apical LV wall. There is a region of surrounding reversibility. Findings are suggestive of partial reversible ischemia. Gated imaging demonstrates normal global LV systolic function. There is mild hypokinesis of the LV apex. LVEF is calculated at 54%. Electronically signed by : Radha Bland MD 05/30/2023 23:58:52
== END ==
LOC: RAD 06:48
PROVIDERS: PCP Internal Medicine; Visit Provider Nurse Practitioner
DX: I82.402 Acute embolism and thrombosis of unspecified deep veins of left lower extremity (principal); R06.00 Dyspnea, unspecified; R94.31 Abnormal electrocardiogram [ECG] [EKG]; G47.33 Obstructive sleep apnea (adult) (pediatric); F17.200 Nicotine dependence, unspecified, uncomplicated
CPT/HCPCS: 78452; 93017; 93018; 93306; A9502; J2785

== ENCOUNTER 2023-06-12 15:53 | Outpatient (CLI) | payer MEDICARE, SELFPAY ==
[2023-06-12 16:29] LABS: Amphetamine/Metha Screen,Urine Negative ng/ml (<1000); Barbiturates Screen,Urine Negative ng/ml (<200); Benzodiazepines Screen,Urine Negative ng/ml (<200); Cannabinoid Screen,Urine Negative ng/ml (<50); Cocaine Screen,Urine Negative ng/ml (<300); Methadone Screen,Urine Negative ng/ml (<300); Opiate Screen,Urine Positive ng/ml (<300); Phencyclidine Screen,Urine Negative ng/ml (<25)
== END 2023-06-12 23:59 ==
LOC: LAB.DROPOF 15:54
PROVIDERS: PCP Internal Medicine; Visit Provider Internal Medicine
DX: Z79.899 Other long term (current) drug therapy (principal)
CPT/HCPCS: 80307

== ENCOUNTER 2023-06-19 08:49 | Day surgery (SDC) | payer MEDICARE, SELFPAY ==
[2023-06-19] VITALS (12 sets, daily range): BP systolic 88–136; BP diastolic 47–85; PULSE 66–81; RESP 13–19; TEMP 36.4–36.6; O2SAT 95–96; BMI 35.1
--- NOTE | 2023-06-19 07:26 | IR_ITS ---
APPROVED REPORT Patient Location: Outpatient Ssis Ssrs Developer: DENISE Julio RT (R) PROCEDURES Left heart catheterization Left ventriculogram Selective coronary angiogram INDICATION Abnormal stress test, Angina pectoris Informed consent was obtained prior to the procedure. COMPLICATIONS NONE Estimated Blood Loss: LESS THAN 10 ML TECHNIQUE One percent lidocaine used to anesthetize the right anterior aspect of the wrist. The right radial artery was accessed via the Seldinger technique. A 6 Nigerien sheath was placed in the right radial artery. 2.5 mg of Verapamil, 800 mcg of nitroglycerin, 1mg Lidocaine and 5000 U Heparin were given through the arterial sheath. The papa catheter was also used to perform left heart catheterization, left ventriculogram and selective coronary angiogram. At the end of the procedure the sheath was removed good hemostasis was achieved using Traclet band, patient was transferred to the postop holding area in stable condition. ANGIOGRAPHIC RESULTS The left main artery Normal The left anterior descending artery Normal The circumflex artery Normal The right coronary artery Dominant normal The CHACON ventriculogram reveals Normal 65% The left ventricular end-diastolic pressure 15 to 20 mmHg IMPRESSION Normal coronary arteries Normal ejection fraction Elevated LVEDP PLAN 1. Medical management Electronically signed by : Thomas Allan MD 06/19/2023 10:26:29
[2023-06-19 09:33] LABS: Basophils # 0.1 K/mm3 (0-0.2); Basophils % 0.6 % (0.1-2.0); Eosinophils # 0.3 K/mm3 (0.0-0.4); Hematocrit 39.8 % (37.0-47.0); Hemoglobin 13.2 g/dL (12.2-16.2); Lymphocytes # 1.6 K/mm3 (0.7-4.5); Lymphocytes % 18.1 % (10-50); Mean Corpuscular HGB Conc 33.1 g/dL (31.8-35.4); Mean Corpuscular Hemoglobin 32.1 pg (27.0-31.2); Mean Platelet Volume 9.1 fl (7.4-10.4); Monocytes # 0.5 K/mm3 (0.1-1.0); Monocytes % 5.8 % (1.7-9.3); Neutrophils # 6.2 K/mm3 (1.8-7.8); Neutrophils % 72.4 % (37.0-80.0); Platelet Count 239 K/mm3 (142-424); Red Blood Count 4.11 M/mm3 (4.20-5.40); Red Cell Distribution Width 14.4 % (11.5-17.5); White Blood Count 8.6 K/mm3 (4.8-10.8)
[2023-06-19 09:42] LABS: Anion Gap 11.4 mEq/L (5-15); Blood Urea Nitrogen 21 mg/dl (7-17); Calcium 8.8 mg/dl (8.4-10.2); Carbon Dioxide 27 mmol/L (22.0-30.0); Chloride 107 mmol/L (98-107); Creatinine Clearance Estimated 67 mL/min (50-200); Estimated Glomerular Filt Rate 46 ml/min (>60); GFR (African American) 55 ML/MIN (>60); Glucose 104 mg/dl (74-100); Potassium 4.4 mmoL/L (3.5-5.1); Sodium 141 mmol/L (136-145)
[2023-06-19 09:50] LABS: INR 1.07 (0.9-1.1); Prothrombin Time 11.5 seconds (10.1-12.5)
[2023-06-19] MEDS: diphenhydrAMINE 50MG/ML VIAL 50 MG IV (10:15)
[2023-06-19] MEDS: VERAPAMIL 2.5MG/ML 2ML VIAL 2.5 MG IV (10:15)
[2023-06-19] MEDS: HEPARIN 1,000 UNITS/ML 10ML VIAL (CATH LAB) 10000 UNIT IV (10:15)
[2023-06-19] MEDS: NITROGLYCERIN 800MCG/8ML SYR (CATH LAB) 800 MCG IA (10:15)
[2023-06-19] MEDS: HEPARIN 1,000 UNITS/500ML NS (CATH LAB) 3000 UNIT IV (10:16)
[2023-06-19] MEDS: LIDOCAINE 1% 10ML MDV 20 ML IJ (10:16)
[2023-06-19] MEDS: FENTANYL 100MCG/2ML VIAL 50 MCG IV (10:17)
[2023-06-19] MEDS: MIDAZOLAM HCL 1MG/1ML 5ML VIAL 1 MG IV (10:17)
[2023-06-19] MEDS: 0.9 % SODIUM CHLORIDE 500 ML 25 ML IV (10:17)
[2023-06-19] MEDS: IOPAMIDOL-370 (76%);100ML BOTTLE 50 ML IV (11:58)
== END 2023-06-19 13:28 | disposition home or self-care (01) ==
PROVIDERS: PCP Internal Medicine; Visit Provider Internal Medicine
DX: I20.89 Other forms of angina pectoris (principal); R94.39 Abnormal result of other cardiovascular function study; Z79.899 Other long term (current) drug therapy; Z79.01 Long term (current) use of anticoagulants; F17.210 Nicotine dependence, cigarettes, uncomplicated; I11.9 Hypertensive heart disease without heart failure; G47.33 Obstructive sleep apnea (adult) (pediatric); R06.00 Dyspnea, unspecified; R94.31 Abnormal electrocardiogram [ECG] [EKG]; Z86.718 Personal history of other venous thrombosis and embolism
CPT/HCPCS: 80048; 85025; 85610; 93458; 99152; C1725; C1769; J1644; Q9967

== ENCOUNTER 2023-07-10 08:47 | Day surgery (SDC) | payer MEDICARE, SELFPAY ==
[2023-07-07 11:08] VITALS: BMI 34.2
[2023-07-10] VITALS (7 sets, daily range): BP systolic 92–155; BP diastolic 59–92; PULSE 73–86; RESP 16–18; TEMP 36.1–36.4; O2SAT 94–100
[2023-07-10] MEDS: LACTATED RINGERS 1000ML 1,000 ML 25 ML IV (08:57)
--- NOTE | 2023-07-10 09:00 | ECG_ITS ---
APPROVED REPORT Exam: Resting ECG HR:67 bpm ECG Measurements Heart Rate 67 AXES DC 132 P 15 QRSd 94 QRS 41 QT 407 T 11 QTc 422 Conclusion SINUS RHYTHM NONSPECIFIC T-WAVE ABNORMALITY BORDERLINE ECG UNCONFIRMED REPORT Electronically signed by : Reed Raphael MD 07/10/2023 17:15:48
--- NOTE | 2023-07-10 09:13 | CA_ITS ---
APPROVED REPORT EXAM: Comprehensive 2D, Doppler, and color-flow Echocardiogram Accountant Tax: Devika Villagomez MARZENA Ht: 5 ft 2 in Wt: 187lbs BSA: 1.86 BP: 102/57 mmHg Indications: MR OF INDETERMINATE SEVERITY, ,EDEMA,SOA, PRE-OP Procedure After obtaining informed consent, patient underwent transesophageal echo in the [facility]. Type of Sedation : MAC Sedation start time: 11:20 Case end Time: 11:30 Sedation was achieved intravenously with: Fentanyl () Propofol () The NORMA was performed without complications. Throughout the procedure, the blood pressure, pulse oximetry, cardiac rhythm, and rate were monitored. The patient tolerated the procedure without adverse effects. Recovery from conscious sedation was uneventful and vital signs were stable. Left Ventricle The left ventricle is normal size. The left ventricular systolic function is low normal There is normal left ventricular wall thickness. There is normal LV segmental wall motion. LVEF is 50%. Right Ventricle Right ventricle is mildly dilated. Right ventricle is mildly hypokinetic. Atria Left atrium is moderately dilated. No thrombus is visualized in the left atrium or left atrial appendage. Right atrium is moderately dilated. Interatrial septum is intact without evidence of ASD or PFO. Aortic Valve The aortic valve opens well. The aortic valve is trileaflet. There is no aortic valvular stenosis. Trace aortic regurgitation. Mitral Valve There is mild bileaflet mitral valve prolapse present. There is no evidence of mitral annular disjunction (MAD). No evidence of mitral valve stenosis. Mild mitral regurgitation. Tricuspid Valve The tricuspid valve leaflets are thin and pliable. Mild tricuspid regurgitation. RVSP is normal. Pulmonic Valve The pulmonary valve is normal in structure. Trace pulmonic regurgitation. Great Vessels The aortic root is normal in size. The ascending aorta is normal in size. Pericardium There is no pericardial effusion. Other Information Study Quality: Fair Conclusion Low normal LV systolic function (LVEF 50%). Mild RV dilation with mild RV dysfunction. Mild bileaflet mitral valve prolapse. No evidence of mitral annular disjunction (MAD) in the setting of presence of prolapse. Mild MR. Mild TR. Electronically signed by : Radha Bland MD 07/10/2023 22:47:36
[2023-07-10 09:15] LABS: Basophils # 0.1 K/mm3 (0-0.2); Basophils % 0.7 % (0.1-2.0); Eosinophils # 0.3 K/mm3 (0.0-0.4); Eosinophils % 3.9 % (0.1-12.0); Hematocrit 41.8 % (37.0-47.0); Hemoglobin 13.9 g/dL (12.2-16.2); Lymphocytes # 1.3 K/mm3 (0.7-4.5); Lymphocytes % 16.4 % (10-50); Mean Corpuscular HGB Conc 33.3 g/dL (31.8-35.4); Mean Corpuscular Hemoglobin 32.1 pg (27.0-31.2); Mean Corpuscular Volume 96.2 fl (81-99); Monocytes # 0.5 K/mm3 (0.1-1.0); Monocytes % 5.8 % (1.7-9.3); Neutrophils # 5.9 K/mm3 (1.8-7.8); Neutrophils % 73.2 % (37.0-80.0); Platelet Count 292 K/mm3 (142-424); Red Blood Count 4.34 M/mm3 (4.20-5.40); Red Cell Distribution Width 14.1 % (11.5-17.5); White Blood Count 8.1 K/mm3 (4.8-10.8)
--- NOTE | 2023-07-10 09:20 | EXP.ANES.CKL ---
[facility] Disclaimer: The information contained in this section may have been updated after the patient was seen, as this information can be updated by other users. Medical History Abscess of buttock, left Anxiety Daytime somnolence DVT (deep venous thrombosis) Edema Encounter for pre-operative cardiovascular clearance HTN (hypertension) Hypothyroid Obstructive Sleep Apnea-Hypopnea Syndrome Warfarin anticoagulation Surgical History History of back surgery History of knee surgery History of knee surgery History of left hip replacement History of right hip replacement Family History Other Family history of heart disease Social History Smoking Status: Current every day smoker tobacco type: cigarettes packs per day: 1 alcohol intake: never substance use type: denies use current occupational status: disabled and other Travel in the last 8 weeks: None caffeine: Yes [facility] Anesthesia Checklist Patient Identification Patient Identification: Arm Band, Family and Verbal (Name & ) Structural Data Admitted From: Home Planned Operative Procedure/s: NORMA Consent for Planned Operative Procedure(s) Verified: Yes Verified Documents: Surgical Consent and History and Physical NPO Status Verified Time NPO: 21:00 Chart Verification Results Verified: CBC, BMP, PT, PTT, INR, ECG and Chest Xray Additional verifications Patient : No Anesthesia Reactions: Yes (ANXIOUS) Cardiovascular Assessment Heart Sounds: S1 & S2 Pulse Rhythm: Irregular Peripheral Edema: No Airway Assessment Mallampati Score:: Class II C-Spine Mobility Assessed: Yes (FROM) TMJ Mobility Assessed: Yes Dentition: Edentulous Neurological Assessment Level of Consciousness: Awake, Alert, Appropriate and Follows Commands Hx Seizures: No Numbness or tingling in extremities: No Anesthesia Plan Anesthesia Risk discussed: Yes Anesthesia Plan: Verified ASA Class: III Anesthesia Type: MAC
[2023-07-10 09:21] LABS: Chloride 106 mmol/L (98-107); Sodium 139 mmol/L (136-145)
[2023-07-10 09:22] LABS: Potassium 4.7 mmoL/L (3.5-5.1)
[2023-07-10 09:24] LABS: Blood Urea Nitrogen 27 mg/dl (7-17); Creatinine Clearance Estimated 71 mL/min (50-200); Estimated Glomerular Filt Rate 50 ml/min (>60); GFR (African American) 61 ML/MIN (>60)
[2023-07-10 09:25] LABS: Anion Gap 7.7 mEq/L (5-15); Calcium 9.3 mg/dl (8.4-10.2); Carbon Dioxide 30 mmol/L (22.0-30.0); Glucose 88 mg/dl (74-100)
[2023-07-10 09:33] LABS: INR 1.25 (0.9-1.1); Prothrombin Time 13.3 seconds (10.1-12.5)
--- NOTE | 2023-07-10 11:41 | EXP.ANES.I ---
[facility] Anesthesia Record Part I Anesthesia Record I Intake, IV Amount: 600 Hydration: Adequate Estimated blood loss (mL): 0 Urine output (mL): 0 Blood Products used (#): none Blood Pressure: 101/71 SaO2: 95 Pulse Rate: 86 Airway Patency: Patent Respiratory Rate: 16 Temperature: 97.0 F Patient is:: Awake (Talking) and Stable Stable to PACU at:: 11:40
== END 2023-07-10 12:04 | disposition home or self-care (01) ==
PROVIDERS: PCP Internal Medicine; Visit Provider Internal Medicine
DX: I34.0 Nonrheumatic mitral (valve) insufficiency (principal); Z79.899 Other long term (current) drug therapy; F17.210 Nicotine dependence, cigarettes, uncomplicated; R06.00 Dyspnea, unspecified; R94.31 Abnormal electrocardiogram [ECG] [EKG]
CPT/HCPCS: 80048; 85025; 85610; 93005; 93270; 93312; 93319

== ENCOUNTER 2023-07-20 10:38 | Outpatient (CLI) | payer MEDICARE, SELFPAY ==
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
[2023-07-20 10:58] LABS: PHA INR Fingerstick 1.8 (0.9-1.1)
== END 2023-07-20 23:59 ==
LOC: ACC 10:40
PROVIDERS: PCP Internal Medicine; Visit Provider Physician Assistant
DX: R10.12 Left upper quadrant pain (principal); Z79.01 Long term (current) use of anticoagulants; Z51.81 Encounter for therapeutic drug level monitoring
CPT/HCPCS: 71046; 85610; 99211; G0463

== ENCOUNTER 2023-08-11 23:05 | Observation (INO) | payer MEDICARE, SELFPAY ==
[2023-08-11 23:09] VITALS: BP 154/78; PULSE 79; RESP 22; TEMP 36.8; O2SAT 98; BMI 34.5
[2023-08-11 23:15] VITALS: BP 154/78; PULSE 82; RESP 20; O2SAT 98
--- NOTE | 2023-08-11 23:16 | ED_ITS ---
Discharge Plan Disposition Patient Disposition: Home, Self-Care Prescriptions Prescriptions: No Action pantoprazole [Protonix] 40 mg tablet,delayed release (DR/EC) 40 mg PO DAILY Qty: 30 5RF furosemide 40 mg tablet 40 mg PO DAILY Qty: 90 3RF Rx Instructions: TAKE 1 TABLET EVERY DAY levothyroxine 50 mcg tablet 50 mcg PO DAILY Qty: 90 3RF Rx Instructions: TAKE 1 TABLET EVERY DAY warfarin 5 mg tablet 5 mg PO DAILY Qty: 90 3RF Rx Instructions: TAKE 1 TABLET EVERY DAY FOR DVT; OR DIRECTED atenolol 50 mg tablet 50 mg PO DAILY Qty: 90 3RF Rx Instructions: TAKE 1 TABLET EVERY DAY hydrocodone-acetaminophen 10-325 mg tablet 1 tab PO QID 30 Days Qty: 120 0RF gabapentin 800 mg tablet 800 mg PO TID 30 Days Qty: 90 0RF atorvastatin [Lipitor] 20 mg tablet 20 mg PO DAILY Qty: 90 3RF Referrals Follow up/Referrals: Mika Murrieta DO [Primary Care Provider] - See instructions Clinical Impressions Clinical Impression: Acute calculous cholecystitis Instructions Patient Instructions: DI for Acute Abdominal Pain Discharge ED Provider: Kirill Cordero General Adult HPI General Chief complaint: Abdominal Pain Stated complaint: pain in ribs both sides and back, hard to breathe Time Seen by Provider: 08/11/23 23:13 History of Present Illness HPI narrative: 63-year-old female with history of CKD, hypertension, prior abdominal surgery presents with about 24 hours of worsening right upper quadrant and epigastric pain. She reports it is severe. She reports a history of cholecystectomy. She denies any fever at home. She denies any active chest pain or shortness of breath. 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 She had a total colectomy at age 18, initially had an ileostomy, now has a BCIR. She has had no other abdominal surgeries. Related Data Previous Rx's Medication Instructions Recorded gabapentin 800 mg tablet 800 mg PO TID NEUROPATHY 30 days 07/17/23 #90 tabs atenolol 50 mg tablet 50 mg PO DAILY Hypertension #90 07/20/23 tabs furosemide 40 mg tablet 40 mg PO DAILY Edema #90 tabs 07/20/23 hydrocodone 10 mg-acetaminophen 1 tab PO QID Pain 30 days #120 tabs 07/20/23 325 mg tablet levothyroxine 50 mcg tablet 50 mcg PO DAILY THYROID #90 tabs 07/20/23 warfarin 5 mg tablet 5 mg PO DAILY BLOOD THINNER, HX OF 07/20/23 DVT #90 tabs pantoprazole 40 mg tablet,delayed 40 mg PO DAILY #30 tabs 07/26/23 release (Protonix) atorvastatin 20 mg tablet (Lipitor) 20 mg PO DAILY #90 tabs 08/02/23 Allergies Allergy/AdvReac Type Severity Reaction Status Date / Time erythromycin base Allergy Intermediate I-ITCHING Verified 07/26/23 13:50 morphine Allergy Intermediate I-RASH Verified 07/26/23 13:50 Penicillins Allergy Intermediate I-ITCHING Verified 07/26/23 13:50 sulfamethoxazole Allergy Intermediate Diarrhea Verified 07/26/23 13:50 [From Bactrim] trimethoprim [From Bactrim] Allergy Intermediate Diarrhea Verified 07/26/23 13:50 azithromycin Allergy Mild dry mouth Verified 07/26/23 13:50 [From Zithromax Z-Chace] rosuvastatin AdvReac Intermediate Nausea Verified 07/31/23 12:27 crestor AdvReac Mild zonked Uncoded 07/26/23 13:50 PFSH [facility] Disclaimer: The information contained in this section may have been updated after the patient was seen, as this information can be updated by other users. Medical History Abscess of buttock, left Anxiety Daytime somnolence DVT (deep venous thrombosis) Edema Encounter for pre-operative cardiovascular clearance HTN (hypertension) Hypothyroid LUQ pain Obstructive Sleep Apnea-Hypopnea Syndrome Still need to discuss this with this patient. Warfarin anticoagulation Still not clear to me why this patient is on Coumadin. Yes she did have a DVT although we do not have any of those records or imaging studies to clearly define how advanced this was. Further is not clear to me that she has a coagulopathy. Will check with Dr. Allan's team. Surgical History History of back surgery History of knee surgery History of knee surgery History of left hip replacement History of right hip replacement Family History Other Family history of heart disease Social History Smoking Status: Current every day smoker tobacco type: cigarettes packs per day: 1 alcohol intake: never substance use type: denies use current occupational status: disabled and other Travel in the last 8 weeks: None caffeine: Yes ROS Obtained: Yes All systems reviewed & no additional complaints except as documented Physical Exam General General appearance: alert Comment: Uncomfortable appearing Head Head exam: atraumatic and normocephalic Eye Eye exam: Present normal appearance, PERRL and EOMI ENT ENT exam: Present normal oropharynx and normal external ear exam Neck Neck exam: Present normal inspection and full ROM Chest Chest inspection: Present normal inspection and symmetric chest wall rise; Absent tenderness Respiratory Respiratory exam: Present normal lung sounds bilaterally; Absent respiratory distress Cardiovascular Cardiovascular exam: Present regular rate and normal rhythm Abdominal Exam Abdominal exam: Present soft, distention (Mild) and tenderness (Epigastric and right upper quadrant) Extremities Exam Extremities exam: Present normal inspection; Absent edema or joint swelling Back Exam Back exam: Present normal inspection; Absent tenderness Neurological Exam Neurological exam: Present alert and oriented X3; Absent motor sensory deficit Psychiatric Psychiatric exam: Present normal affect and normal mood Skin Skin exam: Present warm, dry and normal color Lymphatic Lymphatic Findings: no adenopathy Medical Decision Making Medical Records Medical records reviewed: Yes I reviewed the patient's medical records. Jonathon Inquiry Pt receiving controlled substance: No Jonathon was queried for this patient: No Vital Signs: 08/11/23 23:09 08/11/23 23:15 08/12/23 00:00 Temperature 98.2 F Temperature Source Oral Pulse Rate 82 72 Pulse Rate [Left Radial] 79 Respiratory Rate 22 20 20 Blood Pressure 154/78 H 143/71 H Blood Pressure [Right Arm] 154/78 H Blood Pressure Mean 126 106 Blood Pressure Mean [Right Arm] 103 Blood Pressure Source [Right Arm] Automatic Cuff Blood Pressure Position [Right Arm] Supine 02 Sat by Pulse Oximetry 98 98 99 Oxygen Delivery Method Room Air Room Air Room Air 08/12/23 00:31 08/12/23 01:01 Temperature Temperature Source Pulse Rate 81 78 Pulse Rate [Left Radial] Respiratory Rate 18 18 Blood Pressure 127/63 106/53 L Blood Pressure [Right Arm] Blood Pressure Mean 84 75 Blood Pressure Mean [Right Arm] Blood Pressure Source [Right Arm] Blood Pressure Position [Right Arm] 02 Sat by Pulse Oximetry 98 96 Oxygen Delivery Method Room Air Room Air Lab Data Lab results reviewed: Yes I reviewed the patient's lab results. Lab Results 08/11/23 23:23: WBC 9.0, RBC 4.23, Hgb 13.6, Hct 42.3, MCV 99.9 H, MCH 32.1 H, MCHC 32.2, RDW 14.0, Plt Count 262, MPV 9.7, Neut % (Auto) 60.3, Lymph % (Auto) 28.3, [place] % (Auto) 5.6, Eos % (Auto) 4.6, Baso % (Auto) 1.2, Neut # (Auto) 5.5, Lymph # (Auto) 2.6, [place] # (Auto) 0.5, Eos # (Auto) 0.4, Baso # (Auto) 0.1, Sodium 141, Potassium 4.0, Chloride 107, Carbon Dioxide 30, Anion Gap 8.0, BUN 23 H, Creatinine 1.20 H, Estimated Creat Clear 65, Estimated GFR 45 L, Est GFR ( Amer) 55 L, Glucose 94, Lactate 1.2, Calcium 9.4, Total Bilirubin 0.3, AST 33, ALT 19, Alkaline Phosphatase 88, Troponin I < 0.01, Total Protein 7.1, Albumin 4.0, Globulin 3.1, Albumin/Globulin Ratio 1.3, Lipase 265 08/11/23 23:23 08/11/23 23:23 Orders (Tests/Meds): ED MEDICATIONS Generic Name Dose Route Start Last Admin Trade Name Freq PRN Reason Stop Dose Admin Levofloxacin/Dextrose 750 mg in 150 mls @ 100 mls/hr 08/12/23 01:45 Levofloxacin 750mg/150ml Premix IV 08/12/23 03:14 ONCE ONE Metronidazole 500 mg in 100 mls @ 100 mls/hr 08/12/23 01:45 08/12/23 01:51 Flagyl 500mg/100ml Ivpb IV 08/12/23 02:44 100 mls/hr ONCE ONE Administration Discontinued Medications Generic Name Dose Route Start Last Admin Trade Name Freq PRN Reason Stop Dose Admin Acetaminophen 1,000 mg 08/11/23 23:27 08/11/23 23:37 Acetaminophen 500mg Tab PO 08/11/23 23:28 1,000 mg ONCE ONE Administration Hydromorphone HCl 0.5 mg 08/11/23 23:30 08/11/23 23:36 Hydromorphone 2mg/Ml Syringe IV 08/11/23 23:31 0.5 mg ONCE ONE Administration Hydromorphone HCl 0.5 mg 08/12/23 00:17 08/12/23 00:21 Hydromorphone 2mg/Ml Syringe IV 08/12/23 00:18 0.5 mg ONCE ONE Administration Lactated Ringer's 1,000 mls @ 999 mls/hr 08/11/23 23:30 08/11/23 23:37 Lactated Ringer's 1000 Ml Bag IV 08/12/23 00:30 999 mls/hr .Q1H1M MARITA Administration Iopamidol 75 ml 08/12/23 00:54 08/12/23 00:56 Iopamidol-370 (76%);100ml Bottle IV 08/12/23 00:55 75 ml ONCE ONE Administration Ondansetron HCl 4 mg 08/11/23 23:27 08/11/23 23:36 Ondansetron 4mg/2ml Vial IV 08/11/23 23:28 4 mg ONCE ONE Administration Sodium Chloride 10 ml 08/12/23 00:54 08/12/23 00:56 Sodium Chloride 0.9% 10ml Syr (Rad Only) IV 08/12/23 00:55 10 ml ONCE ONE Administration ORDERS Category Date Time Status CT abdomen pelvis w con Stat Cat Scan 08/11/23 23:27 Completed POCUS Point of Care (ER Only) Stat Exams 08/12/23 00:58 Completed CBC w/Auto Diff [Complete Blood Count Auto Diff] Stat Lab 08/11/23 23:23 Completed CMP [Comprehensive Metabolic Panel] Stat Lab 08/11/23 23:23 Completed Lactic Acid Stat Lab 08/11/23 23:23 Completed Lipase Stat Lab 08/11/23 23:23 Completed Troponin I Q3H Lab 08/11/23 23:23 Completed Troponin I Q3H Lab 08/12/23 02:30 Ordered ECG Data Tracing #1: I reviewed this ECG and interpreted as documented below: normal Sinus rhythm, rate of 75, no concerning ST or T wave changes ECG initial impression date: 08/11/23 ECG initial impression time: 23:18 HEART Score History (anamnesis): Slightly suspicious ECG: Normal Age: >65 years Risk factors: 1-2 risk factors Troponin: </= normal limit HEART Score: 3 Medical Decision Narrative: 63-year-old female with history of obesity, hypertension, chronic kidney disease, prior abdominal surgery presents with about 24 hours of epigastric and right upper quadrant pain. History was obtained interactive discussion with patient, chart review. On arrival, patient is [afebrile, hemodynamically stable, satting appropriately, alert, oriented x4, GCS 15], moving all extremities spontaneously. Full physical exam performed and significant for moderate epigastric and right upper quadrant tenderness with mild abdominal distention. Differential includes but is not limited to cholecystitis, pancreatitis, gastroenteritis, ACS, hepatitis. Patient was given IV Dilaudid 0.5 mg x 2, p.o. Tylenol, 1 L fluid bolus, 4 mg IV Zofran for symptomatic management and correction of underlying abnormalities. Workup initiated including CBC CMP lactate lipase CT abdomen pelvis with IV contrast. On re-evaluation, patient continues to have abdominal pain, though improved after interventions. Laboratory workup independently interpreted by me and significant for no significant leukocytosis, renal function at baseline, no significant electrolyte derangement, normal lipase, normal bilirubin. Imaging independently interpreted by me and significant for mildly dilated gallbladder, with gallbladder wall thickening and pericholecystic fluid.. See radiology read for full review of final results. Given this, a bedside ultrasound performed by me. It demonstrated anterior gallbladder wall thickening, mild pericholecystic fluid and gallstones present with positive sonographic Hadley sign consistent with acute cholecystitis. EKG independently interpreted by me and significant for normal sinus rhythm as documented above. Given patient history, exam and workup, patient's presentation most likely represents acute cholecystitis. Given penicillin allergy, patient was initiated on Levaquin and Flagyl for coverage of cholecystitis. General surgery was paged, I had an interactive discussion with Dr. Babin who accepted the patient. Procedures Risk/Benefits of Procedure(s) Were Explained: Yes Limited Ultrasound Indication:: Limited RUQ ultrasound Indication: Abdominal pain Identified structures: -Gallbladder -Gallbladder wall -Liver Findings: Sonographic Hadley sign: Present Gallstones: Present Sludge: Absent Pericholecystic fluid: Present Maximal GB wall thickness (mm): [normal is </= 3mm] 4.1 mm Common bile duct width (mm): [normal is </= 6mm] Unable to visualize Gallbladder width (cm): [normal is < 4cm] Grossly normal Gallbladder length (cm): [normal is < 10cm] Grossly normal Impression: Sonographic Hadley sign present, gallbladder wall thickening, pericholecystic fluid, gallstones noted. Findings consistent with acute cholecystitis Images were saved to permanent archive The study was technically adequate CPT 64608-35 Critical Care Critical Care Time Critical Care Time: No
--- NOTE | 2023-08-11 23:17 | ECG_ITS ---
APPROVED REPORT Exam: Resting ECG HR:75 bpm ECG Measurements Heart Rate 75 AXES SC 131 P 56 QRSd 84 QRS 52 QT 372 T 30 QTc 401 Conclusion SINUS RHYTHM NORMAL ECG UNCONFIRMED REPORT Electronically signed by : RAKESH GUTIERREZ, 08/12/2023 06:48:29
--- NOTE | 2023-08-11 23:27 | CT_ITS ---
PROCEDURE INFORMATION: Exam: CT Abdomen And Pelvis With Contrast Exam date and time: 08/12/2023 12:45 AM Age: 63 years old Clinical indication: Abdominal pain; Additional info: Epigastric/ruq pain TECHNIQUE: Imaging protocol: Computed tomography of the abdomen and pelvis with contrast. Radiation optimization: All CT scans at this facility use at least one of these dose optimization techniques: automated exposure control; mA and/or kV adjustment per patient size (includes targeted exams where dose is matched to clinical indication); or iterative reconstruction. Contrast material: ISOVUE; Contrast volume: 75 ml; Contrast route: IV; COMPARISON: 1. CT ABDOMEN PELVIS W CON 10/17/2022 12:[address] ABDOMEN PELVIS WO CON 05/02/2022 8:32 AM FINDINGS: Liver: Normal. Gallbladder and bile ducts: Gallbladder is distended and mildly thick-walled, consider right upper quadrant ultrasound for further evaluation. Pancreas: There is fatty replacement of the pancreas. Spleen: Normal. Adrenal glands: The adrenal glands appear normal. Kidneys and ureters: There are no soft tissue renal masses or hydronephrosis. Stomach and bowel: Prior Riana-en-Y gastric bypass. Evidence for prior right lower quadrant ostomy. Appendix: No evidence of appendicitis. Intraperitoneal space: Unremarkable. Vasculature: The abdominal aorta and its major branches appear normal without evidence of aneurysm or stenosis. There are pelvic phleboliths. Lymph nodes: No lymphadenopathy. Urinary bladder: Unremarkable as visualized. Reproductive: Reproductive viscera is poorly evaluated due to streak artifact from bilateral hip arthroplasties. The uterus is not visualized and the patient is suspected to be status post hysterectomy, difficult to verify. Bones/joints: Prior bilateral total hip arthroplasty with associated streak artifact that obscures evaluation of the pelvis. The urinary bladder is not well evaluated due to streak artifact from bilateral hip arthroplasties. Pelvic lymphatic chains are poorly evaluated secondary to streak artifact from bilateral hip arthroplasties. Soft tissues: There are postsurgical changes of the ventral abdominal wall. IMPRESSION: 1. Gallbladder is distended and mildly thick-walled, consider right upper quadrant ultrasound for further evaluation. 2. Bilateral hip arthroplasties with streak artifact that limits evaluation of the pelvis.
[2023-08-11] MEDS: HYDROMORPHONE 2MG/ML SYRINGE 0.5 MG IV (23:36)
[2023-08-11] MEDS: ONDANSETRON 4MG/2ML VIAL 4 MG IV (23:36)
[2023-08-11] MEDS: ACETAMINOPHEN 500MG TAB 1000 MG PO (23:37)
[2023-08-11] MEDS: LACTATED RINGERS 1000ML 1,000 ML 999 ML IV (23:37)
[2023-08-11 23:38] LABS: Chloride 107 mmol/L (98-107); Sodium 141 mmol/L (136-145)
[2023-08-11 23:41] LABS: Alanine Aminotransferase 19 U/L (12-78); Albumin/Globulin Ratio 1.3 (1.1-1.8); Alkaline Phosphatase 88 U/L (38-126); Aspartate Amino Transferase 33 U/L (14-36); Bilirubin,Total 0.3 mg/dl (0.2-1.3); Blood Urea Nitrogen 23 mg/dl (7-17); Carbon Dioxide 30 mmol/L (22.0-30.0); Creatinine Clearance Estimated 65 mL/min (50-200); Estimated Glomerular Filt Rate 45 ml/min (>60); GFR (African American) 55 ML/MIN (>60); Globulin 3.1 g/dL (1.3-3.2); Lactic Acid 1.2 mmol/L (0.7-2.1); Lipase 265 U/L (23-300); Total Protein,Serum 7.1 g/dl (6.3-8.2)
[2023-08-11 23:42] LABS: Basophils # 0.1 K/mm3 (0-0.2); Basophils % 1.2 % (0.1-2.0); Calcium 9.4 mg/dl (8.4-10.2); Eosinophils # 0.4 K/mm3 (0.0-0.4); Eosinophils % 4.6 % (0.1-12.0); Glucose 94 mg/dl (74-100); Hematocrit 42.3 % (37.0-47.0); Hemoglobin 13.6 g/dL (12.2-16.2); Lymphocytes # 2.6 K/mm3 (0.7-4.5); Lymphocytes % 28.3 % (10-50); Mean Corpuscular HGB Conc 32.2 g/dL (31.8-35.4); Mean Corpuscular Hemoglobin 32.1 pg (27.0-31.2); Mean Corpuscular Volume 99.9 fl (81-99); Mean Platelet Volume 9.7 fl (7.4-10.4); Monocytes # 0.5 K/mm3 (0.1-1.0); Monocytes % 5.6 % (1.7-9.3); Neutrophils # 5.5 K/mm3 (1.8-7.8); Neutrophils % 60.3 % (37.0-80.0); Platelet Count 262 K/mm3 (142-424); Red Blood Count 4.23 M/mm3 (4.20-5.40)
[2023-08-12] VITALS (8 sets, daily range): BP systolic 98–143; BP diastolic 49–76; PULSE 68–81; RESP 16–20; TEMP 36.4–36.8; O2SAT 95–99; BMI 356620.7
[2023-08-12] LABS: Troponin I < 0.01 ng/ml (0.00-0.034)
[2023-08-12] MEDS: HYDROMORPHONE 2MG/ML SYRINGE 0.5 MG IV ×3 (00:21→08:12)
[2023-08-12] MEDS: IOPAMIDOL-370 (76%);100ML BOTTLE 75 ML IV (00:56)
[2023-08-12] MEDS: SODIUM CHLORIDE 0.9% 10ML SYR (RAD ONLY) 10 ML IV (00:56)
--- NOTE | 2023-08-12 01:43 | PC.NURSE ---
paged dr cardona to [phone]
[2023-08-12] MEDS: METRONIDAZ/SOD CHL 500 MG/100 ML PIGGYBACK 100 MG IV ×2 (01:51→10:50)
--- NOTE | 2023-08-12 02:12 | PC.NURSE ---
called admissions to [facility] again as he has not returned our call. spoke with georgina.
--- NOTE | 2023-08-12 02:18 | PC.NURSE ---
on phone with hospitalist. agree to admit. wes notified
--- NOTE | 2023-08-12 02:19 | PC.NURSE ---
Bed assignment 205 of given by charge. Registration notified.
--- NOTE | 2023-08-12 02:27 | P.HP_ITS ---
History of Present Illness *Admission Date: 08/12/23 *Reason for visit:: abd pain *History of present illness: This is a 63-year-old female PMHX obesity, CKD, hypertension, DVT on warfarin, PAD presented to ED with about 24 hours of worsening right upper quadrant and epigastric pain. She reported it is severe and nothing tried at home will provide relief. She denies any fever at home. She denies any active chest pain or shortness of breath. 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 She had a total colectomy at age 18, initially had an ileostomy, now has a BCIR. She has had no other abdominal surgeries. admitted for treatment and management. [facility] Disclaimer: The information contained in this section may have been updated after the patient was seen, as this information can be updated by other users. Medical History Abscess of buttock, left Anxiety Daytime somnolence DVT (deep venous thrombosis) Edema Encounter for pre-operative cardiovascular clearance HTN (hypertension) Hypothyroid LUQ pain Obstructive Sleep Apnea-Hypopnea Syndrome Still need to discuss this with this patient. Warfarin anticoagulation Still not clear to me why this patient is on Coumadin. Yes she did have a DVT although we do not have any of those records or imaging studies to clearly define how advanced this was. Further is not clear to me that she has a coagulopathy. Will check with Dr. Allan's team. Surgical History History of back surgery History of knee surgery History of knee surgery History of left hip replacement History of right hip replacement Family History Other Family history of heart disease Social History (Updated 08/12/23 @ 03:33 by Bethanie Carter RN) Smoking Status: Current every day smoker tobacco type: cigarettes packs per day: 1 alcohol intake: never substance use type: denies use current occupational status: disabled and other Travel in the last 8 weeks: None caffeine: Yes Review of Systems Review of Systems Review of systems:: pertinent systems reviewed and negative unless documented below Meds Home Medications and Allergies Home Medications Medication Instructions Recorded Confirmed Type atenolol 50 mg tablet 50 mg PO DAILY High Blood Pressure 08/12/23 08/12/23 History atorvastatin 20 mg tablet (Lipitor) 20 mg PO DAILY Cholesterol 08/12/23 08/12/23 History furosemide 40 mg tablet 40 mg PO DAILY Fluid 08/12/23 08/12/23 History gabapentin 800 mg tablet 800 mg PO TID NERVE PAIN 08/12/23 08/12/23 History hydrocodone 10 mg-acetaminophen 1 tab PO QID MODERATE TO SEVERE 08/12/23 08/12/23 History 325 mg tablet PAIN levothyroxine 50 mcg tablet 50 mcg PO DAILYDM THYROID 08/12/23 08/12/23 History pantoprazole 40 mg tablet,delayed 40 mg PO DAILY Acid Reflux 08/12/23 08/12/23 History release (Protonix) warfarin 5 mg tablet 5 mg PO SUMOTUWEFRSA BLOOD 08/12/23 08/12/23 History THINNER, HX OF DVT warfarin 5 mg tablet 7.5 mg PO TH BLOOD THINNER, DVT 08/12/23 08/12/23 History PROPHYLAXIS New Prescriptions to Start Prescriptions: Allergies Allergy/AdvReac Type Severity Reaction Status Date / Time erythromycin base Allergy Intermediate I-ITCHING Verified 07/26/23 13:50 morphine Allergy Intermediate I-RASH Verified 07/26/23 13:50 Penicillins Allergy Intermediate I-ITCHING Verified 07/26/23 13:50 sulfamethoxazole Allergy Intermediate Diarrhea Verified 07/26/23 13:50 [From Bactrim] trimethoprim [From Bactrim] Allergy Intermediate Diarrhea Verified 07/26/23 13:50 azithromycin Allergy Mild dry mouth Verified 07/26/23 13:50 [From Zithromax Z-Chace] rosuvastatin AdvReac Intermediate Nausea Verified 07/31/23 12:27 crestor AdvReac Mild zonked Uncoded 07/26/23 13:50 Exam Data for Last 24 hours Vital signs and Labs for Last 24 Hours: Temp Pulse Resp BP Pulse Ox O2 Del Method 98.2 F 78 18 106/53 L 96 Room Air 08/11/23 23:09 08/12/23 01:01 08/12/23 01:01 08/12/23 01:01 08/12/23 01:01 08/12/23 01:01 Laboratory Results - last 24 hr 08/11/23 23:23: WBC 9.0, RBC 4.23, Hgb 13.6, Hct 42.3, MCV 99.9 H, MCH 32.1 H, MCHC 32.2, RDW 14.0, Plt Count 262, MPV 9.7, Neut % (Auto) 60.3, Lymph % (Auto) 28.3, [place] % (Auto) 5.6, Eos % (Auto) 4.6, Baso % (Auto) 1.2, Neut # (Auto) 5.5, Lymph # (Auto) 2.6, [place] # (Auto) 0.5, Eos # (Auto) 0.4, Baso # (Auto) 0.1, Sodium 141, Potassium 4.0, Chloride 107, Carbon Dioxide 30, Anion Gap 8.0, BUN 23 H, Creatinine 1.20 H, Estimated Creat Clear 65, Estimated GFR 45 L, Est GFR ( Amer) 55 L, Glucose 94, Lactate 1.2, Calcium 9.4, Total Bilirubin 0.3, AST 33, ALT 19, Alkaline Phosphatase 88, Troponin I < 0.01, Total Protein 7.1, Albumin 4.0, Globulin 3.1, Albumin/Globulin Ratio 1.3, Lipase 265 I & O for Last 24 hours: Intake & Output 08/09/23 08/10/23 08/11/23 08/12/23 23:59 23:59 23:59 23:59 Weight 85.729 kg Constitutional Constitutional: moderate distress, morbidly obese and cooperative *Routine HEENT Exam Head: Present normocephalic and atraumatic Eye: Present EOMI, PERRL and normal accommodation ENT: Present mucous membranes moist *Routine Neck Exam Neck: Present supple, full ROM and trachea midline *Routine Respiratory Exam Respiratory: Present CTA bilaterally, normal respiratory effort and symmetric chest movement; Absent respiratory distress *Routine Cardiovascular Exam Cardiovascular: Present RRR, Normal S1 and Normal S2 *Routine Abdominal Exam Abdominal: Present soft, normoactive bowel sounds, tenderness, rebound, guarding and obese *Routine Rectal Exam Rectal:: deferred *Routine Genitalia Exam Genitalia:: deferred *Routine Extremities Exam Extremities: Present full ROM and pulses intact; Absent cyanosis, clubbing or edema *Routine Skin Exam Skin: Present intact; Absent cyanosis, erythema or rash *Routine Neurological Exam Neurological: Present alert, oriented X3, normal reflexes, moving all extremities and normal speech Routine Psychiatric Exam Psychiatric: Present cooperative, good insight and good judgment H&P: Result Imaging and Cardiology CT scan - abdomen: Status: image reviewed by me, Preliminary report and final report Assessment and Plan *Assessment and plan (1) Abdominal pain: Status: Acute Qualifiers: Abdominal location: upper abdomen, unspecified Qualified Code(s): R10.10 - Upper abdominal pain, unspecified Category: Medical Code(s): R10.9 - Unspecified abdominal pain (2) Acute calculous cholecystitis: Status: Acute Category: Surgical Code(s): K80.00 - Calculus of gallbladder with acute cholecystitis without obstruction (3) Hypertensive heart disease: Problem Comment: Following with Dr. Allan and his team, blood pressure today was 134/76. Continue current therapies. Status: Acute Qualifiers: Heart failure presence: without heart failure Qualified Code(s): I11.9 - Hypertensive heart disease without heart failure Category: Medical Code(s): I11.9 - Hypertensive heart disease without heart failure (4) Chronic kidney disease, stage 3a: Problem Comment: This is been stable for actually well over a year. Will follow this closely. Status: Acute Category: Medical Code(s): N18.31 - Chronic kidney disease, stage 3a (5) Chronic GERD: Status: Acute Category: Medical Code(s): K21.9 - Gastro-esophageal reflux disease without esophagitis (6) Obesity (BMI 30-39.9): Status: Acute Category: Medical Code(s): E66.9 - Obesity, unspecified (7) Tobacco dependence syndrome: Problem Comment: Discussed with the patient her need to quit smoking. Status: Acute Category: Medical Code(s): F17.200 - Nicotine dependence, unspecified, uncomplicated (8) Deep venous thrombosis of lower extremity: Status: Acute Qualifiers: Affected thrombotic vein of extremity: unspecified vein of extremity Chronicity: unspecified Laterality: left Qualified Code(s): I82.402 - Acute embolism and thrombosis of unspecified deep veins of left lower extremity Category: Medical Code(s): I82.409 - Acute embolism and thrombosis of unspecified deep veins of unspecified lower extremity (9) Warfarin anticoagulation: Problem Comment: Still not clear to me why this patient is on Coumadin. Yes she did have a DVT although we do not have any of those records or imaging studies to clearly define how advanced this was. Further is not clear to me that she has a coagulopathy. Will check with Dr. Allan's team. Status: Chronic Category: Medical Code(s): Z79.01 - disability hearing officer (current) use of anticoagulants (10) Family history of FAP (familial adenomatous polyposis): Problem Comment: s/p BCIR as a teen Status: Chronic Category: Medical Code(s): Z83.71 - Family history of colonic polyps Plan 63-year-old female PMHX obesity, CKD, hypertension, DVT on warfarin, PAD presented to ED with about 24 hours of worsening right upper quadrant and epigastric pain. She reported it is severe and nothing tried at home will provide relief. She denies any fever, N/V. on arrival initial labs works are grossly unremarkable. CT of abdomen concerning for gallbladder distention and no n obstructive cholecystitis. Imaging reviewed. Bed side US performed by ER confirmed, findings. It demonstrated anterior gallbladder wall thickening, mild pericholecystic fluid and gallstones present with positive sonographic Hadley sign consistent with acute cholecystitis. Findings discussed with ED for admission. surgeon environmental remediation engineer consulted. requested PT/INR. plan as follow: -Abdominal pain likely secondary to acute cholescystitis: admit patient. surgical consult started IV hydration . keep patient NPO levofloxacin and flagyl empirically started at ER pain management. On dilaudi obtain PT/INR -HTN. CKD, GERD: conditon at baseline. reviewed, resume home regimen -morbidly obese. educated on weigh management. - tobacco dependance. On nicotine patch, - previous Hx of DVT on warfarin. Per chart review is unclear when the patient started on this and the severity of the DVT. PT/INR 14.5/1.37 SCD for DVT ppx. on Protonix Full code Rounded on patient after nurse practitioner. Personally examined and interviewed patient. Agree with exam findings and care plan as documented. 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 Liver enzymes remained stable this morning. Imaging of abdomen does show cholecystitis. Continue antibiotics with transition to cefepime 2 g every 12 hours for monotherapy. Anticipate n.p.o. at midnight and surgery tomorrow. repeat INR in the morning. White count normal at 6.9, liver enzymes normal with normal AST, ALT, alk phos. Bilirubin normal. Still having significant right upper quadrant pain, positive Hadley sign on exam.
[2023-08-12 02:28] LABS: INR 1.37 (0.9-1.1); Prothrombin Time 14.5 seconds (10.1-12.5)
--- NOTE | 2023-08-12 02:40 | PC.NURSE ---
report called to Omer Carter RN at this time
--- NOTE | 2023-08-12 03:01 | PC.NURSE ---
pt arrived to floor at this time
[2023-08-12] MEDS: NICOTINE 21MG/24HR PATCH 21 MG TD (03:56)
[2023-08-12] MEDS: LEVOFLOXACIN/D5W 750 MG/150 ML 750 MG/150 ML PIGGYBACK 100 MG IV (03:56)
[2023-08-12] MEDS: KETOROLAC 30MG/ML VIAL 30 MG IV (03:56)
[2023-08-12] MEDS: 0.9 % SODIUM CHLORIDE 1000ML 1,000 ML 75 ML IV ×3 (03:57→21:10)
--- NOTE | 2023-08-12 04:48 | PC.NURSE ---
new admit, pt c/o of upper abdominal pain 11/12, medicated per aug with favorable results, NPO for surgical consult today, call button is in reach.
[2023-08-12 07:37] LABS: Alanine Aminotransferase 12 U/L (12-78); Albumin Level 3.5 g/dl (3.5-5.0); Albumin/Globulin Ratio 1.3 (1.1-1.8); Alkaline Phosphatase 71 U/L (38-126); Anion Gap 7.5 mEq/L (5-15); Aspartate Amino Transferase 25 U/L (14-36); Bilirubin,Total 0.3 mg/dl (0.2-1.3); Blood Urea Nitrogen 20 mg/dl (7-17); Calcium 8.8 mg/dl (8.4-10.2); Carbon Dioxide 28 mmol/L (22.0-30.0); Chloride 106 mmol/L (98-107); Creatinine Clearance Estimated 73 mL/min (50-200); Estimated Glomerular Filt Rate 50 ml/min (>60); GFR (African American) 61 ML/MIN (>60); Globulin 2.6 g/dL (1.3-3.2); Glucose 73 mg/dl (74-100); Magnesium 2.2 mg/dl (1.6-2.3); Potassium 4.5 mmoL/L (3.5-5.1); Sodium 137 mmol/L (136-145); Total Protein,Serum 6.1 g/dl (6.3-8.2)
[2023-08-12 07:42] LABS: Basophils # 0.1 K/mm3 (0-0.2); Basophils % 1.2 % (0.1-2.0); Eosinophils # 0.2 K/mm3 (0.0-0.4); Eosinophils % 3.4 % (0.1-12.0); Hematocrit 38.6 % (37.0-47.0); Lymphocytes % 28.4 % (10-50); Mean Corpuscular HGB Conc 31.1 g/dL (31.8-35.4); Mean Corpuscular Hemoglobin 31.8 pg (27.0-31.2); Mean Corpuscular Volume 102.3 fl (81-99); Mean Platelet Volume 9.7 fl (7.4-10.4); Monocytes # 0.5 K/mm3 (0.1-1.0); Monocytes % 7.2 % (1.7-9.3); Neutrophils # 4.1 K/mm3 (1.8-7.8); Neutrophils % 59.8 % (37.0-80.0); Platelet Count 190 K/mm3 (142-424); Red Blood Count 3.77 M/mm3 (4.20-5.40); White Blood Count 6.9 K/mm3 (4.8-10.8)
[2023-08-12 08:05] LABS: Hemoglobin 12.1 g/dL (12.2-16.2)
[2023-08-12] MEDS: PROMETHAZINE HCL 25MG/ML 1ML VIAL 25 MG IV (08:19)
--- NOTE | 2023-08-12 12:36 | P.CONS_ITS ---
History of Present Illness *Admission Date: 08/12/23 *Reason for visit:: abdominal pain *History of present illness: This is a 63-year-old female PMHX obesity, CKD, hypertension, DVT on warfarin, PAD presented to ED with about 24 hours of worsening right upper quadrant and epigastric pain. She reported it is severe and nothing tried at home will provide relief. She denies any fever at home. She denies any active chest pain or shortness of breath. 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 She had a total colectomy at age 18, initially had an ileostomy, now has a BCIR. She has had no other abdominal surgeries. admitted for treatment and management. Still complaining of RUQ abd pain on my evaluation. She has had a similar pain in the past that resolved with time. She now has persistent pain without much relief. She has spicy mikhail last night for dinner and experienced the pain shortly thereafter. [facility] Disclaimer: The information contained in this section may have been updated after the patient was seen, as this information can be updated by other users. Medical History Abscess of buttock, left Anxiety Daytime somnolence DVT (deep venous thrombosis) Edema Encounter for pre-operative cardiovascular clearance HTN (hypertension) Hypothyroid LUQ pain Obstructive Sleep Apnea-Hypopnea Syndrome Still need to discuss this with this patient. Warfarin anticoagulation Still not clear to me why this patient is on Coumadin. Yes she did have a DVT although we do not have any of those records or imaging studies to clearly define how advanced this was. Further is not clear to me that she has a coagulopathy. Will check with Dr. Allan's team. Surgical History History of back surgery History of knee surgery History of knee surgery History of left hip replacement History of right hip replacement Family History Other Family history of heart disease Social History (Updated 08/12/23 @ 03:33 by Bethanie Carter RN) Smoking Status: Current every day smoker tobacco type: cigarettes packs per day: 1 alcohol intake: never substance use type: denies use current occupational status: disabled and other Travel in the last 8 weeks: None caffeine: Yes Review of Systems Review of Systems Review of systems:: pertinent systems reviewed and negative unless documented below Meds Home Medications and Allergies Home Medications Medication Instructions Recorded Confirmed Type atenolol 50 mg tablet 50 mg PO DAILY High Blood Pressure 08/12/23 08/12/23 History atorvastatin 20 mg tablet (Lipitor) 20 mg PO DAILY Cholesterol 08/12/23 08/12/23 History furosemide 40 mg tablet 40 mg PO DAILY Fluid 08/12/23 08/12/23 History gabapentin 800 mg tablet 800 mg PO TID NERVE PAIN 08/12/23 08/12/23 History hydrocodone 10 mg-acetaminophen 1 tab PO QID MODERATE TO SEVERE 08/12/23 08/12/23 History 325 mg tablet PAIN levothyroxine 50 mcg tablet 50 mcg PO DAILYDM THYROID 08/12/23 08/12/23 History pantoprazole 40 mg tablet,delayed 40 mg PO DAILY Acid Reflux 08/12/23 08/12/23 History release (Protonix) warfarin 5 mg tablet 5 mg PO SUMOTUWEFRSA BLOOD 08/12/23 08/12/23 History THINNER, HX OF DVT warfarin 5 mg tablet 7.5 mg PO TH BLOOD THINNER, DVT 08/12/23 08/12/23 History PROPHYLAXIS New Prescriptions to Start Prescriptions: Allergies Allergy/AdvReac Type Severity Reaction Status Date / Time erythromycin base Allergy Intermediate I-ITCHING Verified 07/26/23 13:50 morphine Allergy Intermediate I-RASH Verified 07/26/23 13:50 Penicillins Allergy Intermediate I-ITCHING Verified 07/26/23 13:50 sulfamethoxazole Allergy Intermediate Diarrhea Verified 07/26/23 13:50 [From Bactrim] trimethoprim [From Bactrim] Allergy Intermediate Diarrhea Verified 07/26/23 13:50 azithromycin Allergy Mild dry mouth Verified 07/26/23 13:50 [From Zithromax Z-Chace] rosuvastatin AdvReac Intermediate Nausea Verified 07/31/23 12:27 crestor AdvReac Mild zonked Uncoded 07/26/23 13:50 Exam (Inpt) Vital signs and Labs for Last 24 Hours: Temp Pulse Resp BP Pulse Ox O2 Del Method 97.5 F L 68 16 98/49 L 96 Room Air 08/12/23 08:00 08/12/23 08:00 08/12/23 08:00 08/12/23 08:00 08/12/23 08:00 08/12/23 09:00 Laboratory Results - last 24 hr 08/11/23 23:23: WBC 9.0, RBC 4.23, Hgb 13.6, Hct 42.3, MCV 99.9 H, MCH 32.1 H, MCHC 32.2, RDW 14.0, Plt Count 262, MPV 9.7, Neut % (Auto) 60.3, Lymph % (Auto) 28.3, [place] % (Auto) 5.6, Eos % (Auto) 4.6, Baso % (Auto) 1.2, Neut # (Auto) 5.5, Lymph # (Auto) 2.6, [place] # (Auto) 0.5, Eos # (Auto) 0.4, Baso # (Auto) 0.1, PT 14.5 H, INR 1.37 H, Sodium 141, Potassium 4.0, Chloride 107, Carbon Dioxide 30, Anion Gap 8.0, BUN 23 H, Creatinine 1.20 H, Estimated Creat Clear 65, Estimated GFR 45 L, Est GFR ( Amer) 55 L, Glucose 94, Lactate 1.2, Calcium 9.4, Total Bilirubin 0.3, AST 33, ALT 19, Alkaline Phosphatase 88, Troponin I < 0.01, Total Protein 7.1, Albumin 4.0, Globulin 3.1, Albumin/Globulin Ratio 1.3, Lipase 265 08/12/23 06:35: WBC 6.9, RBC 3.77 L, Hgb 12.1 L D, Hct 38.6, MCV 102.3 H, MCH 31.8 H, MCHC 31.1 L, RDW 14.0, Plt Count 190 D, MPV 9.7, Neut % (Auto) 59.8, Lymph % (Auto) 28.4, [place] % (Auto) 7.2, Eos % (Auto) 3.4, Baso % (Auto) 1.2, Neut # (Auto) 4.1, Lymph # (Auto) 2.0, [place] # (Auto) 0.5, Eos # (Auto) 0.2, Baso # (Auto) 0.1, Sodium 137, Potassium 4.5, Chloride 106, Carbon Dioxide 28, Anion Gap 7.5, BUN 20 H, Creatinine 1.10 H, Estimated Creat Clear 73, Estimated GFR 50 L, Est GFR ( Amer) 61, Glucose 73 L D, Calcium 8.8, Magnesium 2.2, Total Bilirubin 0.3, AST 25, ALT 12 D, Alkaline Phosphatase 71, Total Protein 6.1 L, Albumin 3.5 D, Globulin 2.6, Albumin/Globulin Ratio 1.3 I & O for Labs for Last 24 Hours: Intake & Output 08/09/23 08/10/23 08/11/23 08/12/23 23:59 23:59 23:59 23:59 Output Total 0 / 0 Balance 0 / 0 Weight 189 lb 195 lb Constitutional: no acute distress Head: Present normocephalic and atraumatic Neck: Present normal inspection Respiratory: Present CTA bilaterally Cardiac: Present Reg Rate and Rhythm GI: Present soft and tenderness (RUQ with positive nelson's and palpable gallbladder) Results Labs 08/12/23 06:35 08/12/23 06:35 Labs: Laboratory Results - last 24 hr 08/11/23 23:23: WBC 9.0, RBC 4.23, Hgb 13.6, Hct 42.3, MCV 99.9 H, MCH 32.1 H, MCHC 32.2, RDW 14.0, Plt Count 262, MPV 9.7, Neut % (Auto) 60.3, Lymph % (Auto) 28.3, [place] % (Auto) 5.6, Eos % (Auto) 4.6, Baso % (Auto) 1.2, Neut # (Auto) 5.5, Lymph # (Auto) 2.6, [place] # (Auto) 0.5, Eos # (Auto) 0.4, Baso # (Auto) 0.1, PT 14.5 H, INR 1.37 H, Sodium 141, Potassium 4.0, Chloride 107, Carbon Dioxide 30, Anion Gap 8.0, BUN 23 H, Creatinine 1.20 H, Estimated Creat Clear 65, Estimated GFR 45 L, Est GFR ( Amer) 55 L, Glucose 94, Lactate 1.2, Calcium 9.4, Total Bilirubin 0.3, AST 33, ALT 19, Alkaline Phosphatase 88, Troponin I < 0.01, Total Protein 7.1, Albumin 4.0, Globulin 3.1, Albumin/Globulin Ratio 1.3, Lipase 265 08/12/23 06:35: WBC 6.9, RBC 3.77 L, Hgb 12.1 L D, Hct 38.6, MCV 102.3 H, MCH 31.8 H, MCHC 31.1 L, RDW 14.0, Plt Count 190 D, MPV 9.7, Neut % (Auto) 59.8, Lymph % (Auto) 28.4, [place] % (Auto) 7.2, Eos % (Auto) 3.4, Baso % (Auto) 1.2, Neut # (Auto) 4.1, Lymph # (Auto) 2.0, [place] # (Auto) 0.5, Eos # (Auto) 0.2, Baso # (Auto) 0.1, Sodium 137, Potassium 4.5, Chloride 106, Carbon Dioxide 28, Anion Gap 7.5, BUN 20 H, Creatinine 1.10 H, Estimated Creat Clear 73, Estimated GFR 50 L, Est GFR ( Amer) 61, Glucose 73 L D, Calcium 8.8, Magnesium 2.2, Total Bilirubin 0.3, AST 25, ALT 12 D, Alkaline Phosphatase 71, Total Protein 6.1 L, Albumin 3.5 D, Globulin 2.6, Albumin/Globulin Ratio 1.[address] scan - abdomen: image reviewed (Distended gallbladder with pericholecystic fluid consistent with cholecystitis) Assessment and Plan *Assessment and plan (1) Acute calculous cholecystitis: Start date: 08/12/23 Start time: 02:00 Status: Acute Category: Surgical Code(s): K80.00 - Calculus of gallbladder with acute cholecystitis without obstruction Plan: Acute cholecystitis with palpable gallbladder and nelson's sign. I would recommend a lap yasmine. Risk of bleeding, infection, injury and anesthetic discussed and she agrees to proceed. Past surgical history increases her surgical risk some as well as her anticoagulation. Discussed with patient as well. (2) Deep venous thrombosis of lower extremity: Status: Acute Qualifiers: Affected thrombotic vein of extremity: unspecified vein of extremity C hronicity: unspecified Laterality: left Qualified Code(s): I82.402 - Acute embolism and thrombosis of unspecified deep veins of left lower extremity Category: Medical Code(s): I82.409 - Acute embolism and thrombosis of unspecified deep veins of unspecified lower extremity Plan: On chronic anticoagulation. INR normal. Will dose with prophylactic lovenox tonight. (3) Obesity (BMI 30-39.9): Status: Acute Category: Medical Code(s): E66.9 - Obesity, unspecified
[2023-08-12] MEDS: HYDROCODONE 10MG/APAP 325MG TAB 1 TAB PO ×2 (13:11→20:50)
[2023-08-12] MEDS: CEFEPIME HCL 2 GM in 0.9 % SODIUM CHLORIDE 100 ML IV (13:11)
[2023-08-12] MEDS: GABAPENTIN 800MG TABLET 800 MG PO ×2 (13:11→20:37)
[2023-08-12] MEDS: ACETAMINOPHEN 325MG TAB 650 MG PO (16:27)
--- NOTE | 2023-08-12 17:12 | PC.NURSE ---
PT HAS RESTED IN BED FOR MOST OF SHIFT. AMBULATES TO WITH STANDBY ASSIST AND TOLERATES WELL. MEDICATED FOR PAIN X3 WITH GOOD EFFECTIVENESS AND DID RECEIVE ONCE DOSE PHENERGAN THIS MORNING. WAS ABLE TO TOLERATE CLD THIS EVENING.
[2023-08-12] MEDS: PANTOPRAZOLE 40MG VIAL 40 MG IV (20:37)
[2023-08-12] MEDS: diphenhydrAMINE 25MG CAPSULE 25 MG PO (23:36)
[2023-08-13] MEDS: HYDROCODONE 10MG/APAP 325MG TAB 1 TAB PO ×4 (00:46→17:03)
[2023-08-13] MEDS: CEFEPIME HCL 2 GM in 0.9 % SODIUM CHLORIDE 100 ML IV ×2 (01:30→12:15)
[2023-08-13 04:00] VITALS: BP 120/64; PULSE 74; RESP 18; TEMP 36.4; O2SAT 96; BMI 370519.7
--- NOTE | 2023-08-13 07:32 | P.PN_ITS ---
Subjective Patient reports: no new complaints Exam Data for Last 24 hours Vital signs and Labs for Last 24 Hours: Temp Pulse Resp BP Pulse Ox O2 Del Method 97.5 F L 74 18 120/64 96 Room Air 08/13/23 04:00 08/13/23 04:00 08/13/23 04:00 08/13/23 04:00 08/13/23 04:00 08/13/23 04:48 Laboratory Results - last 24 hr 08/12/23 06:35: WBC 6.9, RBC 3.77 L, Hgb 12.1 L D, Hct 38.6, MCV 102.3 H, MCH 31.8 H, MCHC 31.1 L, RDW 14.0, Plt Count 190 D, MPV 9.7, Neut % (Auto) 59.8, Lymph % (Auto) 28.4, [place] % (Auto) 7.2, Eos % (Auto) 3.4, Baso % (Auto) 1.2, Neut # (Auto) 4.1, Lymph # (Auto) 2.0, [place] # (Auto) 0.5, Eos # (Auto) 0.2, Baso # (Auto) 0.1, Sodium 137, Potassium 4.5, Chloride 106, Carbon Dioxide 28, Anion Gap 7.5, BUN 20 H, Creatinine 1.10 H, Estimated Creat Clear 73, Estimated GFR 50 L, Est GFR ( Amer) 61, Glucose 73 L D, Calcium 8.8, Magnesium 2.2, Total Bilirubin 0.3, AST 25, ALT 12 D, Alkaline Phosphatase 71, Total Protein 6.1 L, Albumin 3.5 D, Globulin 2.6, Albumin/Globulin Ratio 1.3 I & O for Last 24 hours: Intake & Output 08/10/23 08/11/23 08/12/23 08/14/23 23:59 23:59 23:59 00:59 Intake Total 1342 / 1717 375 / 375 Output Total 0 / 0 0 / 0 Balance 1342 / 1717 375 / 375 Weight 189 lb 195 lb 202 lb 9.6 oz *Routine Abdominal Exam Abdominal: Present soft and tenderness (RUQ tenderness) Progress Note: A&P Assessment and plan (1) Abdominal pain: Status: Acute (2) Acute calculous cholecystitis: Status: Acute Assessment and plan: Plan for lap yasmine tomorrow morning. Discussed with patient. Continue abx and allow low fat diet. NPO after midnight. (3) Hypertensive heart disease: Problem details: Following with Dr. Allan and his team, blood pressure today was 134/76. Continue current therapies. Status: Acute (4) Chronic kidney disease, stage 3a: Problem details: This is been stable for actually well over a year. Will follow this closely. Status: Acute (5) Chronic GERD: Status: Acute (6) Obesity (BMI 30-39.9): Status: Acute (7) Tobacco dependence syndrome: Problem details: Discussed with the patient her need to quit smoking. Status: Acute (8) Deep venous thrombosis of lower extremity: Status: Acute (9) Warfarin anticoagulation: Problem details: Still not clear to me why this patient is on Coumadin. Yes she did have a DVT although we do not have any of those records or imaging studies to clearly define how advanced this was. Further is not clear to me that she has a coagulopathy. Will check with Dr. Allan's team. Status: Chronic (10) Family history of FAP (familial adenomatous polyposis): Problem details: s/p BCIR as a teen Status: Chronic
[2023-08-13 07:41] LABS: Basophils % 0.8 % (0.1-2.0); Eosinophils # 0.3 K/mm3 (0.0-0.4); Eosinophils % 4.9 % (0.1-12.0); Hematocrit 36.5 % (37.0-47.0); Hemoglobin 11.5 g/dL (12.2-16.2); Lymphocytes # 1.3 K/mm3 (0.7-4.5); Lymphocytes % 24.7 % (10-50); Mean Corpuscular HGB Conc 31.4 g/dL (31.8-35.4); Mean Corpuscular Hemoglobin 31.9 pg (27.0-31.2); Mean Corpuscular Volume 101.3 fl (81-99); Mean Platelet Volume 9.6 fl (7.4-10.4); Monocytes # 0.3 K/mm3 (0.1-1.0); Monocytes % 5.9 % (1.7-9.3); Neutrophils # 3.4 K/mm3 (1.8-7.8); Neutrophils % 63.5 % (37.0-80.0); Platelet Count 212 K/mm3 (142-424); Red Blood Count 3.61 M/mm3 (4.20-5.40); Red Cell Distribution Width 14.1 % (11.5-17.5); White Blood Count 5.3 K/mm3 (4.8-10.8)
[2023-08-13 07:51] LABS: Alanine Aminotransferase 12 U/L (12-78); Albumin Level 2.9 g/dl (3.5-5.0); Albumin/Globulin Ratio 1.1 (1.1-1.8); Alkaline Phosphatase 62 U/L (38-126); Anion Gap 6.5 mEq/L (5-15); Aspartate Amino Transferase 23 U/L (14-36); Bilirubin,Total 0.3 mg/dl (0.2-1.3); Blood Urea Nitrogen 21 mg/dl (7-17); Calcium 8.5 mg/dl (8.4-10.2); Carbon Dioxide 26 mmol/L (22.0-30.0); Chloride 111 mmol/L (98-107); Creatinine Clearance Estimated 84 mL/min (50-200); Estimated Glomerular Filt Rate 56 ml/min (>60); GFR (African American) 68 ML/MIN (>60); Globulin 2.7 g/dL (1.3-3.2); Glucose 104 mg/dl (74-100); INR 1.37 (0.9-1.1); Magnesium 2.2 mg/dl (1.6-2.3); Potassium 4.5 mmoL/L (3.5-5.1); Prothrombin Time 14.5 seconds (10.1-12.5); Sodium 139 mmol/L (136-145); Total Protein,Serum 5.6 g/dl (6.3-8.2)
[2023-08-13 08:00] VITALS: BP 110/68; PULSE 66; RESP 18; TEMP 36.6; O2SAT 98
[2023-08-13] MEDS: LEVOTHYROXINE 50MCG (0.05MG) TAB 50 MCG PO (08:14)
[2023-08-13] MEDS: GABAPENTIN 800MG TABLET 800 MG PO ×3 (08:14→20:10)
--- NOTE | 2023-08-13 15:50 | PC.NURSE ---
PT HAS SLEPT MOST OF SHIFT. MEDICATED WITH PRN PAIN MEDICATION X2 WITH GOOD EFFECTIVENESS. POSSIBLE LAP/OPEN CHOLECYSTECTOMY 08/12. TOLERATING DIET WELL.
[2023-08-13 16:00] VITALS: BP 126/67; PULSE 76; RESP 18; O2SAT 98
--- NOTE | 2023-08-13 17:03 | EXP.ACUTE.PN ---
Subjective *Date: 08/13/23 *Time: 17:03 Interval history: Patient more alert and oriented today. Tolerating p.o. 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 No nausea or vomiting. On room air. Medical Exam Vital signs and Labs for Last 24 Hours: Vital Signs Temp Pulse Resp BP Pulse Ox O2 Del Method 08/13/23 16:54 Room Air 08/13/23 15:00 Room Air 08/13/23 12:58 Room Air 08/13/23 11:00 Room Air 08/13/23 09:00 Room Air 08/13/23 08:00 97.8 F 66 18 110/68 98 Room Air 08/13/23 08:00 Room Air 08/13/23 07:00 Room Air 08/13/23 04:48 Room Air 08/13/23 04:00 97.5 F L 74 18 120/64 96 Room Air 08/13/23 03:00 Room Air 08/13/23 01:00 Room Air 08/12/23 23:00 Room Air 08/12/23 21:00 Room Air 08/12/23 20:00 97.6 F 72 18 102/52 L 95 Room Air 08/12/23 20:00 Room Air 08/12/23 18:31 Room Air 08/12/23 17:00 Room Air Intake and Output 08/13/23 08/13/23 08/13/23 07:59 15:59 23:59 Intake Total 2272 / 2647 Output Total 0 / 0 Balance 2272 / 2647 Intake: Intake, Oral Amount 630 / 630 Intake, Total IV Amount 0.9 % Sodium Chloride 1000ML 1, 000 ml @ 75 mls/hr IV .[id number] [facility] Rx#:[id number] Infusion Intake 1642 / 1642 0.9 % Sodium Chloride 1000ML 1, 1642 / 1642 000 ml @ 75 mls/hr IV .[id number] [facility] Rx#:[id number] Output: Output, Urine Amount 0 / 0 Other: Number of Voids Number of Unmeasured Voids 1 Number of Bowel Movements 1 Weight Patient Weight 08/14/23 00:59 Weight 91.898 kg Laboratory Results - last 24 hr 08/13/23 07:09: WBC 5.3, RBC 3.61 L, Hgb 11.5 L, Hct 36.5 L, MCV 101.3 H, MCH 31.9 H, MCHC 31.4 L, RDW 14.1, Plt Count 212, MPV 9.6, Neut % (Auto) 63.5, Lymph % (Auto) 24.7, Davison % (Auto) 5.9, Eos % (Auto) 4.9, Baso % (Auto) 0.8, Neut # (Auto) 3.4, Lymph # (Auto) 1.3, Davison # (Auto) 0.3, Eos # (Auto) 0.3, Baso # (Auto) 0.0, PT 14.5 H, INR 1.37 H, Sodium 139, Potassium 4.5, Chloride 111 H, Carbon Dioxide 26, Anion Gap 6.5, BUN 21 H, Creatinine 1.00, Estimated Creat Clear 84, Estimated GFR 56 L, Est GFR ( Amer) 68, Glucose 104 H, Calcium 8.5, Magnesium 2.2, Total Bilirubin 0.3, AST 23, ALT 12, Alkaline Phosphatase 62, Total Protein 5.6 L, Albumin 2.9 L D, Globulin 2.7, Albumin/Globulin Ratio 1.1 I & O for Labs for Last 24 Hours: Intake & Output 08/10/23 08/11/23 08/12/23 08/14/23 23:59 23:59 23:59 00:59 Intake Total 1342 / 1717 2647 / 2647 Output Total 0 / 0 0 / 0 Balance 1342 / 1717 2647 / 2647 Weight 85.729 kg 88.451 kg 91.898 kg Constitutional: Present no acute distress, obese, chronically ill appearing and cooperative Head: Present atraumatic and normocephalic ENT: Present normal exam Respiratory: Present normal respiratory effort; Absent rhonchi, wheezes or crackles Cardiac: Present Reg Rate and Rhythm GI: Present soft, tenderness (RUQ) and normal bowel sounds; Absent distention Comments:: Ostomy in place in right lower abdomen covered with sanitary napkin. No output, continent ostomy that requires cannulation daily. Extremities: Present normal inspection and full ROM Skin: Present intact; Absent erythema Neuro: Present Grossly Intact, alert, awake, oriented x 3 and moves all extremities Assessment and Plan *Assessment and plan (1) Acute calculous cholecystitis: Status: Acute Category: Surgical Code(s): K80.00 - Calculus of gallbladder with acute cholecystitis without obstruction (2) Abdominal pain: Status: Acute Qualifiers: Abdominal location: upper abdomen, unspecified Qualified Code(s): R10.10 - Upper abdominal pain, unspecified Category: Medical Code(s): R10.9 - Unspecified abdominal pain (3) Hypertensive heart disease: Problem Comment: Following with Dr. Allan and his team, blood pressure today was 134/76. Continue current therapies. Status: Acute Qualifiers: Heart failure presence: without heart failure Qualified Code(s): I11.9 - Hypertensive heart disease without heart failure Category: Medical Code(s): I11.9 - Hypertensive heart disease without heart failure (4) Chronic kidney disease, stage 3a: Problem Comment: This is been stable for actually well over a year. Will follow this closely. Status: Acute Category: Medical Code(s): N18.31 - Chronic kidney disease, stage 3a (5) Chronic GERD: Status: Acute Category: Medical Code(s): K21.9 - Gastro-esophageal reflux disease without esophagitis (6) Obesity (BMI 30-39.9): Status: Acute Category: Medical Code(s): E66.9 - Obesity, unspecified (7) Tobacco dependence syndrome: Problem Comment: Discussed with the patient her need to quit smoking. Status: Acute Category: Medical Code(s): F17.200 - Nicotine dependence, unspecified, uncomplicated (8) Deep venous thrombosis of lower extremity: Status: Acute Qualifiers: Affected thrombotic vein of extremity: unspecified vein of extremity Chronicity: unspecified Laterality: left Qualified Code(s): I82.402 - Acute embolism and thrombosis of unspecified deep veins of left lower extremity Category: Medical Code(s): I82.409 - Acute embolism and thrombosis of unspecified deep veins of unspecified lower extremity (9) Warfarin anticoagulation: Problem Comment: Still not clear to me why this patient is on Coumadin. Yes she did have a DVT although we do not have any of those records or imaging studies to clearly define how advanced this was. Further is not clear to me that she has a coagulopathy. Will check with Dr. Allan's team. Status: Chronic Category: Medical Code(s): Z79.01 - long-term (current) use of anticoagulants (10) Family history of FAP (familial adenomatous polyposis): Problem Comment: s/p BCIR as a teen Status: Chronic Category: Medical Code(s): Z83.71 - Family history of colonic polyps Plan 63-year-old female PMHX obesity, CKD, hypertension, DVT on warfarin, PAD presented to ED with about 24 hours of worsening right upper quadrant and epigastric pain. She reported it is severe and nothing tried at home will provide relief. She denies any fever, N/V. on arrival initial labs works are grossly unremarkable. CT of abdomen concerning for gallbladder distention and non obstructive cholecystitis. Imaging reviewed. Bed side US performed by ER confirmed, findings. It demonstrated anterior gallbladder wall thickening, mild pericholecystic fluid and gallstones present with positive sonographic Hadley sign consistent with acute cholecystitis. Findings discussed with ED for admission. surgeon personal care home administrator consulted. Medicine admitted. Pain stable, anticipate surgery tomorrow. Continues to require inpatient management. Problems addressed as follows: -Abdominal pain likely secondary to acute cholescystitis: Surgery consulted, agrees with acute cholecystitis. Discussed case today, recommend continuing cefepime 2 g every 12 hours. Patient will be n.p.o. at midnight for surgery in the morning Continue IV fluids given n.p.o. status. Labs pending for the morning including INR. INR today 1.4. White cell count normal at 5.3. Repeat CBC, CMP, magnesium ordered for the morning. Hydrocodone oral every 6 hours as needed for pain. LFTs normal with bilirubin 0.3, AST 23, ALT 12. Continent ileostomy -Adds complexity to patient's surgery. Currently functional. Cannulates 1-2 times a day for bowel movements. Having output daily. CKD: Creatinine 1.0, BUN 21. At patient's baseline. GERD: Continue pantoprazole 40 mg nightly. Continue gabapentin 800 mg 3 times a day for neuropathy. Continue levothyroxine 50 mcg daily for hypothyroid. Hypertension/hyperlipidemia: Holding home blood pressure regimen of atenolol, Lasix, Lipitor in the acute surgical setting and given normotension. Tobacco use disorder: Nicotine patch as needed daily Obesity: Complicates all aspects of care SCD for DVT ppx on Protonix NPO at midnight Full code
[2023-08-13 20:00] VITALS: BP 137/69; PULSE 65; RESP 16; TEMP 36.7; O2SAT 98
[2023-08-13] MEDS: NICOTINE 21MG/24HR PATCH 21 MG TD (20:10)
[2023-08-13] MEDS: PANTOPRAZOLE 40MG VIAL 40 MG IV (20:11)
[2023-08-13] MEDS: KETOROLAC 30MG/ML VIAL 30 MG IV (20:24)
--- NOTE | 2023-08-13 21:42 | PC.NURSE ---
This evening patient c/o RUQ/Epigastric pain and requested Cosby (already took QID for the day), Justin ordered Toradol because patient stated it provided relief prior, positive results per reassessing pain level. Patient also requested a heating pad however no working K-Pad machines are available in the building - patient verbalized understanding. Patient wanted a snack and ate tomato soup with chicken salad sandwich - denies any n/v
[2023-08-14] VITALS (23 sets, daily range): BP systolic 115–172; BP diastolic 57–105; PULSE 75–90; RESP 14–20; TEMP 36.1–36.7; O2SAT 92–98; BMI 37.5
[2023-08-14] MEDS: CEFEPIME HCL 2 GM in 0.9 % SODIUM CHLORIDE 100 ML IV ×2 (00:27→14:55)
[2023-08-14] MEDS: diphenhydrAMINE 25MG CAPSULE 25 MG PO (00:28)
[2023-08-14] MEDS: HYDROCODONE 10MG/APAP 325MG TAB 1 TAB PO ×3 (03:34→20:37)
[2023-08-14] MEDS: LEVOTHYROXINE 50MCG (0.05MG) TAB 50 MCG PO (06:15)
[2023-08-14 06:30] LABS: Alanine Aminotransferase 9 U/L (12-78); Albumin Level 3.2 g/dl (3.5-5.0); Albumin/Globulin Ratio 1.2 (1.1-1.8); Alkaline Phosphatase 54 U/L (38-126); Anion Gap 8.2 mEq/L (5-15); Aspartate Amino Transferase 28 U/L (14-36); Bilirubin,Total 0.5 mg/dl (0.2-1.3); Blood Urea Nitrogen 19 mg/dl (7-17); Calcium 8.5 mg/dl (8.4-10.2); Carbon Dioxide 22 mmol/L (22.0-30.0); Chloride 113 mmol/L (98-107); Creatinine Clearance Estimated 84 mL/min (50-200); Estimated Glomerular Filt Rate 56 ml/min (>60); GFR (African American) 68 ML/MIN (>60); Globulin 2.7 g/dL (1.3-3.2); Glucose 86 mg/dl (74-100); Potassium 5.2 mmoL/L (3.5-5.1); Sodium 138 mmol/L (136-145); Total Protein,Serum 5.9 g/dl (6.3-8.2)
--- NOTE | 2023-08-14 06:55 | EXP.SURG.PN ---
Subjective Patient reports: no new complaints, feels better and still having pain Exam Data for Last 24 hours Vital signs and Labs for Last 24 Hours: Temp Pulse Resp BP Pulse Ox O2 Del Method 97.8 F 75 20 130/74 98 Room Air 08/14/23 04:00 08/14/23 04:00 08/14/23 04:00 08/14/23 04:00 08/14/23 04:00 08/14/23 06:08 Laboratory Results - last 24 hr 08/13/23 07:09: WBC 5.3, RBC 3.61 L, Hgb 11.5 L, Hct 36.5 L, MCV 101.3 H, MCH 31.9 H, MCHC 31.4 L, RDW 14.1, Plt Count 212, MPV 9.6, Neut % (Auto) 63.5, Lymph % (Auto) 24.7, [place] % (Auto) 5.9, Eos % (Auto) 4.9, Baso % (Auto) 0.8, Neut # (Auto) 3.4, Lymph # (Auto) 1.3, [place] # (Auto) 0.3, Eos # (Auto) 0.3, Baso # (Auto) 0.0, PT 14.5 H, INR 1.37 H, Sodium 139, Potassium 4.5, Chloride 111 H, Carbon Dioxide 26, Anion Gap 6.5, BUN 21 H, Creatinine 1.00, Estimated Creat Clear 84, Estimated GFR 56 L, Est GFR ( Amer) 68, Glucose 104 H, Calcium 8.5, Magnesium 2.2, Total Bilirubin 0.3, AST 23, ALT 12, Alkaline Phosphatase 62, Total Protein 5.6 L, Albumin 2.9 L D, Globulin 2.7, Albumin/Globulin Ratio 1.1 08/14/23 05:49: Sodium 138, Potassium 5.2 H, Chloride 113 H, Carbon Dioxide 22, Anion Gap 8.2, BUN 19 H, Creatinine 1.00, Estimated Creat Clear 84, Estimated GFR 56 L, Est GFR ( Amer) 68, Glucose 86, Calcium 8.5, Total Bilirubin 0.5, AST 28, ALT 9 L, Alkaline Phosphatase 54, Total Protein 5.9 L, Albumin 3.2 L D, Globulin 2.7, Albumin/Globulin Ratio 1.2 I & O for Last 24 hours: Intake & Output 08/11/23 08/12/23 08/13/23 08/14/23 10:59 10:59 11:59 11:59 Intake Total 2842 / 2842 Output Total 0 / 0 Balance 2842 / 2842 Weight 204 lb 2 oz Constitutional Constitutional: no acute distress *Routine Respiratory Exam Respiratory: Absent respiratory distress *Routine Cardiovascular Exam Cardiovascular: Absent tachycardia *Routine Abdominal Exam Abdominal: Present soft and tenderness (RUQ) Progress Note: A&P Assessment and plan (1) Acute calculous cholecystitis: Status: Acute Assessment and plan: 2 OR today for laparoscopic (possible open) cholecystectomy. The patient is aware of increased risk of operative intervention secondary to her surgical history. I have discussed the risks and benefits including, but not limited to: Bleeding Infection Damage to surrounding tissue Inherent risks of sedation The patient agrees to proceed.
[2023-08-14 07:11] LABS: Basophils # 0.1 K/mm3 (0-0.2); Basophils % 1.2 % (0.1-2.0); Eosinophils # 0.3 K/mm3 (0.0-0.4); Eosinophils % 5.4 % (0.1-12.0); Hematocrit 35.6 % (37.0-47.0); Hemoglobin 11.6 g/dL (12.2-16.2); Lymphocytes # 1.1 K/mm3 (0.7-4.5); Lymphocytes % 20.6 % (10-50); Mean Corpuscular HGB Conc 32.5 g/dL (31.8-35.4); Mean Corpuscular Hemoglobin 33.4 pg (27.0-31.2); Mean Corpuscular Volume 102.7 fl (81-99); Mean Platelet Volume 9.7 fl (7.4-10.4); Monocytes # 0.3 K/mm3 (0.1-1.0); Monocytes % 5.5 % (1.7-9.3); Neutrophils # 3.5 K/mm3 (1.8-7.8); Neutrophils % 67.4 % (37.0-80.0); Platelet Count 181 K/mm3 (142-424); Red Blood Count 3.47 M/mm3 (4.20-5.40); Red Cell Distribution Width 14.1 % (11.5-17.5); White Blood Count 5.2 K/mm3 (4.8-10.8)
[2023-08-14 07:13] LABS: Magnesium 2.1 mg/dl (1.6-2.3)
[2023-08-14 08:19] LABS: INR 1.18 (0.9-1.1); Prothrombin Time 12.6 seconds (10.1-12.5)
[2023-08-14] MEDS: GABAPENTIN 800MG TABLET 800 MG PO ×3 (08:47→20:38)
--- NOTE | 2023-08-14 10:06 | EXP.ANES.CKL ---
[facility] Disclaimer: The information contained in this section may have been updated after the patient was seen, as this information can be updated by other users. Medical History Abscess of buttock, left Anxiety Daytime somnolence DVT (deep venous thrombosis) Edema Encounter for pre-operative cardiovascular clearance HTN (hypertension) Hypothyroid LUQ pain Obstructive Sleep Apnea-Hypopnea Syndrome Still need to discuss this with this patient. Warfarin anticoagulation Still not clear to me why this patient is on Coumadin. Yes she did have a DVT although we do not have any of those records or imaging studies to clearly define how advanced this was. Further is not clear to me that she has a coagulopathy. Will check with Dr. Allan's team. Surgical History History of back surgery History of knee surgery History of knee surgery History of left hip replacement History of right hip replacement Family History Other Family history of heart disease Social History (Updated 08/12/23 @ 03:33 by Bethanie Carter RN) Smoking Status: Current every day smoker tobacco type: cigarettes packs per day: 1 alcohol intake: never substance use type: denies use current occupational status: disabled and other Travel in the last 8 weeks: None caffeine: Yes [facility] Anesthesia Checklist Patient Identification Patient Identification: Arm Band, Family and Verbal (Name & ) Structural Data Admitted From: Inpatient Planned Operative Procedure/s: Andreina. Prudence Consent for Planned Operative Procedure(s) Verified: Yes Verified Documents: Surgical Consent and History and Physical NPO Status Verified Time NPO: 19:00 Chart Verification Results Verified: CBC, BMP, PT, PTT, INR, ECG and Chest Xray Additional verifications Patient : No Anesthesia Reactions: Yes (ANXIOUS) Cardiovascular Assessment Heart Sounds: S1 & S2 Pulse Rhythm: Irregular Peripheral Edema: No Airway Assessment Mallampati Score:: Class III C-Spine Mobility Assessed: Yes TMJ Mobility Assessed: Yes Dentition: Edentulous Neurological Assessment Level of Consciousness: Awake, Alert, Appropriate and Follows Commands Hx Seizures: No Numbness or tingling in extremities: No Anesthesia Plan Anesthesia Risk discussed: No Anesthesia Plan: Verified ASA Class: III Anesthesia Type: General
[2023-08-14] MEDS: CLINDAMYCIN PHOSPHATE/D5W 900 MG/50 ML PIGGYBACK 100 MG IV (10:30)
[2023-08-14] MEDS: LIDOCAINE 1% 20ML MDV 20 ML (10:40)
--- NOTE | 2023-08-14 13:40 | P.PNANES_ITS ---
[facility] Anesthesia Record Part I Anesthesia Record I Intake, IV Amount: 1,500 Hydration: Adequate Estimated blood loss (mL): 50 Urine output (mL): 0 Blood Pressure: 147/86 SaO2: 96 Pulse Rate: 87 Airway Patency: Patent Respiratory Rate: 16 Temperature: 97 F Patient is:: Awake Stable to PACU at:: 13:37
--- NOTE | 2023-08-14 13:47 | P.OP_ITS ---
Date of procedure: 08/14/23 Pre-op Diagnosis:: Acute calculus cholecystitis Post-op Diagnosis:: Same Procedure performed:: Laparoscopic cholecystectomy Significant lysis of adhesions Surgeon:: Jerrod Amaya MD DOMESTIC TECHNICIAN:: Christofer Navas Anesthesia: GETA Estimated blood loss (mL): 25 Operative findings:: Severe acute cholecystitis with serosal weeping Profound adhesions throughout anterior abdominal wall secondary to prior total colectomy/ileostomy, and subsequent revision to continent intestinal reservoir Multiple loops of small bowel adhesed to anterior abdominal wall Severe adhesions of stomach to anterior abdominal wall Very few areas of anterior abdominal wall spared the above-stated profound adhesions Dome down approach utilized with Endoloops secondary to above findings No obvious injury noted to small bowel (particularly continent intestinal reserv oir) López-Ratliff drains placed in gallbladder fossa secondary to above findings Operative note:: After informed consent was obtained, the patient was taken to the operating room and placed in the supine position. General anesthesia was induced and her abdomen was prepped and draped in a sterile fashion. After infiltration with local anesthetic a small stab incision was made in the left upper quadrant. A Veress needle was placed in position. The abdomen was insufflated. A 5 mm optical trocar was placed in the left mid anterior/lateral abdominal wall (flank). Immediately apparent upon camera placement was that multiple loops of small bowel and stomach were adhered to the anterior abdominal wall. The trocar site did not appear to be involved; however, essentially no other region was spared. A 5 mm optical trocar was then placed in the right upper quadrant. Once again, the trocar insertion site did not appear to involve an adhesed loop of bowel; however, little sparing of the surrounding region was noted. An additional 5 mm trocar was carefully placed at a small 2 cm site of sparing. Careful blunt dissection, sharp dissection, and harmonic jessica dissection was then utilized to free multiple adhesions along the epigastric region and then approaching the left flank trocar site. Once the left flank trocar was visualized, confirmation was made that the trocar did not encroach the small bowel. The continent intestinal reservoir site was visualized. No obvious injury to the small bowel that had been utilized to create the reservoir was noted. An additional 12 mm trocar was placed in the subxiphoid position after additional lysis of adhesions. The gallbladder was elevated up and over the liver margin. Severe acute inflammatory changes and serosal weeping noted. The infundibulum was severely thickened and dissection in this region was very difficult. The decision was made to proceed with a dome down approach secondary to the above findings. Harmonic jessica were then utilized to dissect the gallbladder away from the liver margin. Endoloops (x 2) were utilized to control the infundibulum. The gallbladder was transected beyond the site of Endoloop control with harmonic jessica and was then placed in a retrieval bag before removal through the subxiphoid trocar site. The right upper quadrant was thoroughly irrigated. No active bleeding or bile leak was noted. #10 flat López-Ratliff drains (x 2) were placed in the gallbladder fossa and exited through the right upper quadrant 5 mm trocar sites. The drains were secured with 3-0 nylon. Fascia at the subxiphoid trocar site was reapproximated utilizing 0 Ethibond. The remaining trocars were removed. All wounds were irrigated and skin was closed with 4-0 Monocryl in a mattress fashion to facilitate hemostasis. The patient's anesthetic agents were reversed and extubation was completed prior to transfer to recovery in stable condition. Condition: stable Disposition: PACU Specimens:: Gallbladder and contents Complications:: No immediate
[2023-08-14] MEDS: HYDROMORPHONE 2MG/ML SYRINGE 0.5 MG IV ×4 (13:50→14:21)
[2023-08-14] MEDS: PROMETHAZINE HCL 25MG/ML 1ML VIAL 6.25 MG IV (13:54)
[2023-08-14] MEDS: HYDROMORPHONE 2MG/ML SYRINGE 1 MG IV (14:56)
--- NOTE | 2023-08-14 15:09 | EXP.ACUTE.PN ---
Subjective *Date: 08/14/23 *Time: 17:00 Interval history: Patient taken for surgery. Tolerated procedure well but was extensive due to her previous abdominal surgeries. Afebrile. White cell count stable. No nausea or vomiting. Having pain after procedure. Medical Exam Vital signs and Labs for Last 24 Hours: Vital Signs Temp Pulse Pulse Resp BP BP Pulse Ox 08/15/23 08:00 97.9 F 80 18 110/57 L 98 08/15/23 07:00 08/15/23 05:00 08/15/23 04:00 98 F 91 H 16 122/61 96 08/15/23 03:00 08/15/23 01:00 08/15/23 00:00 98 F 88 16 121/70 94 L 08/14/23 23:00 08/14/23 21:00 08/14/23 20:48 08/14/23 20:36 98.0 F 90 18 137/57 L 94 L 08/14/23 20:25 98.0 F 90 16 137/57 L 94 L 08/14/23 19:25 98.0 F 81 16 137/76 95 08/14/23 19:00 08/14/23 18:25 87 14 131/69 93 L 08/14/23 17:25 89 18 128/82 92 L 08/14/23 17:00 08/14/23 16:25 84 16 120/84 93 L 08/14/23 16:07 18 08/14/23 15:55 79 16 123/74 94 L 08/14/23 15:25 81 16 155/83 H 95 08/14/23 15:00 08/14/23 14:55 79 16 157/75 H 94 L 08/14/23 14:27 77 18 166/92 H 97 08/14/23 14:25 82 17 146/91 H 92 L 08/14/23 14:17 77 18 126/64 94 L 08/14/23 14:10 80 16 154/77 H 95 08/14/23 14:07 76 18 172/105 H 96 08/14/23 13:57 78 18 145/80 H 97 08/14/23 13:55 76 14 159/77 H 95 08/14/23 13:47 81 18 159/98 H 97 08/14/23 13:41 97 F L 87 16 147/86 H 08/14/23 13:40 98.1 F 82 16 152/85 H 95 08/14/23 13:37 97.0 F L 83 18 156/94 H 96 O2 Del Method 08/15/23 08:00 Room Air 08/15/23 07:00 Room Air 08/15/23 05:00 Room Air 08/15/23 04:00 08/15/23 03:00 Room Air 08/15/23 01:00 Room Air 08/15/23 00:00 Room Air 08/14/23 23:00 Room Air 08/14/23 21:00 Room Air 08/14/23 20:48 Room Air 08/14/23 20:36 Room Air 08/14/23 20:25 Room Air 08/14/23 19:25 Room Air 08/14/23 19:00 Room Air 08/14/23 18:25 Room Air 08/14/23 17:25 Room Air 08/14/23 17:00 Room Air 08/14/23 16:25 Room Air 08/14/23 16:07 08/14/23 15:55 Room Air 08/14/23 15:25 Room Air 08/14/23 15:00 Room Air 08/14/23 14:55 Room Air 08/14/23 14:27 Room Air 08/14/23 14:25 Room Air 08/14/23 14:17 Room Air 08/14/23 14:10 Room Air 08/14/23 14:07 Room Air 08/14/23 13:57 Room Air 08/14/23 13:55 Room Air 08/14/23 13:47 Room Air 08/14/23 13:41 08/14/23 13:40 Room Air 08/14/23 13:37 Room Air Intake and Output 08/14/23 08/15/23 08/15/23 23:59 07:59 15:59 Intake Total 535 / 2155 Output Total 50 / 50 30 / 30 Balance 485 / 2105 -30 / 30 Intake: Intake, Oral Amount 535 / 655 Intake, Total IV Amount 0 / 1500 Output: Output, Urine Amount 0 / 0 0 / 0 Output, Drainage Amount 50 / 50 30 / 30 ABDOMEN 50 / 50 30 / 30 Other: Number of Voids 1 Number of Unmeasured Voids 1 1 Number of Bowel Movements 1 Weight 95.118 kg Patient Weight 08/15/23 23:59 Weight 95.118 kg Laboratory Results - last 24 hr 08/15/23 06:05: WBC 9.9 D, RBC 3.51 L, Hgb 11.8 L, Hct 35.9 L, MCV 102.3 H, MCH 33.8 H, MCHC 33.0, RDW 14.1, Plt Count 212, MPV 10.8 H, Neut % (Auto) 83.1 H, Lymph % (Auto) 10.9, [place] % (Auto) 5.4, Eos % (Auto) 0.2, Baso % (Auto) 0.4, Neut # (Auto) 8.2 H, Lymph # (Auto) 1.1, [place] # (Auto) 0.5, Eos # (Auto) 0.0, Baso # (Auto) 0.0, Sodium 136, Potassium 4.6, Chloride 107, Carbon Dioxide 25, Anion Gap 8.6, BUN 15, Creatinine 0.90, Estimated Creat Clear 86, Estimated GFR 63, Est GFR ( Amer) 77, Glucose 152 H, Calcium 8.4, Total Bilirubin 0.3, AST 55 H D, ALT 37 D, Alkaline Phosphatase 65, Total Protein 5.9 L, Albumin 3.4 L, Globulin 2.5, Albumin/Globulin Ratio 1.4 I & O for Labs for Last 24 Hours: Intake & Output 08/12/23 08/13/23 08/14/23 08/15/23 22:59 23:59 23:59 23:59 Intake Total 2155 / 2155 Output Total 50 / 50 / Balance 2104 / 2104 - / 30 Weight 92.59 kg 95.118 kg Constitutional: Present no acute distress, obese, chronically ill appearing and cooperative Head: Present atraumatic and normocephalic ENT: Present normal exam Respiratory: Present normal respiratory effort; Absent rhonchi, wheezes or crackles Cardiac: Present Reg Rate and Rhythm GI: Present soft, tenderness (RUQ) and diminished bowel sounds; Absent distention Comments:: Ostomy in place in right lower abdomen, KRISTINE drain in place. Surgical bandage clean dry and intact Extremities: Present normal inspection and full ROM Skin: Present intact; Absent erythema Neuro: Present Grossly Intact, alert, awake, oriented x 3 and moves all extremities Assessment and Plan *Assessment and plan (1) Acute calculous cholecystitis: Status: Acute Category: Surgical Code(s): K80.00 - Calculus of gallbladder with acute cholecystitis without obstruction (2) Abdominal pain: Status: Acute Qualifiers: Abdominal location: upper abdomen, unspecified Qualified Code(s): R10.10 - Upper abdominal pain, unspecified Category: Medical Code(s): R10.9 - Unspecified abdominal pain (3) Hypertensive heart disease: Problem Comment: Following with Dr. Allan and his team, blood pressure today was 134/76. Continue current therapies. Status: Acute Qualifiers: Heart failure presence: without heart failure Qualified Code(s): I11.9 - Hypertensive heart disease without heart failure Category: Medical Code(s): I11.9 - Hypertensive heart disease without heart failure (4) Chronic kidney disease, stage 3a: Problem Comment: This is been stable for actually well over a year. Will follow this closely. Status: Acute Category: Medical Code(s): N18.31 - Chronic kidney disease, stage 3a (5) Chronic GERD: Status: Acute Category: Medical Code(s): K21.9 - Gastro-esophageal reflux disease without esophagitis (6) Obesity (BMI 30-39.9): Status: Acute Category: Medical Code(s): E66.9 - Obesity, unspecified (7) Tobacco dependence syndrome: Problem Comment: Discussed with the patient her need to quit smoking. Status: Acute Category: Medical Code(s): F17.200 - Nicotine dependence, unspecified, uncomplicated (8) Deep venous thrombosis of lower extremity: Status: Acute Qualifiers: Affected thrombotic vein of extremity: unspecified vein of extremity Chronicity: unspecified Laterality: left Qualified Code(s): I82.402 - Acute embolism and thrombosis of unspecified deep veins of left lower extremity Category: Medical Code(s): I82.409 - Acute embolism and thrombosis of unspecified deep veins of unspecified lower extremity (9) Warfarin anticoagulation: Problem Comment: Still not clear to me why this patient is on Coumadin. Yes she did have a DVT although we do not have any of those records or imaging studies to clearly define how advanced this was. Further is not clear to me that she has a coagulopathy. Will check with Dr. Allan's team. Status: Chronic Category: Medical Code(s): Z79.01 - MCFP (current) use of anticoagulants (10) Family history of FAP (familial adenomatous polyposis): Problem Comment: s/p BCIR as a teen Status: Chronic Category: Medical Code(s): Z83.71 - Family history of colonic polyps Plan 63-year-old female PMHX obesity, CKD, hypertension, DVT on warfarin, PAD presented to ED with about 24 hours of worsening right upper quadrant and epigastric pain. She reported it is severe and nothing tried at home will provide relief. She denies any fever, N/V. on arrival initial labs works are grossly unremarkable. CT of abdomen concerning for gallbladder distention and non obstructive cholecystitis. Imaging reviewed. Bed side US performed by ER confirmed, findings. It demonstrated anterior gallbladder wall thickening, mild pericholecystic fluid and gallstones present with positive sonographic Hadley sign consistent with acute cholecystitis. Findings discussed with ED for admission. surgeon warning coordination meteorologist consulted. Medicine admitted. Surgery consulted, taken for cholecystectomy today. Procedure was complex, will necessitate continued monitoring. Patient hemodynamically stable but having significant postop pain. Problems addressed as follows: -Abdominal pain secondary to acute cholescystitis: Surgery consulted, agrees with acute cholecystitis. Discussed case today, status post cholecystectomy. Will continue antibiotics and pain control. KRISTINE in place, necessitating monitoring. Slow advancement of diet. White cell count normal at 5.2, hemoglobin 11.6. INR 1.2. Repeat CBC, CMP, magnesium ordered for the morning. Hydrocodone 10 mg oral every 6 hours as needed for pain. Given breakthrough pain from surgery, initiate Dilaudid 2 mg every 2 hours as needed for severe pain. Monitor for toxicity. Continent ileostomy -Adds complexity to patient's surgery. Currently functional. Cannulates 1-2 times a day for bowel movements. Having output daily. CKD: Creatinine 1.0, BUN 14. At patient's baseline. GERD: Continue pantoprazole 40 mg nightly. Continue gabapentin 800 mg 3 times a day for neuropathy. Continue levothyroxine 50 mcg daily for hypothyroid. Hypertension/hyperlipidemia: Holding home blood pressure regimen of atenolol, Lasix, Lipitor in the acute surgical setting and given normotension. Tobacco use disorder: Nicotine patch as needed daily Obesity: Complicates all aspects of care SCD for DVT ppx on Protonix Full code
--- NOTE | 2023-08-14 16:06 | EXP.ANES.II ---
[facility] Anesthesia Record Part II Anesthesia Record Part II Discharge Time: 14:27 Destination: Medical Surgical Department PACU nurse assessment reviewed?: Yes Patient Condition:: Good Anesthesia Complications:: None Swallowing reflex intact?: Yes Airway Patency: Patent Cyanosis?: No Blood Pressure: 166/92 SaO2: 97 Respiratory Rate: 18 Pulse Rate: 77 Temperature: 97 F Mental Status: Alert & Oriented Pain level:: 4 Nausea and/or vomitting:: None Intake, IV Amount: 0 Hydration: Adequate
[2023-08-14] MEDS: HYDROMORPHONE 2MG/ML SYRINGE 2 MG IV ×2 (18:34→21:31)
[2023-08-14] MEDS: PANTOPRAZOLE 40MG VIAL 40 MG IV (20:39)
[2023-08-15] VITALS: BP 121/70; PULSE 88; RESP 16; TEMP 36.6; O2SAT 94
[2023-08-15] MEDS: CEFEPIME HCL 2 GM in 0.9 % SODIUM CHLORIDE 100 ML IV ×3 (00:43→16:31)
[2023-08-15] MEDS: HYDROMORPHONE 2MG/ML SYRINGE 2 MG IV ×6 (00:44→20:27)
[2023-08-15] MEDS: SODIUM CHLORIDE 0.9% 10ML FLUSH SYRINGE 10 ML IV (02:44)
[2023-08-15 04:00] VITALS: BP 122/61; PULSE 91; RESP 16; TEMP 36.6; O2SAT 96; BMI 38.5
[2023-08-15] MEDS: LEVOTHYROXINE 50MCG (0.05MG) TAB 50 MCG PO (06:29)
[2023-08-15 07:27] LABS: Alanine Aminotransferase 37 U/L (12-78); Albumin Level 3.4 g/dl (3.5-5.0); Albumin/Globulin Ratio 1.4 (1.1-1.8); Alkaline Phosphatase 65 U/L (38-126); Anion Gap 8.6 mEq/L (5-15); Aspartate Amino Transferase 55 U/L (14-36); Bilirubin,Total 0.3 mg/dl (0.2-1.3); Blood Urea Nitrogen 15 mg/dl (7-17); Calcium 8.4 mg/dl (8.4-10.2); Carbon Dioxide 25 mmol/L (22.0-30.0); Chloride 107 mmol/L (98-107); Creatinine Clearance Estimated 86 mL/min (50-200); Estimated Glomerular Filt Rate 63 ml/min (>60); GFR (African American) 77 ML/MIN (>60); Globulin 2.5 g/dL (1.3-3.2); Glucose 152 mg/dl (74-100); Potassium 4.6 mmoL/L (3.5-5.1); Sodium 136 mmol/L (136-145); Total Protein,Serum 5.9 g/dl (6.3-8.2)
[2023-08-15 08:00] VITALS: BP 110/57; PULSE 80; RESP 18; TEMP 36.6; O2SAT 98
[2023-08-15] MEDS: GABAPENTIN 800MG TABLET 800 MG PO ×3 (08:10→20:27)
[2023-08-15] MEDS: HYDROCODONE 10MG/APAP 325MG TAB 1 TAB PO ×4 (08:11→20:25)
--- NOTE | 2023-08-15 08:13 | EXP.SURG.PN ---
Subjective Patient reports: feels better Exam Data for Last 24 hours Vital signs and Labs for Last 24 Hours: Temp Pulse Resp BP Pulse Ox O2 Del Method 98 F 91 H 16 122/61 96 Room Air 08/15/23 04:00 08/15/23 04:00 08/15/23 04:00 08/15/23 04:00 08/15/23 04:00 08/15/23 07:00 Laboratory Results - last 24 hr 08/14/23 07:44: PT 12.6 H, INR 1.18 H 08/15/23 06:05: Sodium 136, Potassium 4.6, Chloride 107, Carbon Dioxide 25, Anion Gap 8.6, BUN 15, Creatinine 0.90, Estimated Creat Clear 86, Estimated GFR 63, Est GFR ( Amer) 77, Glucose 152 H, Calcium 8.4, Total Bilirubin 0.3, AST 55 H D, ALT 37 D, Alkaline Phosphatase 65, Total Protein 5.9 L, Albumin 3.4 L, Globulin 2.5, Albumin/Globulin Ratio 1.4 I & O for Last 24 hours: Intake & Output 08/12/23 08/13/23 08/14/23 08/15/23 10:59 11:59 11:59 11:59 Intake Total 2842 / 2842 2034 Output Total 0 / 0 80 / 80 Balance 2842 / 2842 1954 Weight 204 lb 2 oz 209 lb 11.2 oz Constitutional Constitutional: no acute distress *Routine Respiratory Exam Respiratory: Absent respiratory distress *Routine Cardiovascular Exam Cardiovascular: Absent tachycardia *Routine Abdominal Exam Abdominal: Present soft Comments: Dressings intact. Serosanguineous drainage from López-Sherri. No spreading cellulitis. Progress Note: A&P Assessment and plan (1) Acute calculous cholecystitis: Status: Acute Assessment and plan: Overall, doing well status post laparoscopic cholecystectomy with extensive lysis of adhesions F/U AM labs Slowly advance diet
[2023-08-15 08:19] LABS: Basophils % 0.4 % (0.1-2.0); Eosinophils % 0.2 % (0.1-12.0); Hematocrit 35.9 % (37.0-47.0); Hemoglobin 11.8 g/dL (12.2-16.2); Lymphocytes # 1.1 K/mm3 (0.7-4.5); Lymphocytes % 10.9 % (10-50); Mean Corpuscular Hemoglobin 33.8 pg (27.0-31.2); Mean Corpuscular Volume 102.3 fl (81-99); Mean Platelet Volume 10.8 fl (7.4-10.4); Monocytes # 0.5 K/mm3 (0.1-1.0); Monocytes % 5.4 % (1.7-9.3); Neutrophils # 8.2 K/mm3 (1.8-7.8); Neutrophils % 83.1 % (37.0-80.0); Platelet Count 212 K/mm3 (142-424); Red Blood Count 3.51 M/mm3 (4.20-5.40); Red Cell Distribution Width 14.1 % (11.5-17.5); White Blood Count 9.9 K/mm3 (4.8-10.8)
[2023-08-15] MEDS: ENOXAPARIN 100MG/ML SYRINGE 95 MG SQ ×2 (09:22→20:26)
[2023-08-15] MEDS: NICOTINE 21MG/24HR PATCH 21 MG TD (09:35)
[2023-08-15] MEDS: FUROSEMIDE 40 MG TABLET PO (10:35)
[2023-08-15 10:54] VITALS: BMI 38.5
[2023-08-15 12:00] VITALS: BP 123/71; PULSE 66; RESP 20; TEMP 36.8; O2SAT 93
--- NOTE | 2023-08-15 14:24 | EXP.PN ---
Subjective *Date: 08/15/23 *Time: 14:24 Interval history: Patient is seen at bedside, complains of discomfort in abdomen, denied CP, SOB Exam Data for Last 24 hours Vital signs and Labs for Last 24 Hours: Temp Pulse Resp BP Pulse Ox O2 Del Method 98.3 F 66 20 123/71 93 L Room Air 08/15/23 12:00 08/15/23 12:00 08/15/23 12:00 08/15/23 12:00 08/15/23 12:00 08/15/23 13:00 Laboratory Results - last 24 hr 08/15/23 06:05: WBC 9.9 D, RBC 3.51 L, Hgb 11.8 L, Hct 35.9 L, MCV 102.3 H, MCH 33.8 H, MCHC 33.0, RDW 14.1, Plt Count 212, MPV 10.8 H, Neut % (Auto) 83.1 H, Lymph % (Auto) 10.9, [place] % (Auto) 5.4, Eos % (Auto) 0.2, Baso % (Auto) 0.4, Neut # (Auto) 8.2 H, Lymph # (Auto) 1.1, [place] # (Auto) 0.5, Eos # (Auto) 0.0, Baso # (Auto) 0.0, Sodium 136, Potassium 4.6, Chloride 107, Carbon Dioxide 25, Anion Gap 8.6, BUN 15, Creatinine 0.90, Estimated Creat Clear 86, Estimated GFR 63, Est GFR ( Amer) 77, Glucose 152 H, Calcium 8.4, Total Bilirubin 0.3, AST 55 H D, ALT 37 D, Alkaline Phosphatase 65, Total Protein 5.9 L, Albumin 3.4 L, Globulin 2.5, Albumin/Globulin Ratio 1.4 I & O for Last 24 hours: Intake & Output 08/12/23 08/13/23 08/14/23 08/15/23 22:59 23:59 23:59 23:59 Intake Total 2155 / 2155 535 / 535 Output Total 50 / 50 30 / 30 Balance 2105 / 2105 505 / 505 Weight 92.59 kg 95.11 kg Constitutional Constitutional: no acute distress *Routine HEENT Exam Head: Present normocephalic Eye: Present EOMI and PERRL ENT: Present mucous membranes moist *Routine Neck Exam Neck: Present supple; Absent lymphadenopathy *Routine Respiratory Exam Respiratory: Present CTA bilaterally *Routine Cardiovascular Exam Cardiovascular: Present RRR *Routine Abdominal Exam Abdominal: Present soft and normoactive bowel sounds Comments: mild tenderness noted *Routine Extremities Exam Extremities: Absent cyanosis, clubbing or edema *Routine Skin Exam Skin: Present warm; Absent rash *Routine Neurological Exam Neurological: Present alert and oriented X3 Assessment and Plan *Assessment and plan (1) Acute calculous cholecystitis: Status: Acute Category: Surgical Code(s): K80.00 - Calculus of gallbladder with acute cholecystitis without obstruction (2) Abdominal pain: Status: Acute Qualifiers: Abdominal location: upper abdomen, unspecified Qualified Code(s): R10.10 - Upper abdominal pain, unspecified Category: Medical Code(s): R10.9 - Unspecified abdominal pain (3) Hypertensive heart disease: Problem Comment: Following with Dr. Allan and his team, blood pressure today was 134/76. Continue current therapies. Status: Acute Qualifiers: Heart failure presence: without heart failure Qualified Code(s): I11.9 - Hypertensive heart disease without heart failure Category: Medical Code(s): I11.9 - Hypertensive heart disease without heart failure (4) Chronic kidney disease, stage 3a: Problem Comment: This is been stable for actually well over a year. Will follow this closely. Status: Acute Category: Medical Code(s): N18.31 - Chronic kidney disease, stage 3a (5) Chronic GERD: Status: Acute Category: Medical Code(s): K21.9 - Gastro-esophageal reflux disease without esophagitis (6) Obesity (BMI 30-39.9): Status: Acute Category: Medical Code(s): E66.9 - Obesity, unspecified (7) Tobacco dependence syndrome: Problem Comment: Discussed with the patient her need to quit smoking. Status: Acute Category: Medical Code(s): F17.200 - Nicotine dependence, unspecified, uncomplicated (8) Deep venous thrombosis of lower extremity: Status: Acute Qualifiers: Affected thrombotic vein of extremity: unspecified vein of extremity Chronicity: unspecified Laterality: left Qualified Code(s): I82.402 - Acute embolism and thrombosis of unspecified deep veins of left lower extremity Category: Medical Code(s): I82.409 - Acute embolism and thrombosis of unspecified deep veins of unspecified lower extremity (9) Warfarin anticoagulation: Problem Comment: Still not clear to me why this patient is on Coumadin. Yes she did have a DVT although we do not have any of those records or imaging studies to clearly define how advanced this was. Further is not clear to me that she has a coagulopathy. Will check with Dr. Allan's team. Status: Chronic Category: Medical Code(s): Z79.01 - exterminator helper (current) use of anticoagulants (10) Family history of FAP (familial adenomatous polyposis): Problem Comment: s/p BCIR as a teen Status: Chronic Category: Medical Code(s): Z83.71 - Family history of colonic polyps Plan 63-year-old female PMHX obesity, CKD, hypertension, DVT on warfarin, PAD presented to ED with about 24 hours of worsening right upper quadrant and epigastric pain. -Abdominal pain secondary to acute cholescystitis: s/p cholecystenctomy per GS advance diet as tolerated GS following Hydrocodone 10 mg oral every 6 hours as needed for pain Continent ileostomy Cannulates 1-2 times a day for bowel movements CKD: Creatinine 1.0, BUN 14. At patient's baseline. GERD: Continue pantoprazole 40 mg nightly. Continue gabapentin 800 mg 3 times a day for neuropathy. Continue levothyroxine 50 mcg daily for hypothyroid. Hypertension/hyperlipidemia: Holding home blood pressure regimen of atenolol, Lasix, Lipitor in the acute surgical setting and given normotension. Tobacco use disorder: Nicotine patch as needed daily Obesity: Complicates all aspects of care on Protonix Full code potential DC for tomorrow, resume DVT PPx with lovenox, on home coumadin, check INR tomorrow
[2023-08-15 16:00] VITALS: BP 124/74; PULSE 87; RESP 18; TEMP 36.6; O2SAT 98
[2023-08-15] MEDS: NYSTATIN CREAM 30GM/TUBE TP ×2 (16:32→20:43)
--- NOTE | 2023-08-15 16:51 | PC.NURSE ---
A&OX4. TOLERATING RA WELL. AMBULATES TO THE BATHROOM, STANDBY ASSIST. PT HAS HAD GOOD U/O AND A LARGE BM THROUGH [facility] WHICH PT TAKES CARE OF HERSELF. DRESSING KEPT OVER STOMA TO R LOWER ABD-CDI. MIDLINE INCISION PRESENT WITH 2 KRISTINE DRAINS PRESENT, NEW ABD PAD PLACED OVER DRAIN SITES D/T MODERATE AMOUNT OF SEROSANG DRAINAGE. KRISTINE DRAINS WITH SMALL AMOUNT OF SEROSANG FLUID OUT. WILL EMPTY AT END OF SHIFT. PT HAS C/O INTERMITTENT ABD PAIN T/O SHIFT, TX PER AUG, EFFECTIVENESS NOTED. PT IN GOOD SPIRITS WITH LARGE APPETITE, TOLERATING WELL. PT IS PASSING LOTS OF GAS WELL. HAS RESTED T/O DAY. HAS C/O YEAST INFECTION SYMPTOMS-MD ORDERED NYSTATIN. PT HAS ASLO C/O MOISTURE AND IRRITATION UNDER BREASTS. AREA CLEANED WITH SOAP, DRIED, AND POWDER APPLIED. NO OTHER NEEDS OR C/O NOTED THUS FAR THIS SHIFT. VSS.
[2023-08-15 20:00] VITALS: BP 129/73; PULSE 88; RESP 16; TEMP 36.7; O2SAT 96
[2023-08-15] MEDS: PANTOPRAZOLE 40MG VIAL 40 MG IV (20:27)
[2023-08-16] VITALS: BP 133/93; PULSE 91; RESP 16; TEMP 36.7; O2SAT 96
[2023-08-16] MEDS: CEFEPIME HCL 2 GM in 0.9 % SODIUM CHLORIDE 100 ML IV ×2 (00:06→08:36)
[2023-08-16] MEDS: HYDROMORPHONE 2MG/ML SYRINGE 2 MG IV ×3 (00:07→07:32)
[2023-08-16 04:00] VITALS: BP 111/50; PULSE 89; RESP 16; TEMP 36.8; O2SAT 97; BMI 39.1
[2023-08-16] MEDS: LEVOTHYROXINE 50MCG (0.05MG) TAB 50 MCG PO (06:15)
[2023-08-16 07:14] LABS: Basophils # 0.1 K/mm3 (0-0.2); Basophils % 0.9 % (0.1-2.0); Eosinophils # 0.3 K/mm3 (0.0-0.4); Eosinophils % 4.3 % (0.1-12.0); Hematocrit 34.1 % (37.0-47.0); Lymphocytes # 1.7 K/mm3 (0.7-4.5); Lymphocytes % 24.4 % (10-50); Mean Corpuscular HGB Conc 32.3 g/dL (31.8-35.4); Mean Corpuscular Hemoglobin 32.4 pg (27.0-31.2); Mean Corpuscular Volume 100.5 fl (81-99); Mean Platelet Volume 9.8 fl (7.4-10.4); Monocytes # 0.4 K/mm3 (0.1-1.0); Monocytes % 6.1 % (1.7-9.3); Neutrophils # 4.5 K/mm3 (1.8-7.8); Neutrophils % 64.2 % (37.0-80.0); Platelet Count 183 K/mm3 (142-424); Red Cell Distribution Width 14.2 % (11.5-17.5); White Blood Count 7.1 K/mm3 (4.8-10.8)
[2023-08-16 07:29] LABS: Alanine Aminotransferase 27 U/L (12-78); Albumin Level 3.1 g/dl (3.5-5.0); Albumin/Globulin Ratio 1.2 (1.1-1.8); Alkaline Phosphatase 69 U/L (38-126); Anion Gap 7.2 mEq/L (5-15); Aspartate Amino Transferase 36 U/L (14-36); Bilirubin,Total 0.3 mg/dl (0.2-1.3); Blood Urea Nitrogen 17 mg/dl (7-17); Calcium 8.3 mg/dl (8.4-10.2); Carbon Dioxide 26 mmol/L (22.0-30.0); Chloride 108 mmol/L (98-107); Creatinine Clearance Estimated 88 mL/min (50-200); Estimated Glomerular Filt Rate 56 ml/min (>60); GFR (African American) 68 ML/MIN (>60); Globulin 2.5 g/dL (1.3-3.2); Glucose 88 mg/dl (74-100); Potassium 4.2 mmoL/L (3.5-5.1); Sodium 137 mmol/L (136-145); Total Protein,Serum 5.6 g/dl (6.3-8.2)
[2023-08-16 08:00] VITALS: BP 129/74; PULSE 86; RESP 19; TEMP 36.8; O2SAT 97
[2023-08-16] MEDS: GABAPENTIN 800MG TABLET 800 MG PO (08:36)
[2023-08-16] MEDS: FUROSEMIDE 40 MG TABLET PO (08:36)
[2023-08-16] MEDS: HYDROCODONE 10MG/APAP 325MG TAB 1 TAB PO (08:37)
--- NOTE | 2023-08-16 08:43 | EXP.SURG.PN ---
Subjective Patient reports: no new complaints and feels better Exam Data for Last 24 hours Vital signs and Labs for Last 24 Hours: Temp Pulse Resp BP Pulse Ox O2 Del Method 98.2 F 89 16 111/50 L 97 Room Air 08/16/23 04:00 08/16/23 04:00 08/16/23 04:00 08/16/23 04:00 08/16/23 04:00 08/16/23 07:00 Laboratory Results - last 24 hr 08/16/23 06:21: WBC 7.1 D, RBC 3.40 L, Hgb 11.0 L, Hct 34.1 L, MCV 100.5 H, MCH 32.4 H, MCHC 32.3, RDW 14.2, Plt Count 183, MPV 9.8, Neut % (Auto) 64.2, Lymph % (Auto) 24.4, [place] % (Auto) 6.1, Eos % (Auto) 4.3, Baso % (Auto) 0.9, Neut # (Auto) 4.5, Lymph # (Auto) 1.7, [place] # (Auto) 0.4, Eos # (Auto) 0.3, Baso # (Auto) 0.1, Sodium 137, Potassium 4.2, Chloride 108 H, Carbon Dioxide 26, Anion Gap 7.2, BUN 17, Creatinine 1.00, Estimated Creat Clear 88, Estimated GFR 56 L, Est GFR ( Amer) 68, Glucose 88, Calcium 8.3 L, Total Bilirubin 0.3, AST 36 D, ALT 27 D, Alkaline Phosphatase 69, Total Protein 5.6 L, Albumin 3.1 L, Globulin 2.5, Albumin/Globulin Ratio 1.2 I & O for Last 24 hours: Intake & Output 08/13/23 08/14/23 08/15/23 08/16/23 11:59 11:59 11:59 11:59 Intake Total 2842 / 2842 2034 / 2034 1555 / 1555 Output Total 0 / 0 80 / 80 65 / 65 Balance 2842 / 2842 1954 / 1954 1490 / 1490 Weight 204 lb 2 oz 209 lb 10.906 oz 212 lb 8.41 oz Constitutional Constitutional: no acute distress *Routine Respiratory Exam Respiratory: Absent respiratory distress *Routine Cardiovascular Exam Cardiovascular: Absent tachycardia *Routine Abdominal Exam Abdominal: Present soft Comments: López-Ratliff drainage nonbilious Progress Note: A&P Assessment and plan (1) Acute calculous cholecystitis: Status: Acute Assessment and plan: Overall, doing well status post laparoscopic cholecystectomy with extensive lysis of adhesions Okay from surgical standpoint for discharge home with close outpatient follow-up
--- NOTE | 2023-08-16 09:19 | PC.NURSE ---
NEW DRESSINGS APPLIED, KRISTINE DRAINS EMPTIED, ABOUT 50ML SEROSANG DRAINAGE NOTED.
--- NOTE | 2023-08-16 09:43 | EXP.DC.SUM ---
General Admission date:: 08/12/23 Discharge date: 08/16/23 HPI HPI HPI: This is a 63-year-old female PMHX obesity, CKD, hypertension, DVT on warfarin, PAD presented to ED with about 24 hours of worsening right upper quadrant and epigastric pain. She reported it is severe and nothing tried at home will provide relief. She denies any fever at home. She denies any active chest pain or shortness of breath. 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 She had a total colectomy at age 18, initially had an ileostomy, now has a BCIR. She has had no other abdominal surgeries. admitted for treatment and management. Still complaining of RUQ abd pain on my evaluation. She has had a similar pain in the past that resolved with time. She now has persistent pain without much relief. She has spicy mikhail last night for dinner and experienced the pain shortly thereafter. Hospital Course Hospital Course Hospital Course: 63-year-old female PMHX obesity, CKD, hypertension, DVT on warfarin, PAD presented to ED with about 24 hours of worsening right upper quadrant and epigastric pain. -Abdominal pain secondary to acute cholescystitis: s/p cholecystenctomy per GS advanced to regular diet - tolerating Continent ileostomy Cannulates 1-2 times a day for bowel movements CKD: Creatinine 1.0, BUN 14. At patient's baseline. GERD: Continue pantoprazole 40 mg nightly. Continue gabapentin 800 mg 3 times a day for neuropathy. Continue levothyroxine 50 mcg daily for hypothyroid. Hypertension/hyperlipidemia: stable and given normotension. Tobacco use disorder: Nicotine patch as needed daily DC on oral levofloxacin Obesity: Complicates all aspects of care Exam Data for Last 24 hours Vital signs and Labs for Last 24 Hours: Temp Pulse Resp BP Pulse Ox O2 Del Method 98.2 F 86 19 129/74 97 Room Air 08/16/23 08:00 08/16/23 08:00 08/16/23 08:00 08/16/23 08:00 08/16/23 08:00 08/16/23 09:00 Laboratory Results - last 24 hr 08/16/23 06:21: WBC 7.1 D, RBC 3.40 L, Hgb 11.0 L, Hct 34.1 L, MCV 100.5 H, MCH 32.4 H, MCHC 32.3, RDW 14.2, Plt Count 183, MPV 9.8, Neut % (Auto) 64.2, Lymph % (Auto) 24.4, Payette % (Auto) 6.1, Eos % (Auto) 4.3, Baso % (Auto) 0.9, Neut # (Auto) 4.5, Lymph # (Auto) 1.7, Payette # (Auto) 0.4, Eos # (Auto) 0.3, Baso # (Auto) 0.1, Sodium 137, Potassium 4.2, Chloride 108 H, Carbon Dioxide 26, Anion Gap 7.2, BUN 17, Creatinine 1.00, Estimated Creat Clear 88, Estimated GFR 56 L, Est GFR ( Amer) 68, Glucose 88, Calcium 8.3 L, Total Bilirubin 0.3, AST 36 D, ALT 27 D, Alkaline Phosphatase 69, Total Protein 5.6 L, Albumin 3.1 L, Globulin 2.5, Albumin/Globulin Ratio 1.2 I & O for Last 24 hours: Intake & Output 08/13/23 08/14/23 08/15/23 08/16/23 23:59 23:59 23:59 23:59 Intake Total 2155 / 2155 1115 / 1115 710 / 710 Output Total 50 / 50 30 / 30 65 / 65 Balance 2105 / 2105 1085 / 1085 645 / 645 Weight 92.59 kg 95.11 kg 96.4 kg Constitutional Constitutional: no acute distress *Routine HEENT Exam Head: Present normocephalic Eye: Present EOMI and PERRL ENT: Present mucous membranes moist *Routine Neck Exam Neck: Present supple; Absent lymphadenopathy *Routine Respiratory Exam Respiratory: Present CTA bilaterally *Routine Cardiovascular Exam Cardiovascular: Present RRR *Routine Abdominal Exam Abdominal: Present soft and normoactive bowel sounds; Absent tenderness *Routine Extremities Exam Extremities: Absent cyanosis, clubbing or edema *Routine Skin Exam Skin: Present warm; Absent rash *Routine Neurological Exam Neurological: Present alert and oriented X3 Results Data Completed and Pending Labs on day of discharge: Labs from last 24 hours 08/16/23 06:21 WBC 7.1 D RBC 3.40 L Hgb 11.0 L Hct 34.1 L MCV 100.5 H MCH 32.4 H MCHC 32.3 RDW 14.2 Plt Count 183 MPV 9.8 Neut % (Auto) 64.2 Lymph % (Auto) 24.4 Payette % (Auto) 6.1 Eos % (Auto) 4.3 Baso % (Auto) 0.9 Neut # (Auto) 4.5 Lymph # (Auto) 1.7 Payette # (Auto) 0.4 Eos # (Auto) 0.3 Baso # (Auto) 0.1 Sodium 137 Potassium 4.2 Chloride 108 H Carbon Dioxide 26 Anion Gap 7.2 BUN 17 Creatinine 1.00 Estimated Creat Clear 88 Estimated GFR 56 L Est GFR ( Amer) 68 Glucose 88 Calcium 8.3 L Total Bilirubin 0.3 AST 36 D ALT 27 D Alkaline Phosphatase 69 Total Protein 5.6 L Albumin 3.1 L Globulin 2.5 Albumin/Globulin Ratio 1.2 DS: Diagnosis Discharge Diagnosis (1) Acute calculous cholecystitis: Status: Acute Code(s): K80.00 - Calculus of gallbladder with acute cholecystitis without obstruction Meds Home Medications and Allergies Home Medications Medication Instructions Recorded Confirmed Type atenolol 50 mg tablet 50 mg PO DAILY High Blood Pressure 08/12/23 08/12/23 History atorvastatin 20 mg tablet (Lipitor) 20 mg PO DAILY Cholesterol 08/12/23 08/12/23 History furosemide 40 mg tablet 40 mg PO DAILY Fluid 08/12/23 08/12/23 History gabapentin 800 mg tablet 800 mg PO TID NERVE PAIN 08/12/23 08/12/23 History hydrocodone 10 mg-acetaminophen 1 tab PO QID MODERATE TO SEVERE 08/12/23 08/12/23 History 325 mg tablet PAIN levothyroxine 50 mcg tablet 50 mcg PO DAILYDM THYROID 08/12/23 08/12/23 History pantoprazole 40 mg tablet,delayed 40 mg PO DAILY Acid Reflux 08/12/23 08/12/23 History release (Protonix) warfarin 5 mg tablet 5 mg PO SUMOTUWEFRSA BLOOD 08/12/23 08/12/23 History THINNER, HX OF DVT warfarin 5 mg tablet 7.5 mg PO TH BLOOD THINNER, DVT 08/12/23 08/12/23 History PROPHYLAXIS levofloxacin 500 mg tablet 500 mg PO DAILY 5 days #5 tabs 08/16/23 Rx New Prescriptions to Start Prescriptions: levofloxacin Teto,Irfan Allergies Allergy/AdvReac Type Severity Reaction Status Date / Time erythromycin base Allergy Intermediate I-ITCHING Verified 07/26/23 13:50 morphine Allergy Intermediate I-RASH Verified 07/26/23 13:50 Penicillins Allergy Intermediate I-ITCHING Verified 07/26/23 13:50 sulfamethoxazole Allergy Intermediate Diarrhea Verified 07/26/23 13:50 [From Bactrim] trimethoprim [From Bactrim] Allergy Intermediate Diarrhea Verified 07/26/23 13:50 azithromycin Allergy Mild dry mouth Verified 07/26/23 13:50 [From Zithromax Z-Chace] rosuvastatin AdvReac Intermediate Nausea Verified 07/31/23 12:27 Discharge Plan Disposition Patient Disposition: Home, Self-Care Condition: Good Follow up Plan Follow up with: Mika Murrieta DO [Primary Care Provider] - 1 week Jerrod Amaya MD [Staff Physician] - 1 week Prescriptions/Medication Reconciliation: New levofloxacin 500 mg tablet 500 mg PO DAILY 5 Days Qty: 5 0RF Continued warfarin 5 mg Tablet 7.5 mg PO TH furosemide 40 mg tablet 40 mg PO DAILY atorvastatin [Lipitor] 20 mg tablet 20 mg PO DAILY hydrocodone-acetaminophen 10-325 mg tablet 1 tab PO QID gabapentin 800 mg tablet 800 mg PO TID levothyroxine 50 mcg tablet 50 mcg PO DAILYDM Rx Instructions: TAKE 1 TABLET EVERY DAY pantoprazole [Protonix] 40 mg tablet,delayed release (DR/EC) 40 mg PO DAILY warfarin 5 mg tablet 5 mg PO SUMOTUWEFRSA atenolol 50 mg tablet 50 mg PO DAILY Problem Reconciliation Problems Reviewed?: Yes Patient Discharge Instructions ACTIVITY: Ambulate as tolerated DIET: advance to your usual diet Patient Instructions: DI for Surgical Site Infection, DI for Cholecystitis, DI for Laparoscopic Cholecystectomy, Coumadin Vitamin K/ Diet Providers Primary Care Provider: Mika Murrieta Admit Provider: Maxi Trujillo Attending Provider: Maxi Trujillo
--- NOTE | 2023-08-17 16:14 | CARE MANAGER ---
Called and spoke with patient regarding recent discharge. She stated that she has started new medication and is aware of f/u appts. Patient's only complaint is that she left her phone machinery erector in the room and no one can find it.
== END 2023-08-16 11:01 | disposition home or self-care (01) ==
LOC: ER 08-12 01:59 → 2ND 08-12 02:46
PROVIDERS: Nurse Practitioner Family; Student in an Organized Health Care Education/Training Program; Surgery; Admitting Provider Internal Medicine Adolescent Medicine; Emergency Provider Emergency Medicine; PCP Internal Medicine; Visit Provider Internal Medicine Adolescent Medicine
PROC: 0FT44ZZ Resection of Gallbladder, Percutaneous Endoscopic Approach (ICD-10-PCS; CPT 47562; principal; 2023-08-13 08:30)
DX: K80.00 Calculus of gallbladder with acute cholecystitis without obstruction (principal); E66.9 Obesity, unspecified; I11.9 Hypertensive heart disease without heart failure; N18.31 Chronic kidney disease, stage 3a; K21.9 Gastro-esophageal reflux disease without esophagitis; F17.200 Nicotine dependence, unspecified, uncomplicated; Z79.01 Long term (current) use of anticoagulants; I10 Essential (primary) hypertension; I12.9 Hypertensive chronic kidney disease with stage 1 through stage 4 chronic kidney disease, or unspecified chronic kidney disease; Z68.39 Body mass index [BMI] 39.0-39.9, adult; Z86.718 Personal history of other venous thrombosis and embolism
CPT/HCPCS: 47562; 36415; 74177; 80053; 83605; 83690; 83735; 84484; 85025; 85610; 88304; 93005; 96374; 99285; J3490; G0378; J1956; J2405; Q9967

== ENCOUNTER 2023-09-19 16:23 | Outpatient (CLI) | payer MEDICARE, SELFPAY ==
[2023-09-19 18:15] LABS: Basophils # 0.1 K/mm3 (0-0.2); Eosinophils # 0.3 K/mm3 (0.0-0.4); Eosinophils % 2.5 % (0.1-12.0); Hematocrit 42.8 % (37.0-47.0); Hemoglobin 13.6 g/dL (12.2-16.2); Lymphocytes % 18.9 % (10-50); Mean Corpuscular HGB Conc 31.7 g/dL (31.8-35.4); Mean Corpuscular Hemoglobin 31.7 pg (27.0-31.2); Mean Platelet Volume 10.3 fl (7.4-10.4); Monocytes # 0.5 K/mm3 (0.1-1.0); Monocytes % 5.2 % (1.7-9.3); Neutrophils # 7.4 K/mm3 (1.8-7.8); Neutrophils % 72.4 % (37.0-80.0); Platelet Count 292 K/mm3 (142-424); Red Blood Count 4.28 M/mm3 (4.20-5.40); Red Cell Distribution Width 13.9 % (11.5-17.5); White Blood Count 10.3 K/mm3 (4.8-10.8)
[2023-09-19 18:45] LABS: Alanine Aminotransferase 15 U/L (12-78); Albumin Level 4.1 g/dl (3.5-5.0); Albumin/Globulin Ratio 1.4 (1.1-1.8); Alkaline Phosphatase 90 U/L (38-126); Anion Gap 11.9 mEq/L (5-15); Aspartate Amino Transferase 27 U/L (14-36); Bilirubin,Total 0.6 mg/dl (0.2-1.3); Blood Urea Nitrogen 21 mg/dl (7-17); Calcium 9.9 mg/dl (8.4-10.2); Carbon Dioxide 26 mmol/L (22.0-30.0); Chloride 105 mmol/L (98-107); Estimated Glomerular Filt Rate 41 ml/min (>60); GFR (African American) 50 ML/MIN (>60); Glucose 101 mg/dl (74-100); Potassium 4.9 mmoL/L (3.5-5.1); Sodium 138 mmol/L (136-145); Total Protein,Serum 7.1 g/dl (6.3-8.2)
[2023-09-19 19:02] LABS: 25-OH Vitamin D, Total 27.2 ng/mL (30-100)
[2023-09-19 19:16] LABS: Thyroid Stimulating Hormone 0.56 uIU/mL (0.465-4.68)
[2023-09-19 20:25] LABS: Iron 96 ug/dL (37-170)
[2023-09-19 20:35] LABS: Total Iron Binding Capacity 349 ug/dL (265-497)
[2023-09-19 21:02] LABS: Ferritin 29.3 ng/ml (11.1-264)
[2023-09-19 23:57] LABS: Vitamin B12 262 pg/mL (239-931)
[2023-09-21 17:47] LABS: Peripheral Smear Review Scanned Result
== END 2023-09-19 23:59 | disposition home or self-care (01) ==
LOC: LAB.DROPOF 09-20 16:23
PROVIDERS: PCP Internal Medicine; Visit Provider Internal Medicine
DX: N18.31 Chronic kidney disease, stage 3a; E55.9 Vitamin D deficiency, unspecified; D64.9 Anemia, unspecified; Z68.35 Body mass index [BMI] 35.0-35.9, adult; F17.210 Nicotine dependence, cigarettes, uncomplicated; I12.9 Hypertensive chronic kidney disease with stage 1 through stage 4 chronic kidney disease, or unspecified chronic kidney disease
CPT/HCPCS: 80053; 82306; 82607; 82728; 82746; 83540; 83550; 84443; 85025

== ENCOUNTER 2023-09-21 10:51 | Outpatient (CLI) | payer MEDICARE, SELFPAY ==
--- NOTE | 2023-09-21 10:57 | XR_ITS ---
FINAL REPORT CLINICAL HISTORY: Dyspnea. Congestion. Productive cough. COMPARISON: 07/20/2023 FINDINGS: TWO-VIEW CHEST The heart size is normal. The mediastinum is normal. There is a calcified granuloma in the left upper lobe. The lungs are otherwise clear. There is no pneumothorax. IMPRESSION: No acute cardiopulmonary process. Reviewed, Interpreted and Dictated by Gordo Sterling MD Transcribed by Deidre May Authenticated and [facility]
== END 2023-09-21 23:59 ==
LOC: RAD 10:53
PROVIDERS: PCP Internal Medicine; Visit Provider Family Medicine
DX: R06.09 Other forms of dyspnea (principal)
CPT/HCPCS: 71046

== ENCOUNTER 2023-10-19 19:00 | Outpatient (CLI) | payer MEDICARE, SELFPAY | END 2023-10-19 23:59 | disposition home or self-care (01) | LOC: LAB.DROPOF 19:01 | PROVIDERS: PCP Nurse Practitioner Family; Visit Provider Nurse Practitioner Family | DX: N39.0 Urinary tract infection, site not specified (principal) | CPT/HCPCS: 87086 ==

== ENCOUNTER 2023-11-06 12:00 | Outpatient (CLI) | payer MEDICARE, SELFPAY ==
[2023-11-06 18:43] LABS: Coronavirus 19, PCR Not Detected (NotDetected); Influenza A, PCR Not Detected (NotDetected); Influenza B, PCR Not Detected (NotDetected)
== END 2023-11-06 23:59 | disposition home or self-care (01) ==
LOC: LAB.DROPOF 11-08 12:02
PROVIDERS: Visit Provider Family Medicine
DX: R06.02 Shortness of breath (principal)
CPT/HCPCS: 87636

== ENCOUNTER 2024-01-04 18:15 | Outpatient (CLI) | payer MEDICARE, SELFPAY ==
[2024-01-04 18:24] LABS: Basophils # 0.1 K/mm3 (0-0.2); Basophils % 0.8 % (0.1-2.0); Eosinophils # 0.3 K/mm3 (0.0-0.4); Eosinophils % 3.9 % (0.1-12.0); Hematocrit 39.4 % (37.0-47.0); Hemoglobin 12.6 g/dL (12.2-16.2); Lymphocytes # 1.8 K/mm3 (0.7-4.5); Lymphocytes % 24.1 % (10-50); Mean Corpuscular Hemoglobin 31.7 pg (27.0-31.2); Mean Corpuscular Volume 98.8 fl (81-99); Mean Platelet Volume 9.8 fl (7.4-10.4); Monocytes # 0.4 K/mm3 (0.1-1.0); Monocytes % 4.9 % (1.7-9.3); Neutrophils # 4.8 K/mm3 (1.8-7.8); Neutrophils % 66.3 % (37.0-80.0); Platelet Count 317 K/mm3 (142-424); Red Blood Count 3.99 M/mm3 (4.20-5.40); Red Cell Distribution Width 15.2 % (11.5-17.5); White Blood Count 7.3 K/mm3 (4.8-10.8)
[2024-01-04 19:29] LABS: Alanine Aminotransferase 13 U/L (12-78); Albumin Level 3.8 g/dl (3.5-5.0); Albumin/Globulin Ratio 1.4 (1.1-1.8); Alkaline Phosphatase 82 U/L (38-126); Anion Gap 10.7 mEq/L (5-15); Aspartate Amino Transferase 25 U/L (14-36); Bilirubin,Total 0.4 mg/dl (0.2-1.3); Blood Urea Nitrogen 24 mg/dl (7-17); Calcium 9.2 mg/dl (8.4-10.2); Carbon Dioxide 27 mmol/L (22.0-30.0); Chloride 106 mmol/L (98-107); Chol/HDL Ratio 3.1 (1-3.5); Cholesterol 175 mg/dl (140-200); Estimated Glomerular Filt Rate 45 ml/min (>60); GFR (African American) 55 ML/MIN (>60); Globulin 2.8 g/dL (1.3-3.2); Glucose 89 mg/dl (74-100); HDL Cholesterol 56 mg/dl (40-60); Potassium 4.7 mmoL/L (3.5-5.1); Sodium 139 mmol/L (136-145); Total Protein,Serum 6.6 g/dl (6.3-8.2); Triglycerides 102 mg/dl (30-150); VLDL Cholesterol 20 mg/dL (0-40)
[2024-01-04 19:40] LABS: Direct LDL Cholesterol 76.66 mg/dL (100-129)
[2024-01-04 21:59] LABS: Hemoglobin A1C 5.1 % (4.0-6.0)
[2024-01-15 09:09] LABS: 1,25 Dihydroxy Vitamin D 30 pg/mL (.); 1,25-Dihydroxy, Vitamin D-2 11 pg/mL (.); 1,25-Dihydroxy, Vitamin D-3 19 pg/mL (.)
== END 2024-01-04 23:59 | disposition home or self-care (01) ==
LOC: LAB.DROPOF 18:16
PROVIDERS: PCP Internal Medicine; Visit Provider Internal Medicine
DX: Z13.1 Encounter for screening for diabetes mellitus (principal); E66.9 Obesity, unspecified; Z79.01 Long term (current) use of anticoagulants; E55.9 Vitamin D deficiency, unspecified; Z68.36 Body mass index [BMI] 36.0-36.9, adult
CPT/HCPCS: 80053; 80061; 82652; 83036; 85025

== ENCOUNTER 2024-01-12 12:42 | Outpatient (CLI) | payer MEDICARE, SELFPAY ==
[2024-01-12 13:06] LABS: PHA INR Fingerstick 1.4 (0.9-1.1)
== END 2024-01-12 13:08 ==
LOC: ACC 12:43
PROVIDERS: Nurse Practitioner Family; PCP Internal Medicine; Visit Provider Internal Medicine
DX: Z79.01 Long term (current) use of anticoagulants (principal); Z86.718 Personal history of other venous thrombosis and embolism
CPT/HCPCS: 85610; 99211; G0463

== ENCOUNTER 2024-02-27 10:03 | Outpatient (CLI) | payer MEDICARE, SELFPAY ==
[2024-02-28 14:35] LABS: PHA INR Fingerstick 2.5 (0.9-1.1)
== END 2024-02-27 23:59 | disposition home or self-care (01) ==
LOC: ACC 10:05
PROVIDERS: Emergency Medicine; PCP Internal Medicine; Visit Provider Internal Medicine
DX: Z79.01 Long term (current) use of anticoagulants (principal); Z86.711 Personal history of pulmonary embolism
CPT/HCPCS: 85610; 99211; G0463

== ENCOUNTER 2024-05-29 18:45 | Emergency (ER) | payer MEDICARE, SELFPAY ==
[2024-05-29 19:00] VITALS: BP 138/71; PULSE 91; RESP 16; TEMP 36.9; O2SAT 97; BMI 34.2
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
[2024-05-29 19:31] VITALS: BP 111/56; PULSE 80; RESP 16; O2SAT 98
--- NOTE | 2024-05-29 19:38 | PC.NURSE ---
rounded on patient, patient given sandwich, chips and a drink
[2024-05-29] MEDS: IBUPROFEN 400 MG TABLET 800 MG PO (19:44)
[2024-05-29] MEDS: CEFDINIR 300MG CAPSULE 300 MG PO (19:45)
[2024-05-29] MEDS: CIPRO 0.3%-DEX 0.1% OTIC SUSP 7.5ML 7.5 ML OT (19:45)
[2024-05-29] MEDS: ACETAMINOPHEN 500MG TAB 1000 MG PO (19:45)
[2024-05-29] MEDS: LORATADINE 10MG TABLET 10 MG PO (19:48)
[2024-05-29 19:56] VITALS: BP 111/56; PULSE 91; RESP 20; TEMP 36.6; O2SAT 95
== END 2024-05-29 19:58 | disposition home or self-care (01) ==
PROVIDERS: Emergency Provider Emergency Medicine; PCP Internal Medicine
DX: J01.90 Acute sinusitis, unspecified (principal); H66.92 Otitis media, unspecified, left ear; R50.9 Fever, unspecified; H92.02 Otalgia, left ear; R42 Dizziness and giddiness; R09.81 Nasal congestion; R05.9 Cough, unspecified
CPT/HCPCS: 99283

== ENCOUNTER 2024-06-13 15:06 | Outpatient (CLI) | payer MEDICARE, SELFPAY | END 2024-06-13 23:59 | disposition home or self-care (01) | LOC: LAB.DROPOF 15:07 | PROVIDERS: PCP Family Medicine; Visit Provider Family Medicine | DX: B37.9 Candidiasis, unspecified (principal); R39.9 Unspecified symptoms and signs involving the genitourinary system | CPT/HCPCS: 87086; 87210 ==

== ENCOUNTER 2024-07-17 09:30 | Outpatient (CLI) | payer MEDICARE, SELFPAY ==
[2024-07-17 19:30] LABS: Alanine Aminotransferase 19 U/L (12-78); Albumin Level 4.2 g/dl (3.5-5.0); Albumin/Globulin Ratio 1.7 (1.1-1.8); Alkaline Phosphatase 75 U/L (38-126); Anion Gap 12.5 mEq/L (5-15); Aspartate Amino Transferase 27 U/L (14-36); Bilirubin,Total 0.5 mg/dl (0.2-1.3); Blood Urea Nitrogen 22 mg/dl (7-17); Calcium 9.7 mg/dl (8.4-10.2); Carbon Dioxide 28 mmol/L (22.0-30.0); Chloride 102 mmol/L (98-107); Estimated Glomerular Filt Rate 41 ml/min (>60); GFR (African American) 50 ML/MIN (>60); Globulin 2.5 g/dL (1.3-3.2); Glucose 100 mg/dl (74-100); Potassium 4.5 mmoL/L (3.5-5.1); Sodium 138 mmol/L (136-145); Total Protein,Serum 6.7 g/dl (6.3-8.2)
[2024-07-17 19:31] LABS: Creatinine,Urine Random 62 mg/dL (Not Estab.); Microalbumin/Creatinine Ratio 26.7
== END 2024-07-17 23:59 | disposition home or self-care (01) ==
LOC: LAB.DROPOF 07-18 12:02
PROVIDERS: PCP Internal Medicine; Visit Provider Internal Medicine
DX: E03.9 Hypothyroidism, unspecified (principal); I10 Essential (primary) hypertension; E55.9 Vitamin D deficiency, unspecified
CPT/HCPCS: 80053; 82043; 82570

== ENCOUNTER 2025-02-10 10:53 | Outpatient (CLI) | payer MEDICARE, SELFPAY ==
--- OUTSIDE RECORDS SUMMARY | 2025-02-10 10:58 | XMS_ITS | Clinical Summary ---
Author Organization [facility] Address [address] [place] [address] Care Team Providers Care Training Coordinator Name Role Phone Chuy Stewart MD Primary Care Provider [phone] Allergies Active Allergy Reactions Criticality Noted Date Comments Morphine Itching Medium 06/12/2020 Other Unknown - Low Severity 08/19/2021 Pt states her mother told her she is allergic to all mycin antibiotics. Unsure of reactions. Penicillins Other (See Comments) Low 06/12/2020 Childhood allergy. Unknown reaction Medications gabapentin (NEURONTIN) 800 MG tablet Take 800 mg by mouth 3 (Three) Times a Day. Active levothyroxine (SYNTHROID, LEVOTHROID) 50 MCG tablet Take 50 mcg by mouth Daily. Active Cholecalciferol (Vitamin D3) 1.25 MG (46266 UT) capsule Take 50,000 Units by mouth Every 7 (Seven) Days. Tuesdays Active nicotine (NICODERM CQ) 21 MG/24HR patch Place 1 patch on the skin as directed by provider Daily. 14 patch 1 Active warfarin (COUMADIN) 5 MG tablet Take 5 mg by mouth Daily. Active warfarin (COUMADIN) 2.5 MG tablet Take 2.5 mg by mouth Daily. Not currently taking., taking a 5mg daily. Active oxyCODONE (Roxicodone) 5 MG immediate release tabletIndicatio ns:Status post total hip replacement, right Take 1 tablet by mouth Every 4 (Four) Hours As Needed for Moderate Pain . 40 tablet 08/31/2021 3:19 PM EDT 2 Active metaxalone (SKELAXIN) 800 MG tablet Take 1 tablet by mouth 3 (Three) Times a Day As Needed for Muscle Spasms. 45 tablet 08/31/2021 3:19 PM EDT 2 Active ondansetron (Zofran) 4 MG tablet Take 1 tablet by mouth Every 8 (Eight) Hours As Needed for Nausea or Vomiting for up to 20 doses. 20 tablet 08/31/2021 3:19 PM EDT 2 Active atenolol (TENORMIN) 50 MG tablet Take 1 tablet by mouth Daily. 2 Active furosemide (LASIX) 40 MG tablet Take 1 tablet by mouth Daily. 2 Active Active Problems Problem Noted Date Diagnosed Date Pre-op testing 02/22/2022 Impaired glucose tolerance test 02/22/2022 Other specified pre-operative examination 2021 Personal history of other ly mphatic and hematopoietic neoplasm 02/22/2022 Status post total hip replacement, right 022 Status post debridement, lef t hip non healing wound with eschar. 08/26/2020 Eschar of wound bed 08/26/2020 Arthritis of right hip 06/22/2020 Obesity 06/22/2020 Anxiety 06/22/2020 Chronic anticoagulation 06/22/2020 Chronic use of opiate for therapeutic purpose HTN (hypertension) 06/22/2020 Hypothyroidism 06/22/2020 Tobacco abuse 06/22/2020 Status post total hip replacement, left anterior 06/22/2020 Arthritis of left hip 06/22/2020 Social History Tobacco Use Types Packs/Day Years Used Date Smoking Tobacco: Every Day Cigarettes 0.5 30 Smokeless Tobacco: Never Comments:08-20-2021 down to 8 cigarettes per day Alcohol Use Standard Drinks/Week Comments Not Currently 0 (1 standard drink = 0.6 oz pur e alcohol) AUDIT-C Answer Date Recorded Q1: How often do you have a drink containing alcohol? Never 08/30/2021 Q2: How many drinks containi ng alcohol do you have on a typical day when you are drinking? Patient does not drink Q3: How often do you have si x or more drinks on one occasion? Never 08/30/2021 Abuse Screen Answer Date Recorded Unsafe at Home or Work/School Not on file Feels Threatened by Someone? Not on file 10/ 02/2023 Does Anyone Keep You from Co ntacting Others or Doint Things Outside the Home? Not on file 03/13/2023 Physical Sign of Abuse Present Not on file 1 Housing Stability Answer Date Recorded Current Living Arrangements Not on file 02/2023 Potentially Unsafe Housing Conditions Not on silvio e 03/13/2023 Family and Community Support Answer Danny e Recorded Help with Day-to-Day Activities Not on file 03/13/2023 Lonely or Isolated Not on file 03/13/2023 Employment Answer Date Recorded Do you want help finding or keeping work or a robby b? Not on file 03/13/2023 Disabilities Answer Date Recorded Concentrating, Remembering, or Making Decisions Difficulty Not on file 03/13/2023 Doing Errands Independently Difficulty Not on fi le 03/13/2023 Education Answer Date Recorded Help with school or training? Not on file Preferred Language Not on file 03/13/2023 Comments No Sex and Gender Information Value Date Recorded Sex Assigned at Not on file Legal Sex Female 10:23 AM EDT Gender Identity Not on file Sexual Orientation Not on file Last Filed Vital Signs Vital Sign Reading Time Taken Comments Blood Pressure 136/55 11/02/2021 6:33 PM EDT Pulse 88 11/02/2021 6:33 PM EDT Temperature 36.1 C (97 F) 11/02/2021 6:33 PM EDT Respiratory Rate 18 11/02/2021 6:33 PM EDT Oxygen Saturation 98% 11/02/2021 6:33 PM EDT Inhaled Oxygen Concentration - - Weight 86.2 kg (190 lb) 11/02/2021 6:33 PM EDT Height 157.5 cm (5' 2 ) 11/02/2021 6:33 PM EDT Body Mass Index 34.75 11/02/2021 6:33 PM EDT Plan of Treatment Health Maintenance Due Date Last Done Comments Annual Gynecologic Pelvic an d Breast Exam 1960 MAMMOGRAM 2000 COLOGUARD 2005 COLON CANCER SCREENING 5 YEA R SIGMOIDOSCOPY 2005 COLONOSCOPY 2005 COLORECTAL CANCER SCREENING 2005 CT COLONOGRAPHY 2005 FECAL OCCULT BLOOD TEST 2005 FIT Testing (1 year) 2005 ZOSTER VACCINE (1 of 2) 2010 TDAP/TD VACCINES (2 - Tdap) 07/26/2015 07/26/2005 Pneumococcal Vaccine 50+ (2 of 2 - PCV) 02/27/2019 02/27/2018 ANNUAL PHYSICAL 06/12/2020 HEPATITIS C SCREENING 06/12/2020 PT PLAN OF CARE 11/28/2021 08/30/2021, 12/03, 09/16/2020, Additional history exists COVID-19 Vaccine (3 - 2024-2 6 season) 2025 06/03/2021, 08/12/2020 INFLUENZA VACCINE 03/05/2025 02/27/2018 Medical Devices Implanted Type Area Cabin Supervisor Device Identifier Shelf Expiration Date Model / Serial / Lot Shll Acet R3 3h Std 50mm - [id number] Implanted:Qt y: 1 on 06/22/2020 by Khurram Price MD at [facility] Left: Hip [employer] 02/13/2030 [id number] / / [id number] Scrw Sph Hd Reflection 6x15mm - [id number] Implanted:Qt y: 1 on 06/22/2020 by Khurram Price MD at [facility] Left: Hip G[employer] 03/31/2029 [id number] / / [id number] Hd Fem/Hip Oxinium Tpr 05/18 22mm Pls0 - [id number] Implanted:Qt y: 1 on 06/22/2020 by Khurram Price MD at [facility] Left: Hip G[employer] 08/12/2028 [id number] / / [id number] Liner Hip Or30 2/Mobl Sz38/50 - [id number] Implanted:Qt y: 1 on 06/22/2020 by Khurram Price MD at [facility] Left: Hip G[employer] 01/12/2030 [id number] / / [id number] Insrt Hip Or30 2/Mobl Xlpe Sz22/38 - [id number] Implanted:Qt y: 1 on 06/22/2020 by Khurram Price MD at [facility] Left: Hip G[employer] 12/23/2029 [id number] / / [id number] Stem Fem/Hip Polarstem W/Colr Std Sz1 - [id number] Implanted:Qt y: 1 on 06/22/2020 by Khurram Price MD at [facility] Left: Hip [employer] 11/27/2026 [id number] / / [id number] Totl Hip 2 Mobl Gómez Nephew - [id number] Implanted:Qt y: 1 on 06/22/2020 by Khurram Price MD at [facility] Left: Hip G[employer]W CAPHIPTOALDUALMOBILI TY / / Scrw Sph Hd Reflection 6x15mm - [id number] Implanted:Qt y: 1 on 08/30/2021 by Khurram Price MD at [facility] Right: Hip G[employer] 01/31/2031 [id number] / / [id number] Scrw Sph Hd Reflection 6.5x20mm - [id number] Implanted:Qt y: 1 on 08/30/2021 by Khurram Price MD at [facility] Right: Hip [employer] 02/07/2031 [id number] / / [id number] Liner Hip Or30 2/Mobl Sz38/50 - [id number] Implanted:Qt y: 1 on 08/30/2021 by Khurram Price MD at [facility] Right: Hip G[employer] 11/30/2030 [id number] / / [id number] Stem Fem/Hip Polarstem W/Colr Std Sz1 - [id number] Implanted:Qt y: 1 on 08/30/2021 by Khurram Price MD at [facility] Right: Hip G[employer] 02/03/2028 [id number] / / [id number] Insrt Hip Or30 2/Mobl Xlpe Sz22/38 - [id number] Implanted:Qt y: 1 on 08/30/2021 by Khurram Price MD at [facility] Right: Hip G[employer] 11/10/2030 [id number] / / [id number] Hd Fem/Hip Oxinium Tpr 12/14 22mm Pls0 - [id number] Implanted:Qt y: 1 on 08/30/2021 by Khurram Price MD at [facility] Right: Hip G[employer]W 05/18/2031 [id number] / / [id number] Totl Hip Ernesto Gómez Nephew - [id number] Implanted:Qt y: 1 on 08/30/2021 by Khurram Price MD at [facility] Right: Hip G[employer]W CAPHIPTOTALSN2 / / Shll Acet R3 3h Std 50mm - [id number] Implanted:Qt y: 1 on 08/30/2021 by Khurram Price MD at [facility] Right: Hip G[employer]W 05/04/2031 [id number] / / [id number] Scrw Sph Hd Reflection 6.5x20mm - [id number] Implanted:Qt y: 1 on 08/30/2021 by Khurram Price MD at [facility] Right: Hip G[employer]W 03/08/2031 [id number] / / [id number] Additional Health Concerns Infection Onset Date Last Indicated MRSA 03/02/2022 03/02/2022 Insurance [id number] MEDIC[employer] ADV[employer] Advance Directives * CPR (Attempt to Resuscitate) (Latest Code Status on File) Date Activated Date Inactivated Comments 08/30/2021 2:49 PM 08/31/2021 7:33 PM Question Answer Comments Code Status (Patient has no pulse and is not breathing): CPR (Attempt to Resuscitate) Medical Interventions (Patie nt has pulse or is breathing): Full * CPR (Attempt to Resuscitate) Date Activated Date Inactivated Comments 06/22/2020 3:29 PM 06/23/2020 7:20 PM Question Answer Comments Code Status (Patient has no pulse and is not breathing): CPR (Attempt to Resuscitate) Medical Interventions (Patie nt has pulse or is breathing): Full Care Teams Training Coordinator Relationship Specialty Start Date End Date Chuy Stewart MD PCP - General Emergency Medicine 06/12/20
--- OUTSIDE RECORDS SUMMARY | 2025-02-10 10:58 | XMS_ITS | Clinical Summary ---
Author Organization [facility] Address [address] [place] [address] Care Team Providers Care Umbrella Tipper Machine Name Role Phone Chuy Stewart MD Primary Care Provider [phone] Allergies Active Allergy Reactions Criticality Noted Date Comments Azithromycin Other - please document in the comment field Low 02/27/2024 Dry mouth Erythromycin Itching Medium 02/27/2024 Morphine Rash Low 02/27/2024 Penicillins Itching Medium 02/27/2024 Rosuvastatin Nausea 02/27/2024 Sulfamethoxazole Diarrhea Low 02/27/2024 Sulfamethoxazole-Trimethoprim Diarrhea Low 2023 Medications atenolol (Tenormin) 50 MG tablet Take 1 tablet (50 mg) by mouth 1 (one) time each day. Active atorvastatin (Lipitor) 20 MG tablet Take 1 tablet (20 mg) by mouth 1 (one) time each day. Active Azelastine HCl 137 MCG/SPRAY solution Administer into affected nostril(s). Active benzonatate (Tessalon) 150 MG capsule Take 1 capsule (150 mg) by mouth 3 (three) times a day if needed for cough. Do not crush or chew. Active cetirizine (ZyrTEC) 10 MG tablet Take 1 tablet (10 mg) by mouth 1 (one) time each day. Active furosemide (Lasix) 40 MG tablet Take 1 tablet (40 mg) by mouth 1 (one) time each day. Active gabapentin (Neurontin) 800 MG tablet Take 1 tablet (800 mg) by mouth 3 (three) times a day. Active guaiFENesin (Mucinex) 600 MG 12 hr tablet Take 2 tablets (1,200 mg) by mouth 2 (two) times a day. Do not crush, chew, or split. Active HYDROcodone-marianna taminophen ([place]) 10-325 MG tablet Active levothyroxine (Synthroid, Levoxyl) 50 MCG tablet Take 1 tablet (50 mcg) by mouth 1 (one) time each day before breakfast. Active ondansetron (Zofran) 4 MG tablet Take 1 tablet (4 mg) by mouth every 8 (eight) hours if needed for nausea or vomiting. Active pantoprazole (Protonix) 40 MG EC tablet Take 1 tablet (40 mg) by mouth 1 (one) time each day. Do not crush, chew, or split. Active warfarin (Coumadin) 5 MG tablet Take 1 tablet (5 mg) by mouth 1 (one) time each day. Take as directed per After Visit Summary. Active warfarin (Coumadin) 7.5 MG tablet Take 1 tablet (7.5 mg) by mouth 1 (one) time each day. Take as directed per After Visit Summary. Active Social History Tobacco Use Types Packs/Day Years Used Date Smoking Tobacco: Every Day Cigarettes Tobacco Cessation:Ready to Q uit: Not Asked; Counseling Given: Not Answered Alcohol Use Standard Drinks/Week Comments Defer 0 (1 standard drink = 0.6 oz pur e alcohol) Comments Unknown Sex and Gender Information Value Date Recorded Sex Assigned at Not on file Legal Sex Female 8:39 PM EDT Gender Identity Not on file Sexual Orientation Not on file Plan of Treatment Health Maintenance Due Date Last Done Comments [facility]-Depression Screening 1960 [facility]-/Child/Adol SDOH Screenings 1960 [facility]- SDOH Screenings 1978 [facility]-Adult SDOH Screenings 1978 [facility]-Pap Smear 1981 [facility]-Cervical Cancer Screening 1990 [facility]-HPV/Cotest 1990 [facility]-DTaP,Tdap,and Td Vaccine s (1 - Tdap) 07/27/2005 07/26/2005 CT Colonography 2005 Colonoscopy 2005 FIT-DNA 2005 FIT 2005 FOBT 2005 Sigmoidoscopy 2005 [facility]-Colorectal Cancer Screening 2005 [facility]-Zoster Vaccines (1 of 2) 2010 [facility]-Pneumococcal Vaccine: 50 + Years (2 of 2 - PCV) 02/27/2019 02/27/2018 [id number] Vaccine (3 - 2024- season) 2025 06/03/2021, 08/12/2020 [facility]-Influenza Vaccine (#1) 02/03/202507/14, 02/27/2018 [facility]-RSV Vaccine: 60+ Years o r (1 - 1-dose 75+ series) 2035 HPV Vaccines Aged Out No longer eligi ble based on patient's age to complete this topic [facility]-HIB Vaccines Aged Out No longer e ligible based on patient's age to complete this topic [facility]-Hepatitis A Vaccines Aged Out No longer eligible based on patient's age to complete this topic [facility]-IPV Vaccines Aged Out No longer e ligible based on patient's age to complete this topic [facility]-Rotavirus Vaccines Aged Out No lo nger eligible based on patient's age to complete this topic Insurance [facility] MEDICARE Care Teams Umbrella Tipper Machine Relationship Specialty Start Date End Date Chuy Stewart MD [address] [place] [phone] PCP - General 10/16/20
--- OUTSIDE RECORDS SUMMARY | 2025-02-10 10:58 | XMS_ITS | Clinical Summary ---
Author Organization [facility] Address [address] [place] [address] Phone Care Team Providers Care Milk Route Supervisor Name Role Phone Karan Bertrand MD, Wilfrido [place] Primary Care Provid er Allergies Active Allergy Reactions Criticality Noted Date Comments Penicillins 07/04/2014 Medications No known medications Surgical History Surgery Date Site/Laterality Comments KNEE SURGERY knee replacement Social History Tobacco Use Types Packs/Day Years Used Date Smoking Tobacco: Never Assessed Comments Unknown Sex and Gender Information Value Date Recorded Sex Assigned at Not on file Legal Sex Female 9:39 AM EST Gender Identity Not on file Sexual Orientation Not on file Obstetrics History Plan of Treatment Health Maintenance Due Date Last Done Comments Annual Wellness Exam 1963 Hepatitis C Screening 1978 DTaP/TDaP/Td (1 - Tdap) 1979 Cologuard 2005 Colon Cancer Screening 2005 Colonoscopy 2005 FIT 2005 Sigmoidoscopy 2005 Virtual Colonography 2005 Pneumococcal Vaccine 50+ (1 of 1 - PCV) 2010 Zoster (1 of 2) 2010 COVID-19 Vaccine ( - 2023-2 5 season) 2025 Influenza Vaccine (#1) 2025 Hepatitis B Vaccine Aged Out No longe r eligible based on patient's age to complete this topic Meningococcal B Vaccine Aged Out No l onger eligible based on patient's age to complete this topic Insurance [facility] Care Teams Milk Route Supervisor Relationship Specialty Start Date End Date Wilfrido Russo Sr., MD [address] [place] [phone] PCP - General Radio Division Captain 06/30/14
[2025-02-10 11:31] LABS: Hematocrit 37.3 % (37.0-47.0); Hemoglobin 11.7 g/dL (12.2-16.2); Immature Granulocytes % 0.5 %; Mean Corpuscular HGB Conc 31.4 g/dL (31.8-35.4); Mean Corpuscular Hemoglobin 29.0 pg (27.0-31.2); Mean Corpuscular Volume 92.3 fl (81-99); Nucleated Red Blood Cells % 0 %; Platelet Count 343 K/mm3 (142-424); Red Blood Count 4.04 M/mm3 (4.20-5.40); Red Cell Distribution Width-SD 60.2 fL; White Blood Count 6.0 K/mm3 (4.8-10.8)
[2025-02-10 12:00] LABS: Chloride 104 mmol/L (98-107)
[2025-02-10 12:01] LABS: Albumin Level 4.1 g/dl (3.5-5.0); Potassium 4.9 mmoL/L (3.5-5.1); Sodium 137 mmol/L (136-145)
[2025-02-10 12:03] LABS: Anion Gap 11.9 mEq/L (5-15); Blood Urea Nitrogen 27 mg/dl (7-17); Carbon Dioxide 26 mmol/L (22.0-30.0); Creatinine,Serum 1.10 mg/dl (0.52-1.04); Estimated Glomerular Filt Rate 50 ml/min (>60); GFR (African American) 61 ML/MIN (>60)
[2025-02-10 12:04] LABS: Alanine Aminotransferase 13 U/L (12-78); Albumin/Globulin Ratio 1.6 (1.1-1.8); Alkaline Phosphatase 68 U/L (38-126); Aspartate Amino Transferase 27 U/L (14-36); Bilirubin,Total 0.5 mg/dl (0.2-1.3); Calcium 9.7 mg/dl (8.4-10.2); Cholesterol 211 mg/dl (140-200); Globulin 2.5 g/dL (1.3-3.2); Glucose 95 mg/dl (74-100); Total Protein,Serum 6.6 g/dl (6.3-8.2); Triglycerides 141 mg/dl (30-150)
[2025-02-10 12:06] LABS: INR 1.47 (0.9-1.1); Prothrombin Time 15.9 seconds (10.1-12.5)
[2025-02-10 12:35] LABS: Thyroid Stimulating Hormone 1.75 uIU/mL (0.465-4.68)
[2025-02-10 12:36] LABS: HDL Cholesterol 53 mg/dl (40-60)
--- NOTE | 2025-02-10 13:37 | P.CONPHA_ITS ---
Pharmacy Intervention Comments: WAS DROPPING OFF ORDERS WITH REGISTRATION DESK FOR ANOTHER PATIENT ON 02/10/25. SPOKE WITH PATIENT AND PATIENT WANTED TO GET INR CHECKED. LOOKED AT MOST RECENT ORDER AND FOLLOW UP WITH PATIENT. ORDER WAS AND PATIENT HAD NOT SHOWN UP FOR SOME TIME. NO SHOW NO CALL MULTIPLE VISITS. CALLED OFFICE FOR [facility] LUC[facility]. Margi LUCERO WAS OUT OF OFFICE TODAY SO I SPOKE WITH ROSETTE Darby IN OFFICE. ORDER FOR INR WAS SENT TO THE LAB FOR PATIENT FROM OFFICE AND OFFICE WILL MANAGE. PATIENT ALSO INDICATED SHE NEED REFILL ON WARFARIN. THIS WAS PASSED ONTO ROSETTE Darby IN PCP OFFICE TO CALL IN FOR PATIENT TO [facility] IN [place].
== END 2025-02-10 23:59 | disposition home or self-care (01) ==
PROVIDERS: PCP Nurse Practitioner Family; Visit Provider Nurse Practitioner Family
DX: E03.9 Hypothyroidism, unspecified (principal); I12.9 Hypertensive chronic kidney disease with stage 1 through stage 4 chronic kidney disease, or unspecified chronic kidney disease; N18.31 Chronic kidney disease, stage 3a; Z79.01 Long term (current) use of anticoagulants
CPT/HCPCS: 36415; 80053; 80061; 84443; 85025; 85610

== ENCOUNTER 2025-03-18 14:47 | Outpatient (CLI) | payer MEDICARE, SELFPAY ==
--- OUTSIDE RECORDS SUMMARY | 2025-03-18 14:50 | XMS_ITS | Clinical Summary ---
Author Organization [facility] Address [address] [place] [address] Care Team Providers Care Lieutenant Ballistics Name Role Phone Chuy Stewart MD Primary Care Provider [phone] Allergies Active Allergy Reactions Criticality Noted Date [...] crush, chew, or split. Active HYDROcodone-marianna taminophen ([place]) 10-325 MG tablet Active levothyroxine (Synthroid, Levoxyl) [...] (2 of 2 - PCV) 02/27/2019 02/27/2018 [id number] Vaccine (3 - 2024- season) 2025 06/03/2021, [...] patient's age to complete this topic Insurance [facility] MEDICARE Care Teams Lieutenant Ballistics Relationship Specialty Start Date End Date Chuy Stewart MD [address] [place] [phone] PCP - General 10/16/20
--- OUTSIDE RECORDS SUMMARY | 2025-03-18 14:50 | XMS_ITS | Clinical Summary ---
Author Organization [facility] Address [address] [place] [address] Phone Care Team Providers Care Restaurant Host/Hostess Name Role Phone Karan Bertrand MD, Wilfrido [place] Primary Care Provid er Allergies Active Allergy [...] patient's age to complete this topic Insurance [facility] Care Teams Restaurant Host/Hostess Relationship Specialty Start Date End Date Wilfrido Russo Sr., MD [address] [place] [address] KEKE HERRERA [phone] PCP - General Hvac Design Mechanical Engineer 06/30/14
--- OUTSIDE RECORDS SUMMARY | 2025-03-18 14:50 | XMS_ITS | Clinical Summary ---
Author Organization [facility] Address [address] [place] [address] Care Team Providers Care Telecommunications Project Manager Name Role Phone Chuy Stewart MD Primary Care Provider Allergies Active Allergy Reactions Criticality Noted Date [...] Daily. Active Cholecalciferol (Vitamin D3) 1.25 MG (73281 UT) capsule Take 50,000 Units by mouth [...] 11/28/2021 08/30/2021, 12/03, 09/16/2020, Additional history exists INFLUENZA VACCINE 01/03/2025 02/27/2018 Medical Devices Implanted Type Area Spiritual Advisor Device Identifier Shelf Expiration Date Model / Serial / Lot Shll Acet R3 3h Std 50mm - [id number] Implanted:Qt y: 1 on 06/22/2020 by Khurram Price MD at [facility] Implant Left: Hip GÓ[employer]PHEW 02/13/2030 [id number] / / [id number] Scrw Sph Hd Reflection 6x15mm - [id number] Implanted:Qt y: 1 on 06/22/2020 by Khurram Price MD at [facility] Implant Left: Hip GÓME[employer] NEPHEW 03/31/2029 [id number] / / [id number] Hd Fem/Hip Oxinium Tpr 05/18 22mm Pls0 - [id number] Implanted:Qt y: 1 on 06/22/2020 by Khurram Price MD at [facility] Implant Left: Hip GÓME[employer] NEPHEW 08/12/2028 [id number] / / [id number] Liner Hip Or30 2/Mobl Sz38/50 - [id number] Implanted:Qt y: 1 on 06/22/2020 by Khurram Price MD at [facility] Implant Left: Hip GÓME[employer] NEPHEW 01/12/2030 [id number] / / [id number] Insrt Hip Or30 2/Mobl Xlpe Sz22/38 - [id number] Implanted:Qt y: 1 on 06/22/2020 by Khurram Price MD at [facility] Implant Left: Hip GÓMEZ [employer] NEPHEW 12/23/2029 [id number] / / [id number] Stem Fem/Hip Polarstem W/Colr Std Sz1 - [id number] Implanted:Qt y: 1 on 06/22/2020 by Khurram Price MD at [facility] Implant Left: Hip GÓME[employer] NEPHEW 11/27/2026 [id number] / / [id number] Totl Hip 2 Mobl Gómez Nephew - [id number] Implanted:Qt y: 1 on 06/22/2020 by Khurram Price MD at [facility] Implant Left: Hip GÓMEZ [employer] NEPHEW CAPHIPTOALDUALMOBILI TY / / Scrw Sph Hd Reflection 6x15mm - [id number] Implanted:Qt y: 1 on 08/30/2021 by Khurram Price MD at [facility] Implant Right: Hip GÓMEZ AND NEPHEW 01/31/2031 [id number] / / [id number] Scrw Sph Hd Reflection 6.5x20mm - [id number] Implanted:Qt y: 1 on 08/30/2021 by Khurram Price MD at [facility] Implant Right: Hip GÓMEZ AND NEPHEW 02/07/2031 [id number] / / [id number] Liner Hip Or30 2/Mobl Sz38/50 - [id number] Implanted:Qt y: 1 on 08/30/2021 by Khurram Price MD at [facility] Implant Right: Hip GÓMEZ AND NEPHEW 11/30/2030 [id number] / / [id number] Stem Fem/Hip Polarstem W/Colr Std Sz1 - [id number] Implanted:Qt y: 1 on 08/30/2021 by Khurram Price MD at [facility] Implant Right: Hip GÓMEZ AND NEPHEW 02/03/2028 [id number] / / [id number] Insrt Hip Or30 2/Mobl Xlpe Sz22/38 - [id number] Implanted:Qt y: 1 on 08/30/2021 by Khurram Price MD at [facility] Implant Right: Hip GÓMEZ AND NEPHEW 11/10/2030 [id number] / / [id number] Hd Fem/Hip Oxinium Tpr 05/18 22mm Pls0 - [id number] Implanted:Qt y: 1 on 08/30/2021 by Khurarm Price MD at [facility] Implant Right: Hip GÓMEZ AND NEPHEW 05/18/2031 [id number] / / [id number] Totl Hip Ernesto Gómez Nephew - [id number] Implanted:Qt y: 1 on 08/30/2021 by Khurram Price MD at [facility] Implant Right: Hip GÓMEZ AND NEPHEW CAPHIPTOTALSN2 / / Shll Acet R3 3h Std 50mm - [id number] Implanted:Qt y: 1 on 08/30/2021 by Khurram Price MD at [facility] Implant Right: Hip GÓMEZ AND NEPHEW 05/04/2031 [id number] / / [id number] Scrw Sph Hd Reflection 6.5x20mm - [id number] Implanted:Qt y: 1 on 08/30/2021 by Khurram Price MD at [facility] Implant Right: Hip GÓMEZ AND NEPHEW 03/08/2031 [id number] / / [id number] Additional Health Concerns Infection Onset Date Last Indicated MRSA 03/02/2022 03/02/2022 Insurance [facility] MEDICARE ADVANTAGE Advance Directives * CPR (Attempt [...] pulse or is breathing): Full Care Teams Telecommunications Project Manager Relationship Specialty Start Date End Date Chuy Stewart MD PCP - General Emergency Medicine 06/12/20
--- NOTE | 2025-03-18 15:03 | CA_ITS ---
FINAL REPORT CLINICAL HISTORY: Right leg pain, Previous DVT, H/o crushing injury by horse FINDINGS: DUPLEX VENOUS SONOGRAPHY OF THE RIGHT LOWER EXTREMITY Multiple transverse and longitudinal scans were performed of the femoropopliteal deep venous system, with augmentation and compression maneuvers. FINDINGS: Normal phasic flow was noted in the visualized deep venous system. No intraluminal increased echogenicity is noted to suggest thrombus. There is normal compression and augmentation of the venous structures. No abnormal venous collaterals are seen. IMPRESSION: No evidence of deep venous thrombosis of the right lower extremity. Reviewed, Interpreted and Dictated by Valarie Espinoza MD Transcribed by Alicia Vigil Authenticated and [facility]
[2025-03-18 18:32] LABS: Albumin Level 4.0 g/dl (3.5-5.0); Chloride 99 mmol/L (98-107)
[2025-03-18 18:33] LABS: Potassium 4.6 mmoL/L (3.5-5.1); Sodium 135 mmol/L (136-145)
[2025-03-18 18:35] LABS: Alanine Aminotransferase 11 U/L (12-78); Blood Urea Nitrogen 25 mg/dl (7-17); Creatinine,Serum 1.30 mg/dl (0.52-1.04); Estimated Glomerular Filt Rate 41 ml/min (>60); GFR (African American) 50 ML/MIN (>60)
[2025-03-18 18:36] LABS: Albumin/Globulin Ratio 1.3 (1.1-1.8); Alkaline Phosphatase 77 U/L (38-126); Anion Gap 11.6 mEq/L (5-15); Aspartate Amino Transferase 23 U/L (14-36); Bilirubin,Total 0.3 mg/dl (0.2-1.3); Calcium 9.1 mg/dl (8.4-10.2); Carbon Dioxide 29 mmol/L (22.0-30.0); Globulin 3.0 g/dL (1.3-3.2); Glucose 78 mg/dl (74-100); Total Protein,Serum 7.0 g/dl (6.3-8.2)
== END 2025-03-18 23:59 | disposition home or self-care (01) ==
LOC: RT 14:48
PROVIDERS: PCP Nurse Practitioner Family; Visit Provider Family Medicine
DX: M79.661 Pain in right lower leg (principal); I10 Essential (primary) hypertension; Z86.718 Personal history of other venous thrombosis and embolism
CPT/HCPCS: 36415; 80053; 93971

== ENCOUNTER 2025-03-19 13:02 | Outpatient (CLI) | payer MEDICARE, SELFPAY ==
--- OUTSIDE RECORDS SUMMARY | 2025-03-19 13:06 | XMS_ITS | Clinical Summary ---
Author Organization [facility] Address [address] [place] [address] Care Team Providers Care Stoker Erector And Servicer Name Role Phone Chuy Stewart MD Primary Care Provider [phone] Allergies Active Allergy Reactions Criticality Noted Date [...] crush, chew, or split. Active HYDROcodone-marianna taminophen ([place]) 10-325 MG tablet Active levothyroxine (Synthroid, Levoxyl) [...] (2 of 2 - PCV) 02/27/2019 02/27/2018 [id number] Vaccine (3 - 2024- season) 2025 06/03/2021, [...] patient's age to complete this topic Insurance [facility] MEDICARE Care Teams Stoker Erector And Servicer Relationship Specialty Start Date End Date Chuy Stewart MD [address] [place] [id number] PCP - General 10/16/20
--- OUTSIDE RECORDS SUMMARY | 2025-03-19 13:06 | XMS_ITS | Clinical Summary ---
Author Organization [facility] Address [address] [place] [address] Phone Care Team Providers Care Bakery Supervisor Name Role Phone Karan Bertrand MD, Wilfrido [place] Primary Care Provid er Allergies Active Allergy [...] patient's age to complete this topic Insurance [facility] Care Teams Bakery Supervisor Relationship Specialty Start Date End Date Wilfrido Russo Sr., MD [address] [place] [address] KEKE HERRERA [phone] PCP - General Family Assistant 06/30/14
--- OUTSIDE RECORDS SUMMARY | 2025-03-19 13:06 | XMS_ITS | Clinical Summary ---
Author Organization [facility] Address [address] [place] [address] Care Team Providers Care Driftman Name Role Phone Chuy Stewart MD Primary [...] Daily. Active Cholecalciferol (Vitamin D3) 1.25 MG (87752 UT) capsule Take 50,000 Units by mouth [...] 01/03/2025 02/27/2018 Medical Devices Implanted Type Area Infantryman Device Identifier Shelf Expiration Date Model / Serial / Lot Shll Acet R3 3h Std 50mm - [id number] Implanted:Qt y: 1 on 06/22/2020 by Khurram Price MD at [facility] Implant Left: Hip GÓ[employer]W 02/13/2030 [id number] / / [id number] Scrw Sph Hd Reflection 6x15mm - [id number] Implanted:Qt y: 1 on 06/22/2020 by Khurram Price MD at [facility] Implant Left: Hip G[employer]PHEW 03/31/2029 [id number] / / [id number] Hd Fem/Hip Oxinium Tpr 05/18 22mm Pls0 - [id number] Implanted:Qt y: 1 on 06/22/2020 by Khurram Price MD at [facility] Implant Left: Hip G[employer]HEW 08/12/2028 [id number] / / [id number] Liner Hip Or30 2/Mobl Sz38/50 - [id number] Implanted:Qt y: 1 on 06/22/2020 by Khurram Price MD at [facility] Implant Left: Hip G[employer]W 01/12/2030 [id number] / / [id number] Insrt Hip Or30 2/Mobl Xlpe Sz22/38 - [id number] Implanted:Qt y: 1 on 06/22/2020 by Khurram Price MD at [facility] Implant Left: Hip G[employer]HEW 12/23/2029 [id number] / / [id number] Stem Fem/Hip Polarstem W/Colr Std Sz1 - [id number] Implanted:Qt y: 1 on 06/22/2020 by Khurram Price MD at [facility] Implant Left: Hip G[employer]W 11/27/2026 [id number] / / [id number] Totl Hip 2 Mobl Gómez Nephew - [id number] Implanted:Qt y: 1 on 06/22/2020 by Khurram Price MD at [facility] Implant Left: Hip G[employer]W CAPHIPTOALDUALMOBILI TY / / Scrw Sph Hd Reflection 6x15mm - [id number] Implanted:Qt y: 1 on 08/30/2021 by Khurram Price MD at [facility] Implant Right: Hip G[employer]W 01/31/2031 [id number] / / [id number] Scrw Sph Hd Reflection 6.5x20mm - [id number] Implanted:Qt y: 1 on 08/30/2021 by Khurram Price MD at [facility] Implant Right: Hip G[employer]HEW 02/07/2031 [id number] / / [id number] Liner Hip Or30 2/Mobl Sz38/50 - [id number] Implanted:Qt y: 1 on 08/30/2021 by Khurram Price MD at [facility] Implant Right: Hip G[employer]HEW 11/30/2030 [id number] / / [id number] Stem Fem/Hip Polarstem W/Colr Std Sz1 - [id number] Implanted:Qt y: 1 on 08/30/2021 by Khurram Price MD at [facility] Implant Right: Hip G[employer]HEW 02/03/2028 [id number] / / [id number] Insrt Hip Or30 2/Mobl Xlpe Sz22/38 - [id number] Implanted:Qt y: 1 on 08/30/2021 by Khurram Price MD at [facility] Implant Right: Hip G[employer]W 11/10/2030 [id number] / / [id number] Hd Fem/Hip Oxinium Tpr 05/18 22mm Pls0 - [id number] Implanted:Qt y: 1 on 08/30/2021 by Khurram Price MD at [facility] Implant Right: Hip G[employer]HEW 05/18/2031 [id number] / / [id number] Totl Hip Ernesto Gómez Nephew - [id number] Implanted:Qt y: 1 on 08/30/2021 by Khurram Price MD at [facility] Implant Right: Hip GÓ[employer]HEW CAPHIPTOTALSN2 / / Shll Acet R3 3h Std 50mm - [id number] Implanted:Qt y: 1 on 08/30/2021 by Khurram Price MD at [facility] Implant Right: Hip G[employer]HEW 05/04/2031 [id number] / / [id number] Scrw Sph Hd Reflection 6.5x20mm - [id number] Implanted:Qt y: 1 on 08/30/2021 by Khurram Price MD at [facility] Implant Right: Hip GÓ[employer]PHEW 03/08/2031 [id number] / / [id number] Additional Health Concerns Infection Onset Date 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
--- NOTE | 2025-03-19 13:30 | US_ITS ---
FINAL REPORT CLINICAL HISTORY: decreased distal pulse, current smoker, HTN, previous angioplasty, right claudication, right rest pain, discoloration bilateral feet. FINDINGS: ANKLE-BRACHIAL PRESSURE INDICES Pressure indices are as follows: RIGHT LOWER EXTREMITY: Ankle-brachial pressure index: 0.97 Comments: Borderline LEFT LOWER EXTREMITY: Ankle-brachial pressure index: 1.05 Comments: Normal IMPRESSION: Borderline obstructive peripheral vascular disease of the right lower extremity with no evidence of obstructive peripheral vascular disease on the left. Reviewed, Interpreted and Dictated by Valarie Espinoza MD Transcribed by Alicia Vigil Authenticated and [facility]
== END 2025-03-19 23:59 | disposition home or self-care (01) ==
LOC: RT 13:03
PROVIDERS: PCP Nurse Practitioner Family; Visit Provider Family Medicine
DX: I73.9 Peripheral vascular disease, unspecified (principal); M79.604 Pain in right leg; R09.89 Other specified symptoms and signs involving the circulatory and respiratory systems
CPT/HCPCS: 93923

== ENCOUNTER 2025-04-07 14:49 | Outpatient (CLI) | payer MEDICARE, SELFPAY ==
--- OUTSIDE RECORDS SUMMARY | 2025-04-07 14:51 | XMS_ITS | Clinical Summary ---
Author Organization [facility] Address [address] [place] [address] Phone Care Team Providers Care Recruitment Officer Name Role Phone Karan Bertrand MD, Wilfrido [place] Primary Care Provid er Allergies Active Allergy [...] Zoster (1 of 2) 2010 COVID-19 Vaccine (2024-2 6 season) 2025 Influenza Vaccine (#1) 2025 Hepatitis B Vaccine Aged Out No longe r eligible based on patient's age to complete this topic Meningococcal B Vaccine Aged Out No l onger eligible based on patient's age to complete this topic Insurance [facility] Care Teams Recruitment Officer Relationship Specialty Start Date End Date Wilfrido Russo Sr., MD [address] [place] [address] KE[place] HERRERA [phone] PCP - General Rubber Trimmer 06/30/14
--- OUTSIDE RECORDS SUMMARY | 2025-04-07 14:51 | XMS_ITS | Clinical Summary ---
Author Organization [facility] Address [address] [place] [address] Care Team Providers Care Nnps Name Role Phone Chuy Stewart MD Primary Care Provider [phone] Allergies Active Allergy Reactions Criticality Noted Date [...] crush, chew, or split. Active HYDROcodone-marianna taminophen ([place]) 10-325 MG tablet Active levothyroxine (Synthroid, Levoxyl) [...] (2 of 2 - PCV) 02/27/2019 02/27/2018 [id number] Vaccine (3 - 2024- season) 2025 06/03/2021, [...] patient's age to complete this topic Insurance [facility] MEDICARE Care Teams Nnps Relationship Specialty Start Date End Date Chuy Stewart MD [address] [place] [id number] PCP - General 10/16/20
--- OUTSIDE RECORDS SUMMARY | 2025-04-07 14:51 | XMS_ITS | Clinical Summary ---
Author Organization [facility] Address [address] [place] [address] Care Team Providers Care Last Dipper Name Role Phone hCuy Stewart MD Primary Care Provider Allergies Active [...] Daily. Active Cholecalciferol (Vitamin D3) 1.25 MG (02016 UT) capsule Take 50,000 Units by mouth [...] 01/03/2025 02/27/2018 Medical Devices Implanted Type Area Ferry Engineer Device Identifier Shelf Expiration Date Model / Serial / Lot Shll Acet R3 3h Std 50mm - [id number] Implanted:Qt y: 1 on 06/22/2020 by Khurram Price MD at [facility] Implant Left: Hip GÓ[employer]Z [employer]PHEW 02/13/2030 [id number] / / [id number] Scrw Sph Hd Reflection 6x15mm - [id number] Implanted:Qt y: 1 on 06/22/2020 by Khurram Price MD at [facility] Implant Left: Hip GÓ[employer]PHEW 03/31/2029 [id number] / / [id number] Hd Fem/Hip Oxinium Tpr 05/18 22mm Pls0 - [id number] Implanted:Qt y: 1 on 06/22/2020 by Khurram Price MD at [facility] Implant Left: Hip GÓ[employer]PHEW 08/12/2028 [id number] / / [id number] Liner Hip Or30 2/Mobl Sz38/50 - [id number] Implanted:Qt y: 1 on 06/22/2020 by Khurram Price MD at [facility] Implant Left: Hip GÓ[employer]PHEW 01/12/2030 [id number] / / [id number] Insrt Hip Or30 2/Mobl Xlpe Sz22/38 - [id number] Implanted:Qt y: 1 on 06/22/2020 by Khurram Price MD at [facility] Implant Left: Hip GÓMEZ [employer] NEPHEW 12/23/2029 [id number] / / [id number] Stem Fem/Hip Polarstem W/Colr Std Sz1 - [id number] Implanted:Qt y: 1 on 06/22/2020 by Khurram Price MD at [facility] Implant Left: Hip GÓMEZ [employer] NEPHEW 11/27/2026 [id number] / / [id number] Totl Hip 2 Mobl Gómez Nephew - [id number] Implanted:Qt y: 1 on 06/22/2020 by Khurram Price MD at [facility] Implant Left: Hip GÓ[employer]Z [employer]PHEW CAPHIPTOALDUALMOBILI TY / / Scrw Sph Hd Reflection 6x15mm - [id number] Implanted:Qt y: 1 on 08/30/2021 by Khurram Price MD at [facility] Implant Right: Hip GÓMEZ [employer] NEPHEW 01/31/2031 [id number] / / [id number] Scrw Sph Hd Reflection 6.5x20mm - [id number] Implanted:Qt y: 1 on 08/30/2021 by Khurram Price MD at [facility] Implant Right: Hip GÓMEZ AND NEPHEW 02/07/2031 [id number] / / [id number] Liner Hip Or30 2/Mobl Sz38/50 - [id number] Implanted:Qt y: 1 on 08/30/2021 by Khurram Price MD at [facility] Implant Right: Hip GÓMEZ [employer] NEPHEW 11/30/2030 [id number] / / [id number] Stem Fem/Hip Polarstem W/Colr Std Sz1 - [id number] Implanted:Qt y: 1 on 08/30/2021 by Khurram Price MD at [facility] Implant Right: Hip GÓMEZ [employer] NEPHEW 02/03/2028 [id number] / / [id number] Insrt Hip Or30 2/Mobl Xlpe Sz22/38 - [id number] Implanted:Qt y: 1 on 08/30/2021 by Khurram Price MD at [facility] Implant Right: Hip GÓMEZ [employer]PHEW 11/10/2030 [id number] / / [id number] Hd Fem/Hip Oxinium Tpr 05/18 22mm Pls0 - [id number] Implanted:Qt y: 1 on 08/30/2021 by Khurram Price MD at [facility] Implant Right: Hip GÓMEZ [employer] NEPHEW 05/18/2031 [id number] / / [id number] Totl Hip Ernesto Gómez Nephew - [id number] Implanted:Qt y: 1 on 08/30/2021 by Khurram Price MD at [facility] Implant Right: Hip GÓMEZ AND NEPHEW CAPHIPTOTALSN2 / / Shll Acet R3 3h Std 50mm - [id number] Implanted:Qt y: 1 on 08/30/2021 by Khurram rPice MD at [facility] Implant Right: Hip GÓMEZ AND NEPHEW 05/04/2031 [id number] / / [id number] Scrw Sph Hd Reflection 6.5x20mm - [id number] Implanted:Qt y: 1 on 08/30/2021 by Khurram Price MD at [facility] Implant Right: Hip GÓMEZ AND NEPHEW 03/08/2031 [id number] / / [id number] Additional Health Concerns Infection Onset Date 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
--- NOTE | 2025-04-07 15:00 | MM_ITS ---
PROCEDURE INFORMATION: Exam: MG Bilateral Screening 3D Mammography Exam date and time: 04/07/2025 3:03 PM Age: 64 years old Clinical indication: Screening examination TECHNIQUE: Imaging protocol: Bilateral Screening tomosynthesis and 2D mammography including computer-aided detection (CAD) when performed. COMPARISON: 1. MG MM DIG SCREENING MAMM BI W/CAD 05/13/2022 3:32 PM 2. MG SCBI MM Dig screening mamm BI w/CAD 03/05/2018 10:37 AM FINDINGS: MAMMOGRAPHY: Breast composition: There are scattered areas of fibroglandular density. Mass: None. Architectural distortion: None. Calcifications: No suspicious calcifications. Asymmetric density: None. Skin thickening: None. Axillary adenopathy: None. IMPRESSION: No mammographic evidence of malignancy. Annual screening is recommended unless otherwise clinically indicated. ASSESSMENT: BI-RADS Category 1: Negative.
== END 2025-04-07 23:59 | disposition home or self-care (01) ==
LOC: RAD 14:50
PROVIDERS: PCP Nurse Practitioner Family; Visit Provider Nurse Practitioner Family
DX: Z12.31 Encounter for screening mammogram for malignant neoplasm of breast (principal); R92.323 Mammographic fibroglandular density, bilateral breasts
CPT/HCPCS: 77063; 77067

== ENCOUNTER 2025-04-11 09:55 | Outpatient (CLI) | payer MEDICARE, SELFPAY ==
--- OUTSIDE RECORDS SUMMARY | 2025-04-11 09:58 | XMS_ITS | Clinical Summary ---
Author Organization [facility] Address [address] [place] [address] Care Team Providers Care Tapper Balance Wheel Screw Hole Name Role Phone Chuy Stewart MD Primary Care Provider [phone] Allergies Active Allergy Reactions Criticality Noted Date [...] crush, chew, or split. Active HYDROcodone-marianna taminophen ([place]) 10-325 MG tablet Active levothyroxine (Synthroid, Levoxyl) [...] (2 of 2 - PCV) 02/27/2019 02/27/2018 [id number] Vaccine (3 - 2024- season) 2025 06/03/2021, [...] patient's age to complete this topic Insurance [facility] MEDICARE Care Teams Tapper Balance Wheel Screw Hole Relationship Specialty Start Date End Date Chuy Stewart MD [address] [place] [phone] PCP - General 10/16/20
--- OUTSIDE RECORDS SUMMARY | 2025-04-11 09:58 | XMS_ITS | Clinical Summary ---
Author Organization [facility] Address [address] [place] [address] Phone Care Team Providers Care Printing Assistant Name Role Phone Karan Bertrand MD, Wilfrido [place] Primary Care Provid er Allergies Active Allergy [...] patient's age to complete this topic Insurance [facility] Care Teams Printing Assistant Relationship Specialty Start Date End Date Wilfrido Russo Sr., MD [address] [place] [address] [place] [phone] PCP - General Aboriginal Education Worker Coordinator 06/30/14
--- OUTSIDE RECORDS SUMMARY | 2025-04-11 09:58 | XMS_ITS | Clinical Summary ---
Author Organization [facility] Address [address] [place] [address] Care Team Providers Care Turn Sewer Name Role Phone Chuy Stewart MD Primary [...] Daily. Active Cholecalciferol (Vitamin D3) 1.25 MG (56491 UT) capsule Take 50,000 Units by mouth [...] 01/03/2025 02/27/2018 Medical Devices Implanted Type Area Wagon Driver Salesperson Device Identifier Shelf Expiration Date Model / Serial / Lot Shll Acet R3 3h Std 50mm - [id number] Implanted:Qt y: 1 on 06/22/2020 by Khurram Price MD at [facility] Implant Left: Hip GÓMEZ AND NEPHEW 02/13/2030 [id number] / / [id number] Scrw Sph Hd Reflection 6x15mm - [id number] Implanted:Qt y: 1 on 06/22/2020 by Khurram Price MD at [facility] Implant Left: Hip GÓMEZ AND NEPHEW 03/31/2029 [id number] / / [id number] Hd Fem/Hip Oxinium Tpr 05/18 22mm Pls0 - [id number] Implanted:Qt y: 1 on 06/22/2020 by Khurram Price MD at [facility] Implant Left: Hip GÓMEZ AND NEPHEW 08/12/2028 [id number] / / [id number] Liner Hip Or30 2/Mobl Sz38/50 - [id number] Implanted:Qt y: 1 on 06/22/2020 by Khurram Price MD at [facility] Implant Left: Hip GÓMEZ AND NEPHEW 01/12/2030 [id number] / / [id number] Insrt Hip Or30 2/Mobl Xlpe Sz22/38 - [id number] Implanted:Qt y: 1 on 06/22/2020 by Khurram Price MD at [facility] Implant Left: Hip GÓMEZ AND NEPHEW 12/23/2029 [id number] / / [id number] Stem Fem/Hip Polarstem W/Colr Std Sz1 - [id number] Implanted:Qt y: 1 on 06/22/2020 by Khurram Price MD at [facility] Implant Left: Hip GÓMEZ AND NEPHEW 11/27/2026 [id number] / / [id number] Totl Hip 2 Mobl Gómez Nephew - [id number] Implanted:Qt y: 1 on 06/22/2020 by Khurram Price MD at [facility] Implant Left: Hip GÓMEZ AND NEPHEW CAPHIPTOALDUALMOBILI TY / / Scrw Sph Hd Reflection 6x15mm - [id number] Implanted:Qt y: 1 on 08/30/2021 by Khurram Price MD at [facility] Implant Right: Hip GÓMEZ AND NEPHEW 01/31/2031 [id number] / / [id number] Scrw Sph Hd Reflection 6.5x20mm - [id number] Implanted:Qt y: 1 on 08/30/2021 by Khurram Price MD at [facility] Implant Right: Hip GÓMEZ AND NEPHEW 02/07/2031 [id number] / / [id number] Liner Hip Or30 2/Mobl Sz38/50 - [id number] Implanted:Qt y: 1 on 08/30/2021 by Khurram Price MD at [facility] Implant Right: Hip GÓMEZ AND NEPHEW 11/30/2030 [id number] / / [id number] Stem Fem/Hip Polarstem W/Colr Std Sz1 - [id number] Implanted:Qt y: 1 on 08/30/2021 by Khurram Price MD at [facility] Implant Right: Hip GÓMEZ AND NEPHEW 02/03/2028 [id number] / / [id number] Insrt Hip Or30 2/Mobl Xlpe Sz22/38 - [id number] Implanted:Qt y: 1 on 08/30/2021 by Khurram Price MD at [facility] Implant Right: Hip GÓMEZ AND NEPHEW 11/10/2030 [id number] / / [id number] Hd Fem/Hip Oxinium Tpr 05/18 22mm Pls0 - [id number] Implanted:Qt y: 1 on 08/30/2021 by Khurram Price MD at [facility] Implant Right: Hip GÓMEZ AND NEPHEW 05/18/2031 [id number] / / [id number] Totl Hip Ernesto Gómez Nephew - [id number] Implanted:Qt y: 1 on 08/30/2021 by Khurram Price MD at [facility] Implant Right: Hip GÓMEZ AND NEPHEW CAPHIPTOTALSN2 / / Shll Acet R3 3h Std 50mm - [id number] Implanted:Qt y: 1 on 08/30/2021 by Khurram Price MD at [facility] Implant Right: Hip GÓMEZ AND NEPHEW 05/04/2031 [id number] / / [id number] Scrw Sph Hd Reflection 6.5x20mm - [id number] Implanted:Qt y: 1 on 08/30/2021 by Khurram Price MD at [facility] Implant Right: Hip GÓMEZ AND NEPHEW 03/08/2031 [id number] / / [id number] Additional Health Concerns Infection Onset Date 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
--- NOTE | 2025-04-11 10:00 | CT_ITS ---
FINAL REPORT TECHNIQUE: Post contrast axial imaging of the aorta and bilateral lower extremity was obtained and reviewed. This study was performed with techniques to keep radiation doses as low as reasonably achievable (ALARA). Individualized dose reduction techniques using automated exposure control or adjustment of mA and/or kV according to the patient''s size were employed. CLINICAL HISTORY: abnl ANNA, claudication FINDINGS: The lung bases are clear. The liver parenchyma is homogeneous. The gallbladder is absent. The spleen, pancreas, adrenals, and kidneys are unremarkable. There is a right anterior pelvic wall ostomy. Streak artifact is seen arising from bilateral hip prostheses. The celiac axis and SMA appear patent. The renal arteries are patent. The renal arteries are patent. There is tortuosity of the iliac vessels. The aorta is normal in caliber. There is mild vascular calcification in the distal abdominal aorta. There is no significant iliac stenosis. Right lower extremity: The SFA is widely patent continuous with a patent popliteal artery. There is three-vessel runoff to the right foot. Left lower extremity: The SFA is widely patent continuous with a patent popliteal artery. The mid popliteal artery artery is obscured by streak artifact from left knee prosthesis. There is three-vessel runoff to the left foot. IMPRESSION: No evidence of arterial occlusive disease. Reviewed, Interpreted and Dictated by Gordo Sterling MD Transcribed by Deidre May Authenticated and . [facility]
[2025-04-11] MEDS: IOPAMIDOL-370 (76%);100ML BOTTLE 120 ML IV (10:13)
[2025-04-11] MEDS: 0.9 % SODIUM CHLORIDE 50 ML VIAL IV ×2 (10:13)
[2025-04-11] MEDS: SODIUM CHLORIDE 0.9% 10ML SYR (RAD ONLY) 10 ML IV (10:13)
== END 2025-04-11 23:59 | disposition home or self-care (01) ==
LOC: RAD 09:56
PROVIDERS: PCP Nurse Practitioner Family; Visit Provider Physician Assistant
DX: I73.9 Peripheral vascular disease, unspecified (principal); R68.89 Other general symptoms and signs; R60.0 Localized edema
CPT/HCPCS: 75635; Q9967